=== PATIENT | male | born 1940 | race Caucasian/White ===

== ENCOUNTER 2016-03-31 16:54 | Inpatient (IN) | payer MEDICARE, BC ==
[2016-03-31] MEDS ORDERED: ACETAMINOPHEN 325 MG TABLET PO PRN (17:18)
[2016-03-31] MEDS ORDERED: INFLUENZA ADLT QUAD (36MOS+) 2016-17 VAC 0.5 ML SYR IM PRN (18:06)
[2016-03-31 18:19] LABS: ABSOLUTE EOSINOPHILS # (AUTO) 0.2 10^3/uL (0.0-0.6); ABSOLUTE LYMPHOCYTES (AUTO) 1.4 10^3/uL (0.5-4.7); ABSOLUTE MONOCYTES (AUTO) 1.2 10^3/uL (0.1-1.4); ABSOLUTE NEUT (AUTO) 3.6 10^3/uL (1.7-8.2); BASOPHILS % (AUTO) 0.7 % (0-2); EOSINOPHILS % (AUTO) 2.9 % (0-6); HEMATOCRIT 32.5 % (37.9-51.0); HEMOGLOBIN 9.9 g/dL (13.5-17.0); HGB HCT DIFFERENCE -2.8; LYMPHOCYTES % (AUTO) 21.7 % (13-45); MEAN CORPUSCULAR HEMOGLOBIN 22.8 pg (27.0-33.4); MEAN CORPUSCULAR HGB CONC 30.4 g/dL (32.0-36.0); MEAN CORPUSCULAR VOLUME 75 fl (80-97); MONOCYTES % (AUTO) 18.5 % (3-13); RED BLOOD COUNT 4.35 10^6/uL (4.35-5.55); RED CELL DISTRIBUTION WIDTH 16.9 % (11.5-14.0); SEGMENTED NEUTROPHILS % (AUTO) 56.2 % (42-78); WHITE BLOOD COUNT 6.4 10^3/uL (4.0-10.5)
[2016-03-31] MEDS ORDERED: DEXTROSE 40% GEL 15 GM TUBE PO PRN ×2 (18:24)
[2016-03-31] MEDS ORDERED: GLUCAGON,HUMAN RECOMB 1 MG INJ IM PRN (18:24)
[2016-03-31] MEDS ORDERED: DEXTROSE 50%-WATER 25 GM/50 ML DISP.SYRIN IV PRN ×2 (18:24)
[2016-03-31] MEDS ORDERED: INSULIN LISPRO 100 UNIT/ML 3 ML VIAL SUBCUT PRN (18:24)
[2016-03-31 18:25] LABS: PROTHROMBIN TIME 32.2 SEC (11.4-15.4)
[2016-03-31 19:19] LABS: ANION GAP 15 (5-19); BLOOD UREA NITROGEN 17 mg/dL (7-20); CALCIUM 9.6 mg/dL (8.4-10.2); CARBON DIOXIDE 25 mmol/L (22-30); CHLORIDE 102 mmol/L (98-107); GLUCOSE 115 mg/dL (75-110); MAGNESIUM 1.8 mg/dL (1.6-2.3); POTASSIUM 4.3 mmol/L (3.6-5.0); SODIUM 142.1 mmol/L (137-145)
[2016-03-31 20:25] LABS: CREATINE KINASE MB 1.64 ng/mL (<4.55); FOLATE > 20.00 ng/mL (>2.76); TROPONIN I 0.015 ng/mL
[2016-03-31] MEDS: NORMAL SALINE 250 ML with FUROSEMIDE 250 MG IV PRN ×2 (20:38)
--- NOTE | 2016-03-31 20:43 | CONSULTATION REPORT E ---
Consultation Report NAME: REJI LOUIS : 1940 AGE: 75Y DATE: 03/31/2016 535 A TO: EDGAR CRAVEN M.D. FROM: DAVID LOCKWOOD M.D. Requesting Physician HISTORY OF PRESENT ILLNESS: The patient is a 75-year-old male patient, consultation from hospitalist, Dr. Lockwood, admitted for management of increasing scrotal edema, increasing pedal edema, shortness of breath. Patient is a morbidly obese gentleman with problems with chronic lymphedema and multiple other comorbidities. Surgical consultation for a Li catheter because of extreme difficulty identifying the penile area. REVIEW OF SYSTEMS: Per examination. PHYSICAL EXAMINATION: GENERAL: Reveals a morbidly obese gentleman, obviously short of breath. HEAD/NECK: No lymphadenopathy, no masses. LUNGS: Both lungs with good air entry but some degree of wheeze present. ABDOMINAL: Obese abdomen, soft, nontender. GENITOURINARY: Groin area, scrotal area and bilateral area with extreme amount of swelling with soft tissue dependent edema present. Anal area completely covered up with edema. No palpable gaona glandis. ASSESSMENT AND PLAN: The patient needing Li catheter as per medical service. The patient is able to void urine. He did void urine in front of me, about 200 mL and after cleaning that area, I did attempt to examine gaona glandis. He has about 2-3 inches of skin swollen all the way beyond the level of gaona glandis, which is barely palpable. To be able to access the meatus, he would at least need a dorsal slit. I do not think it is recommendable at this point because it would not heal because of extensive amount of edema and much more moribund surgery. I would recommend as much as possible, try to avoid a Li at this point and monitor his hydration, monitor his edema, monitor his breathing, optimize him medically and then scrotal support. I recommend strongly to transfer him to tertiary care because of so many morbidities and he would need to be in a setting where there is a drafter seismograph and a urologist on board all the time. Recommended that and communicated the same to the patient's primary care. DICTATING PHYSICIAN: EDGAR CRAVEN M.D. [id number] PHY#: [id number] ID: [id number] JOB#: [id number] ACCT: [id number] cc:EDGAR CRAVEN M.D. > BRADEN
--- NOTE | 2016-03-31 21:01 | PDOC CONSULTATION ---
Consultation Consult Date: 03/31/16 Attending physician:: DAVID LE Consult reason:: CHF History of Present Illness Admission Date/PCP: 03/31/16 16:54 DAVID LE MD Patient complains of: Shortness of breath History of Present Illness: This is a 75-year-old maleWith the history of the congestive heart failure and currently see a cardiology at the [facility] with the ejection fraction was between 50-55% was and with the history of the chronic atrial fibrillations and on chronic Coumadin with the history of the, hyperlipidemia and the severe morbid obesity came to the my office today with a complaint of swelling in the lower extremity to both testicles and the very tightness in the abdominal area and a complaining of shortness of the breath. Patient's symptom is more worsening according to the patient for the last 2-3 days. Patient see the news librarian in the last February and told to continues to Lasix and his shortness of the breath with the multifactorial. Patient on questioning denied any chest pain. He denied any sustained palpitations, recent syncope or near syncope. Patient did have a recent hospitalization with urinary difficulty and scrotal edema. Past Medical History Cardiac Medical History: Reports: Atrial Fibrillation, Congestive Heart Failure , Coronary Artery Disease, Hyperlipidema, Hypertension, Other - Moderate pulmonary hypertension Pulmonary Medical History: Reports: Chronic Obstructive Pulmonary Disease (COPD) Endocrine Medical History: Reports: Diabetes Mellitus Type 2 Psychiatric Medical History: Denies: Depression Social History Information Source: Patient Smoking Status: Never Smoker Frequency of Alcohol Use: None Hx Recreational Drug Use: No Hx Prescription Drug Abuse: No - Advance Directive Resuscitation Status: Full Code Surrogate healthcare decision maker:: Patient's spouse Family History Family History: Reviewed & Not Pertinent Parental Family History Reviewed: Yes Children Family History Reviewed: Yes Sibling(s) Family History Reviewed.: Yes - Negative for premature coronary artery disease or sudden cardiac in the family amongst first degree relatives. Medication/Allergy Home Medications: Acetaminophen [Acetaminophen Extra Strength] 500 mg PO Q6HP PRN 03/31/16 Diphenhydramine HCl [Benadryl] 25 mg PO QHS 03/31/16 Furosemide [Lasix] 40 mg PO BID 03/31/16 Losartan Potassium 100 mg PO DAILY 03/31/16 Metformin HCl [Glucophage] 1,000 mg PO BID 03/31/16 Metoprolol Tartrate [Lopressor 50 mg Tablet] 50 mg PO Q12H 03/31/16 Montelukast Sodium [Singulair 10 mg Tablet] 10 mg PO QPM 03/31/16 Multivit-Minerals/Folic Acid [Centrum Multigummies] 80 mcg PO DAILY 03/31/16 Omeprazole 40 mg PO DAILY 03/31/16 Pioglitazone HCl [Actos] 45 mg PO DAILY 03/31/16 Potassium Chloride 1 tab PO Q2D 03/31/16 Simvastatin [Zocor 20 mg Tablet] 20 mg PO QPM 03/31/16 Warfarin Sodium [Coumadin 7.5 mg Tablet] 7.5 mg PO DAILY 03/31/16 Allergies/Adverse Reactions: No Known Allergies Allergy (Unverified 03/31/16 18:25) Review of Systems Review of Systems: Please see history of present illness and past medical history as wall. Constitutional: No fever or chills reported. Head : No recent chronic headaches, recent head injury. Eyes: No recent eye pain, diplopia, redness, discharge, acute visual changes. Ears: No recent chronic ear pain, acute hearing loss, ear discharge. Oral cavity: No recent ulcerations, bleeding, oral cavity discomfort. Neck: No recent acute neck pain reported. Hematologic: No recent easy bruising or bleeding or hematologic malignancy reported. Lymphatic: No recent lymphatic malignancy, chronic lymphadenopathy reported yet Cardiovascular system review: See history of present illness. Increasing pedal edema. No recent syncope or near syncope. Scrotal edema. Respiratory system review: No recent chronic cough, hemoptysis, blood clots in the lungs reported. Severe Shortness of breath on exertion Gastrointestinal system review: Negative for any recent acute or chronic abdominal pain, hematemesis, melena, recent change in bowel habits. Genitourinary system review: No recent acute or chronic hematuria, flank pain, UTI etc. reported. Scrotal edema and also difficulty with urination. Skin system review: Negative for any recent abnormal bruising, no rash, no pruritus reported. Neurologic: No prior history of strokes, mini strokes, seizure disorder. Psychologic: No history of major psychosis or depression reported. Musculoskeletal: Minor aches and pains reported. No acute joint swelling reported. Endocrine: No recent polyuria, polydipsia, recent heat or cold intolerance. Physical Exam Vital Signs: Temp Pulse Resp BP Pulse Ox 98.4 F 92 20 166/62 H 90 L 02/24/17 20:00 03/31/16 20:00 03/31/16 20:00 03/31/16 20:00 03/31/16 20:00 Intake & Output 03/30/16 03/31/16 04/01/16 06:59 06:59 06:59 Intake Total 0 Output Total 0 Balance 0 Weight 164.563 kg Exam: GENERAL: well-nourished and in no acute distress. Alert and oriented x3 HEAD: Atraumatic, normocephalic. EYES: Pupils equal round and reactive to light, extraocular movements intact, sclera anicteric, conjunctiva are normal. ENT: TMs normal, nares patent, oropharynx clear without exudates. Moist mucous membranes. No oral ulcerations or bleeding gums noted NECK: supple without lymphadenopathy. Trachea is central. No cervical or axillary lymphadenopathy noted. Carotids are 2+, JVD 14 CM LUNGS: Respiration seems nonlabored, no significant accessory muscle action noted. Bibasal a fine crackles noted with minimal dullness both bases. Occasional wheezing noted CHEST: Palpation of the chest wall shows no significant chest wall tenderness. No other significant abnormalities noted. HEART: [place] LENS EDGE GRINDER MACHINE, No PSH, 1/6 VINCE aortic area, 1/6 dailey systolic murmur mitral area, no rubs, no gallops. ABDOMEN: Soft, no significant tenderness appreciated, normoactive bowel sounds. No guarding, no rebound. No rigidity noted . No masses appreciated. EXTREMITIES: Pedal pulses are 1-2+, no calf tenderness noted. No clubbing or cyanosis.3 + pedal edema noted NEUROLOGICAL: Focused neurological exam showed no significant neurologic deficit. Normal speech, no focal weakness appreciated. PSYCH: Normal mood, normal affect. Judgment and insight within normal limits. SKIN: No significant ecchymosis, rash, ulcerations or signs of pruritus noted. MUSCULOSKELETAL EXAM: No significant joint swelling noted. Results Laboratory Results: 03/31/16 18:10 03/31/16 18:10 03/31/16 03/31/16 03/31/16 18:10 18:10 18:10 WBC 6.4 RBC 4.35 Hgb 9.9 L Hct 32.5 L MCV 75 L MCH 22.8 L MCHC 30.4 L RDW 16.9 H Plt Count 188 Seg Neutrophils % 56.2 Lymphocytes % 21.7 Monocytes % 18.5 H Eosinophils % 2.9 Basophils % 0.7 Absolute Neutrophils 3.6 Absolute Lymphocytes 1.4 Absolute Monocytes 1.2 Absolute Eosinophils 0.2 Absolute Basophils 0.0 Retic Count (auto) Absolute Retic Sodium 142.1 Potassium 4.3 Chloride 102 Carbon Dioxide 25 Anion Gap 15 BUN 17 Creatinine 1.00 Est GFR ( Amer) > 60 Est GFR (Non-Af Amer) > 60 Glucose 115 H Calcium 9.6 Magnesium 1.8 Iron TIBC % Saturation Ferritin Vitamin B12 Folate TSH 1.34 03/31/16 03/31/16 18:10 18:10 WBC RBC Hgb Hct MCV MCH MCHC RDW Plt Count Seg Neutrophils % Lymphocytes % Monocytes % Eosinophils % Basophils % Absolute Neutrophils Absolute Lymphocytes Absolute Monocytes Absolute Eosinophils Absolute Basophils Retic Count (auto) 1.76 Absolute Retic 0.076 Sodium Potassium Chloride Carbon Dioxide Anion Gap BUN Creatinine Est GFR ( Amer) Est GFR (Non-Af Amer) Glucose Calcium Magnesium Iron 22.0 L TIBC 436 % Saturation 5 Ferritin 23.80 Vitamin B12 302.0 Folate > 20.00 TSH 03/31/16 03/31/16 03/31/16 18:10 18:10 18:10 Creatine Kinase 59 CK-MB (CK-2) 1.64 Troponin I 0.015 NT-Pro-B Natriuret Pep 2010 H EKG Comments: Not available for review will order one. Assessment & Plan - Diagnosis (1) Anasarca Is this a current diagnosis for this admission?: YesPlan: Most likely related to chronic congestive heart failure, right heart failure. Will obtain a 2-D echo in the morning. In the meantime, agree with IV Lasix drip. Alternative will be oral Demadex. Patient will also benefit from spironolactone therapy. (2) Chronic atrial fibrillation Is this a current diagnosis for this admission?: YesPlan: Continue chronic anticoagulation with Coumadin. Follow INR. (3) Congestive heart failure Qualifiers: Congestive heart failure type: diastolic Is this a current diagnosis for this admission?: YesPlan: Patient will benefit from a repeat echocardiogram unless one has been obtained in the last 6 months. Patient will benefit from salt and fluid restriction. Patient will also benefit from nightly positive air pressure ventilation. (4) Hyperlipidemia Qualifiers: Hyperlipidemia type: unspecified Qualified Code(s): E78.5 - Hyperlipidemia, unspecified Is this a current diagnosis for this admission?: Yes (5) Hypertension Qualifiers: Hypertension type: essential hypertension Qualified Code(s): I10 - Essential (primary) hypertension Is this a current diagnosis for this admission?: YesPlan: Hypertension: Reasonably well controlled. Blood pressure goal in this patient is 135/85 or less. This was discussed with the patient. Currently blood pressure under reasonable control. Better medication for this patient are ALLIE inhibitor/ARB/beta tyrese etc. discussed side effects of uncontrolled hypertension and also severe hypotension. (6) Morbid obesity Qualifiers: Obesity type: unspecified obesity type Qualified Code(s): E66.01 - Morbid (severe) obesity due to excess calories Is this a current diagnosis for this admission?: Yes (7) Shortness of breath Is this a current diagnosis for this admission?: YesPlan: Most likely related to CHF along with severe obesity and deconditioning. - Notes Notes: CODE STATUS was discussed, patient remains full code. Surrogate decision-maker patient's . Multiple medical problems were addressed. - Time Time Spent: 30 to 50 Minutes - More than 50% of the time spent coordinating care , discussing management plans with involved caregivers. Management plans discussed with involved personnels. Medical decision making was of moderate complexity. Medications reviewed and adjusted accordingly: Yes
[2016-03-31 21:44] LABS: APPEARANCE,URINE SLIGHTLY-CLOUDY; BILIRUBIN,URINE NEGATIVE (NEGATIVE); GLUCOSE, URINE NEGATIVE (NEGATIVE); KETONES,URINE NEGATIVE (NEGATIVE); LEUKOCYTE ESTERASE,URINE NEGATIVE (NEGATIVE); NITRITE,URINE NEGATIVE (NEGATIVE); PROTEIN,URINE 100 mg/dL (NEGATIVE); URINE SPECIFIC GRAVITY 1.023; UROBILINOGEN,URINE NEGATIVE mg/dL (<2.0)
--- NOTE | 2016-03-31 23:36 | EKG REPORT ---
SEVERITY:- ABNORMAL ECG - ATRIAL FIBRILLATION INCOMPLETE RIGHT BUNDLE BRANCH BLOCK LOW VOLTAGE THROUGHOUT BORDERLINE R WAVE PROGRESSION, ANTERIOR LEADS : Confirmed by: Taylor Murdock MD 31-Mar-2016 23:35:29
[2016-04-01] MEDS: PIOGLITAZONE HCL 30 MG TABLET PO SCH (08:49)
[2016-04-01 09:48] LABS: ABSOLUTE EOSINOPHILS # (AUTO) 0.1 10^3/uL (0.0-0.6); ABSOLUTE LYMPHOCYTES (AUTO) 1.1 10^3/uL (0.5-4.7); ABSOLUTE MONOCYTES (AUTO) 0.8 10^3/uL (0.1-1.4); ABSOLUTE NEUT (AUTO) 3.2 10^3/uL (1.7-8.2); BASOPHILS % (AUTO) 0.6 % (0-2); HEMOGLOBIN 9.5 g/dL (13.5-17.0); HGB HCT DIFFERENCE -2.5; LYMPHOCYTES % (AUTO) 20.1 % (13-45); MEAN CORPUSCULAR HEMOGLOBIN 23.1 pg (27.0-33.4); MEAN CORPUSCULAR HGB CONC 30.7 g/dL (32.0-36.0); MEAN CORPUSCULAR VOLUME 75 fl (80-97); MONOCYTES % (AUTO) 16.1 % (3-13); RED BLOOD COUNT 4.13 10^6/uL (4.35-5.55); RED CELL DISTRIBUTION WIDTH 17.4 % (11.5-14.0); SEGMENTED NEUTROPHILS % (AUTO) 61.2 % (42-78); WHITE BLOOD COUNT 5.3 10^3/uL (4.0-10.5)
[2016-04-01 09:53] LABS: PROTHROMBIN TIME 31.8 SEC (11.4-15.4)
[2016-04-01] MEDS: SPIRONOLACTONE 25 MG TABLET PO SCH (10:12)
[2016-04-01] MEDS: METOPROLOL TARTRATE 50 MG TABLET PO SCH ×2 (10:12→22:50)
[2016-04-01] MEDS: TORSEMIDE 20 MG TABLET PO SCH (10:12)
[2016-04-01] MEDS: LOSARTAN POTASSIUM 50 MG TABLET PO SCH (10:12)
[2016-04-01] MEDS: ASPIRIN 81 MG TABLET, ENT COATED PO SCH (10:13)
[2016-04-01 11:16] LABS: ALANINE AMINOTRANSFERASE 32 U/L (21-72); ALBUMIN 3.9 g/dL (3.5-5.0); ALKALINE PHOSPHATASE 65 U/L (38-126); ANION GAP 16 (5-19); ASPARTATE AMINO TRANSFERASE 27 U/L (17-59); BILIRUBIN,TOTAL 0.9 mg/dL (0.2-1.3); BLOOD UREA NITROGEN 15 mg/dL (7-20); CALCIUM 9.3 mg/dL (8.4-10.2); CARBON DIOXIDE 27 mmol/L (22-30); CHLORIDE 99 mmol/L (98-107); CREATININE RESULT 0.99 mg/dL (0.52-1.25); GLUCOSE 97 mg/dL (75-110); POTASSIUM 3.9 mmol/L (3.6-5.0); SODIUM 141.5 mmol/L (137-145); TOTAL PROTEIN 6.6 g/dL (6.3-8.2)
[2016-04-01] MEDS ORDERED: (PENDING PHARMACY ID) (Acetaminophen [Acetaminophen Extra Strength] 500 MG) PO PRN (11:16)
--- NOTE | 2016-04-01 11:21 | PDOC PROGRESS REPORT ---
Subjective Progress Note for:: 04/01/16 Subjective:: Patient is feeling better compared to yesterday after the start the Lasix drip for. Patient's denied any chest pain and no shortness of the breath is much better. Patient still have a significant swelling in the lower extremity in the testicular area and unable to put the Li catheter because of the lip swelling near the glans and at this point the the consult the surgery and suggest the patient's need a urology to put the Li catheter but the patient at this point urinating fine and I think we just hold the Li catheter placement. Was the urologist is not available in the hospital. Patient's actually feeling better and there is no issue with the urinations so I think he should be okay without the Li catheter. Patient seen by the postal carrier and suggest the continues the current medications and patient's already therapeutic INR Physical Exam Vital Signs: Temp Pulse Resp BP Pulse Ox 97.9 F 103 H 18 135/114 H 97 04/01/16 08:24 04/01/16 08:24 04/01/16 08:24 04/01/16 08:24 04/01/16 08:24 Intake & Output 03/31/16 04/01/16 04/02/16 06:59 06:59 06:59 Intake Total 50 Output Total 1400 Balance -1350 Weight 157.896 kg General appearance: PRESENT: no acute distress, well-developed, well-nourished Head exam: PRESENT: atraumatic, normocephalic Eye exam: PRESENT: conjunctiva pink, EOMI, PERRLA. ABSENT: scleral icterus Ear exam: PRESENT: normal external ear exam Mouth exam: PRESENT: moist, tongue midline Neck exam: PRESENT: full ROM. ABSENT: carotid bruit, JVD, lymphadenopathy, thyromegaly Respiratory exam: PRESENT: decreased breath sounds Cardiovascular exam: PRESENT: RRR. ABSENT: diastolic murmur, rubs, systolic murmur Pulses: PRESENT: normal dorsalis pedis pul, +2 pedal pulses bilateral Vascular exam: PRESENT: normal capillary refill GI/Abdominal exam: PRESENT: normal bowel sounds, soft. ABSENT: distended, guarding, mass, organolmegaly, rebound, tenderness Rectal exam: PRESENT: deferred Gentrourinary exam: PRESENT: scrotal swelling Extremities exam: PRESENT: pedal edema Neurological exam: PRESENT: alert, awake, oriented to person, oriented to place , oriented to time, oriented to situation, CN II-XII grossly intact. ABSENT: motor sensory deficit Psychiatric exam: PRESENT: appropriate affect, normal mood. ABSENT: homicidal ideation, suicidal ideation Skin exam: PRESENT: dry, intact, warm. ABSENT: cyanosis, rash Results Laboratory Results: 04/01/16 07:11 04/01/16 10:22 03/31/16 03/31/16 03/31/16 18:10 18:10 18:10 WBC 6.4 RBC 4.35 Hgb 9.9 L Hct 32.5 L MCV 75 L MCH 22.8 L MCHC 30.4 L RDW 16.9 H Plt Count 188 Seg Neutrophils % 56.2 Lymphocytes % 21.7 Monocytes % 18.5 H Eosinophils % 2.9 Basophils % 0.7 Absolute Neutrophils 3.6 Absolute Lymphocytes 1.4 Absolute Monocytes 1.2 Absolute Eosinophils 0.2 Absolute Basophils 0.0 Retic Count (auto) Absolute Retic Sodium 142.1 Potassium 4.3 Chloride 102 Carbon Dioxide 25 Anion Gap 15 BUN 17 Creatinine 1.00 Est GFR ( Amer) > 60 Est GFR (Non-Af Amer) > 60 Glucose 115 H Calcium 9.6 Magnesium 1.8 Iron TIBC % Saturation Ferritin Total Bilirubin AST ALT Alkaline Phosphatase Total Protein Albumin Vitamin B12 Folate TSH 1.34 Urine Color Urine Appearance Urine pH Ur Specific [place] Urine Protein Urine Glucose (UA) Urine Ketones Urine Blood Urine Nitrite Ur Leukocyte Esterase Urine WBC (Auto) Urine RBC (Auto) 03/31/16 03/31/16 03/31/16 18:10 18:10 21:20 WBC RBC Hgb Hct MCV MCH MCHC RDW Plt Count Seg Neutrophils % Lymphocytes % Monocytes % Eosinophils % Basophils % Absolute Neutrophils Absolute Lymphocytes Absolute Monocytes Absolute Eosinophils Absolute Basophils Retic Count (auto) 1.76 Absolute Retic 0.076 Sodium Potassium Chloride Carbon Dioxide Anion Gap BUN Creatinine Est GFR ( Amer) Est GFR (Non-Af Amer) Glucose Calcium Magnesium Iron 22.0 L TIBC 436 % Saturation 5 Ferritin 23.80 Total Bilirubin AST ALT Alkaline Phosphatase Total Protein Albumin Vitamin B12 302.0 Folate > 20.00 TSH Urine Color YELLOW Urine Appearance SLIGHTLY-CLOUDY Urine pH 5.0 Ur Specific [place] 1.023 Urine Protein 100 H Urine Glucose (UA) NEGATIVE Urine Ketones NEGATIVE Urine Blood NEGATIVE Urine Nitrite NEGATIVE Ur Leukocyte Esterase NEGATIVE Urine WBC (Auto) 1 Urine RBC (Auto) 1 04/01/16 04/01/16 07:11 10:22 WBC 5.3 RBC 4.13 L Hgb 9.5 L Hct 31.0 L MCV 75 L MCH 23.1 L MCHC 30.7 L RDW 17.4 H Plt Count 157 Seg Neutrophils % 61.2 Lymphocytes % 20.1 Monocytes % 16.1 H Eosinophils % 2.0 Basophils % 0.6 Absolute Neutrophils 3.2 Absolute Lymphocytes 1.1 Absolute Monocytes 0.8 Absolute Eosinophils 0.1 Absolute Basophils 0.0 Retic Count (auto) Absolute Retic Sodium 141.5 Potassium 3.9 Chloride 99 Carbon Dioxide 27 Anion Gap 16 BUN 15 Creatinine 0.99 Est GFR ( Amer) > 60 Est GFR (Non-Af Amer) > 60 Glucose 97 Calcium 9.3 Magnesium Iron TIBC % Saturation Ferritin Total Bilirubin 0.9 AST 27 ALT 32 Alkaline Phosphatase 65 Total Protein 6.6 Albumin 3.9 Vitamin B12 Folate TSH Urine Color Urine Appearance Urine pH Ur Specific [place] Urine Protein Urine Glucose (UA) Urine Ketones Urine Blood Urine Nitrite Ur Leukocyte Esterase Urine WBC (Auto) Urine RBC (Auto) 03/31/16 03/31/16 03/31/16 18:10 18:10 18:10 Creatine Kinase 59 CK-MB (CK-2) 1.64 Troponin I 0.015 NT-Pro-B Natriuret Pep 2010 H Assessment & Plan - Diagnosis (1) Anasarca Is this a current diagnosis for this admission?: YesPlan: Continues the Lasix drip and follow with the cardiology (2) Congestive heart failure Qualifiers: Congestive heart failure type: diastolic Is this a current diagnosis for this admission?: YesPlan: The right-sided congestive heart failure and continues the current medication (3) Chronic atrial fibrillation Is this a current diagnosis for this admission?: YesPlan: On chronic Coumadin (4) Hypertension Qualifiers: Hypertension type: essential hypertension Qualified Code(s): I10 - Essential (primary) hypertension Is this a current diagnosis for this admission?: YesPlan: Continuous current medication (5) Hyperlipidemia Qualifiers: Hyperlipidemia type: unspecified Qualified Code(s): E78.5 - Hyperlipidemia, unspecified Is this a current diagnosis for this admission?: YesPlan: Stable (6) Morbid obesity Qualifiers: Obesity type: unspecified obesity type Qualified Code(s): E66.01 - Morbid (severe) obesity due to excess calories Is this a current diagnosis for this admission?: YesPlan: Patient is probably need a sleep study (7) Shortness of breath Is this a current diagnosis for this admission?: YesPlan: Most likely from the congestive heart failure will do the CT of the chest without contrast pain patient's probably need a sleep study - Time Time Spent with patient: 15-24 minutes Medications reviewed and adjusted accordingly: Yes Anticipated discharge: Home Within: Other - Inpatient Certification Medical Necessity: Need Close Monitoring Due to Risk of Patient Decompensation Post Hospital Care: D/C [employer] Documentation - Plan Summary Plan Summary: Contiguous the current medications discussed with the patient and the family and discussed with the cardiology the patient's continues to be improving
[2016-04-01] MEDS ORDERED: POTASSIUM CHLORIDE PO SCH (11:30)
[2016-04-01] MEDS ORDERED: METOPROLOL TARTRATE 50 MG TABLET PO SCH (11:30)
[2016-04-01] MEDS ORDERED: LOSARTAN POTASSIUM 50 MG TABLET PO ONE (13:00)
[2016-04-01] MEDS ORDERED: LANSOPRAZOLE 30 MG TAB.RAP.DR PO ONE (13:00)
--- NOTE | 2016-04-01 14:23 | PDOC PROGRESS REPORT ---
Subjective Progress Note for:: 04/01/16 Subjective:: Patient seems to be doing better with gradual improvement. Pt is denying any chest arm or neck discomfort. Patient denying any PND, orthopnea. Patient denied any sustained palpitations, dizziness, syncope, near syncope. Patient denying any fever chills. Patient denying any other significant discomfort. Patient still has significant pedal edema and dyspnea but improved since yesterday. Patient is maintaining atrial fibrillation with controlled ventricular response Review of systems: Rest review of systems negative. Medications: Medications have been reviewed. Physical Exam Vital Signs: Temp Pulse Resp BP Pulse Ox 97.9 F 98 18 106/60 96 04/01/16 11:32 04/01/16 11:32 04/01/16 11:32 04/01/16 11:32 04/01/16 11:32 Intake & Output 03/31/16 04/01/16 04/02/16 06:59 06:59 06:59 Intake Total 50 Output Total 1400 Balance -1350 Weight 157.896 kg Exam: GENERAL: well-nourished and in no acute distress. Alert and oriented x3 HEAD: Atraumatic, normocephalic. EYES: Pupils equal round and reactive to light, extraocular movements intact, sclera anicteric, conjunctiva are normal. ENT: TMs normal, nares patent, oropharynx clear without exudates. Moist mucous membranes. No oral ulcerations or bleeding gums noted NECK: supple without lymphadenopathy. Trachea is central. No cervical or axillary lymphadenopathy noted. Carotids are 2+, JVD 12 CENTIMETERS LUNGS: Respiration seems nonlabored, no significant accessory muscle action noted. Breath sounds clear to auscultation bilaterally and equal noted. No wheezes rales or rhonchi noted. No significant dullness noted on percussion. CHEST: Palpation of the chest wall shows no significant chest wall tenderness. No other significant abnormalities noted. 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 ABDOMEN: Soft, no significant tenderness appreciated, normoactive bowel sounds. No guarding, no rebound. No rigidity noted . No masses appreciated. EXTREMITIES: Pedal pulses are 1-2+, no calf tenderness noted. No clubbing or cyanosis.3+ pedal edema noted NEUROLOGICAL: Focused neurological exam showed no significant neurologic deficit. Normal speech, no focal weakness appreciated. PSYCH: Normal mood, normal affect. Judgment and insight within normal limits. SKIN: No significant ecchymosis, mild erythematous rash noted both lower extremity. MUSCULOSKELETAL EXAM: No significant joint swelling noted. Results Laboratory Results: 04/01/16 07:11 04/01/16 10:22 03/31/16 03/31/16 03/31/16 18:10 18:10 18:10 WBC 6.4 RBC 4.35 Hgb 9.9 L Hct 32.5 L MCV 75 L MCH 22.8 L MCHC 30.4 L RDW 16.9 H Plt Count 188 Seg Neutrophils % 56.2 Lymphocytes % 21.7 Monocytes % 18.5 H Eosinophils % 2.9 Basophils % 0.7 Absolute Neutrophils 3.6 Absolute Lymphocytes 1.4 Absolute Monocytes 1.2 Absolute Eosinophils 0.2 Absolute Basophils 0.0 Retic Count (auto) Absolute Retic Sodium 142.1 Potassium 4.3 Chloride 102 Carbon Dioxide 25 Anion Gap 15 BUN 17 Creatinine 1.00 Est GFR ( Amer) > 60 Est GFR (Non-Af Amer) > 60 Glucose 115 H Calcium 9.6 Magnesium 1.8 Iron TIBC % Saturation Ferritin Total Bilirubin AST ALT Alkaline Phosphatase Total Protein Albumin Vitamin B12 Folate TSH 1.34 Urine Color Urine Appearance Urine pH Ur Specific Alpha Urine Protein Urine Glucose (UA) Urine Ketones Urine Blood Urine Nitrite Ur Leukocyte Esterase Urine WBC (Auto) Urine RBC (Auto) 03/31/16 03/31/16 03/31/16 18:10 18:10 21:20 WBC RBC Hgb Hct MCV MCH MCHC RDW Plt Count Seg Neutrophils % Lymphocytes % Monocytes % Eosinophils % Basophils % Absolute Neutrophils Absolute Lymphocytes Absolute Monocytes Absolute Eosinophils Absolute Basophils Retic Count (auto) 1.76 Absolute Retic 0.076 Sodium Potassium Chloride Carbon Dioxide Anion Gap BUN Creatinine Est GFR ( Amer) Est GFR (Non-Af Amer) Glucose Calcium Magnesium Iron 22.0 L TIBC 436 % Saturation 5 Ferritin 23.80 Total Bilirubin AST ALT Alkaline Phosphatase Total Protein Albumin Vitamin B12 302.0 Folate > 20.00 TSH Urine Color YELLOW Urine Appearance SLIGHTLY-CLOUDY Urine pH 5.0 Ur Specific Alpha 1.023 Urine Protein 100 H Urine Glucose (UA) NEGATIVE Urine Ketones NEGATIVE Urine Blood NEGATIVE Urine Nitrite NEGATIVE Ur Leukocyte Esterase NEGATIVE Urine WBC (Auto) 1 Urine RBC (Auto) 1 04/01/16 04/01/16 07:11 10:22 WBC 5.3 RBC 4.13 L Hgb 9.5 L Hct 31.0 L MCV 75 L MCH 23.1 L MCHC 30.7 L RDW 17.4 H Plt Count 157 Seg Neutrophils % 61.2 Lymphocytes % 20.1 Monocytes % 16.1 H Eosinophils % 2.0 Basophils % 0.6 Absolute Neutrophils 3.2 Absolute Lymphocytes 1.1 Absolute Monocytes 0.8 Absolute Eosinophils 0.1 Absolute Basophils 0.0 Retic Count (auto) Absolute Retic Sodium 141.5 Potassium 3.9 Chloride 99 Carbon Dioxide 27 Anion Gap 16 BUN 15 Creatinine 0.99 Est GFR ( Amer) > 60 Est GFR (Non-Af Amer) > 60 Glucose 97 Calcium 9.3 Magnesium Iron TIBC % Saturation Ferritin Total Bilirubin 0.9 AST 27 ALT 32 Alkaline Phosphatase 65 Total Protein 6.6 Albumin 3.9 Vitamin B12 Folate TSH Urine Color Urine Appearance Urine pH Ur Specific Alpha Urine Protein Urine Glucose (UA) Urine Ketones Urine Blood Urine Nitrite Ur Leukocyte Esterase Urine WBC (Auto) Urine RBC (Auto) 03/31/16 03/31/16 03/31/16 18:10 18:10 18:10 Creatine Kinase 59 CK-MB (CK-2) 1.64 Troponin I 0.015 NT-Pro-B Natriuret Pep 2010 H Impressions: Chest CT 04/01/16 00:00 IMPRESSION: 1. Cardiomegaly. Right pleural effusion. 2. Cirrhosis. Mild ascites. Assessment & Plan - Diagnosis (1) Anasarca Is this a current diagnosis for this admission?: Yes (2) Chronic atrial fibrillation Is this a current diagnosis for this admission?: Yes (3) Congestive heart failure Qualifiers: Congestive heart failure type: diastolic Is this a current diagnosis for this admission?: Yes (4) Hyperlipidemia Qualifiers: Hyperlipidemia type: unspecified Qualified Code(s): E78.5 - Hyperlipidemia, unspecified Is this a current diagnosis for this admission?: Yes (5) Hypertension Qualifiers: Hypertension type: essential hypertension Qualified Code(s): I10 - Essential (primary) hypertension Is this a current diagnosis for this admission?: Yes (6) Morbid obesity Qualifiers: Obesity type: unspecified obesity type Qualified Code(s): E66.01 - Morbid (severe) obesity due to excess calories Is this a current diagnosis for this admission?: Yes (7) Shortness of breath Is this a current diagnosis for this admission?: Yes - Notes Notes: Anasarca: Related to CHF, predominantly right-sided. Patient on IV Lasix. Have placed patient on by mouth torsemide 20 mg. Chronic atrial fibrillation: Rate is well controlled. Continue chronic Coumadin therapy. Congestive heart failure: [place] to be predominantly right-sided. Patient tells me that his echocardiogram was quite some time ago. It may be worthwhile to consider a 2-D echo. Dyslipidemia: Currently stable. Continue statin therapy. Hypertension: Blood pressure well controlled. Morbid obesity: Patient will benefit from weight loss. Dyspnea: Related to CHF, obesity, deconditioning, probable underlying COPD. CT scan results reviewed. Patient noted to have moderate right pleural effusion as well as cirrhosis and ascites. Patient was placed on spironolactone. Dose will be increased. - Time Time with patient: Greater than 35 minutes - CODE STATUS was discussed, patient remains full code. Surrogate decision-maker unchanged. Multiple medical problems were addressed.More than 50% of the time spent coordinating care, discussing management plans with involved caregivers. Management plans discussed with involved personnels. Medical decision making was of moderate complexity.
[2016-04-01] MEDS ORDERED: ACETAMINOPHEN 325 MG TABLET PO PRN (15:22)
[2016-04-01] MEDS ORDERED: SIMVASTATIN 10 MG TABLET PO SCH (18:00)
[2016-04-01] MEDS ORDERED: MONTELUKAST SODIUM 10 MG TABLET PO SCH (18:00)
[2016-04-01] MEDS: MONTELUKAST SODIUM 10 MG TABLET PO SCH (20:35)
[2016-04-01] MEDS ORDERED: WARFARIN SODIUM 7.5 MG TABLET PO SCH (22:00)
[2016-04-01] MEDS: CEFEPIME 1 GM/D5W RTU 50 ML IV SCH (22:48)
[2016-04-01] MEDS: DIPHENHYDRAMINE HCL 25 MG CAPSULE PO SCH (22:49)
[2016-04-01] MEDS: SIMVASTATIN 10 MG TABLET PO SCH (22:49)
[2016-04-01] MEDS: NORMAL SALINE 250 ML with FUROSEMIDE 250 MG IV PRN ×2 (22:49)
[2016-04-02] MEDS ORDERED: LANSOPRAZOLE 30 MG TAB.RAP.DR PO SCH (06:00)
[2016-04-02 07:41] LABS: ABSOLUTE EOSINOPHILS # (AUTO) 0.1 10^3/uL (0.0-0.6); ABSOLUTE LYMPHOCYTES (AUTO) 0.8 10^3/uL (0.5-4.7); ABSOLUTE MONOCYTES (AUTO) 0.8 10^3/uL (0.1-1.4); ABSOLUTE NEUT (AUTO) 3.7 10^3/uL (1.7-8.2); BASOPHILS % (AUTO) 0.3 % (0-2); EOSINOPHILS % (AUTO) 2.4 % (0-6); HEMATOCRIT 32.4 % (37.9-51.0); HEMOGLOBIN 9.9 g/dL (13.5-17.0); HGB HCT DIFFERENCE -2.7; LYMPHOCYTES % (AUTO) 15.2 % (13-45); MEAN CORPUSCULAR HEMOGLOBIN 23.1 pg (27.0-33.4); MEAN CORPUSCULAR HGB CONC 30.6 g/dL (32.0-36.0); MEAN CORPUSCULAR VOLUME 76 fl (80-97); MONOCYTES % (AUTO) 14.7 % (3-13); RED BLOOD COUNT 4.29 10^6/uL (4.35-5.55); RED CELL DISTRIBUTION WIDTH 17.1 % (11.5-14.0); SEGMENTED NEUTROPHILS % (AUTO) 67.4 % (42-78); WHITE BLOOD COUNT 5.6 10^3/uL (4.0-10.5)
[2016-04-02 07:54] LABS: PROTHROMBIN TIME 33.9 SEC (11.4-15.4)
[2016-04-02 08:02] LABS: ANION GAP 12 (5-19); BLOOD UREA NITROGEN 16 mg/dL (7-20); CARBON DIOXIDE 32 mmol/L (22-30); CHLORIDE 96 mmol/L (98-107); CREATININE RESULT 1.07 mg/dL (0.52-1.25); GLUCOSE 111 mg/dL (75-110); POTASSIUM 3.5 mmol/L (3.6-5.0); SODIUM 140.4 mmol/L (137-145)
[2016-04-02] MEDS: PIOGLITAZONE HCL 30 MG TABLET PO SCH (08:06)
[2016-04-02] MEDS: CEFEPIME 1 GM/D5W RTU 50 ML IV SCH ×2 (09:48→21:45)
[2016-04-02] MEDS: SPIRONOLACTONE 25 MG TABLET PO SCH (09:51)
[2016-04-02] MEDS: POTASSIUM CHLORIDE 10 MEQ TABLET.SA PO SCH (09:52)
[2016-04-02] MEDS: LOSARTAN POTASSIUM 50 MG TABLET PO SCH (09:52)
[2016-04-02] MEDS: METOPROLOL TARTRATE 50 MG TABLET PO SCH ×2 (09:52→21:46)
[2016-04-02] MEDS: TORSEMIDE 20 MG TABLET PO SCH (09:52)
[2016-04-02] MEDS: ASPIRIN 81 MG TABLET, ENT COATED PO SCH (09:52)
[2016-04-02] MEDS ORDERED: (PENDING PHARMACY ID) (Losartan Potassium [Losartan Potassium] 100 MG) PO SCH (10:00)
[2016-04-02] MEDS ORDERED: (PENDING PHARMACY ID) (Warfarin Sodium 7.5 MG) PO SCH (10:00)
[2016-04-02] MEDS ORDERED: LOSARTAN POTASSIUM 50 MG TABLET PO SCH (10:00)
[2016-04-02] MEDS ORDERED: POTASSIUM CHLORIDE 10 MEQ TABLET.SA PO SCH (10:00)
[2016-04-02] MEDS ORDERED: POTASSIUM CHLORIDE 10 MEQ TABLET.SA PO ONE (11:30)
--- NOTE | 2016-04-02 11:33 | PDOC PROGRESS REPORT ---
Subjective Progress Note for:: 04/02/16 Subjective:: Patient is doing fair patient's CT chest was submitted pleural effusion and CT abdomen and pelvis swelling the ascites and cirrhosis of the liver and most likely is coming from the right-sided heart failure as per discussed with the cardiology. Patient's currently on a Lasix drip and patient's currently doing fair and a much better. Patient's the urinating well any problem Physical Exam Vital Signs: Temp Pulse Resp BP Pulse Ox 97.8 F 124 H 19 132/66 H 99 04/02/16 08:08 04/02/16 08:08 04/02/16 08:08 04/02/16 08:08 04/02/16 08:08 Intake & Output 04/01/16 04/02/16 04/03/16 06:59 06:59 06:59 Intake Total 50 1811 Output Total 1400 2170 Balance -1350 -359 Weight 157.896 kg 158.6 kg General appearance: PRESENT: no acute distress, well-developed, well-nourished Head exam: PRESENT: atraumatic, normocephalic Eye exam: PRESENT: conjunctiva pink, EOMI, PERRLA. ABSENT: scleral icterus Ear exam: PRESENT: normal external ear exam Mouth exam: PRESENT: moist, tongue midline Neck exam: PRESENT: full ROM. ABSENT: carotid bruit, JVD, lymphadenopathy, thyromegaly Respiratory exam: PRESENT: decreased breath sounds Cardiovascular exam: PRESENT: RRR. ABSENT: diastolic murmur, rubs, systolic murmur Pulses: PRESENT: normal dorsalis pedis pul, +2 pedal pulses bilateral Vascular exam: PRESENT: normal capillary refill GI/Abdominal exam: PRESENT: ascites, normal bowel sounds. ABSENT: rebound, tenderness Rectal exam: PRESENT: deferred Extremities exam: PRESENT: pedal edema Additional comments: Sorotal edema Neurological exam: PRESENT: alert, awake, oriented to person, oriented to place , oriented to time, oriented to situation, CN II-XII grossly intact. ABSENT: motor sensory deficit Psychiatric exam: PRESENT: appropriate affect, normal mood. ABSENT: homicidal ideation, suicidal ideation Skin exam: PRESENT: dry, intact, warm. ABSENT: cyanosis, rash Results Laboratory Results: 04/02/16 07:28 04/02/16 07:28 02/26/17 02/26/17 07:28 07:28 WBC 5.6 RBC 4.29 L Hgb 9.9 L Hct 32.4 L MCV 76 L MCH 23.1 L MCHC 30.6 L RDW 17.1 H Plt Count 178 Seg Neutrophils % 67.4 Lymphocytes % 15.2 Monocytes % 14.7 H Eosinophils % 2.4 Basophils % 0.3 Absolute Neutrophils 3.7 Absolute Lymphocytes 0.8 Absolute Monocytes 0.8 Absolute Eosinophils 0.1 Absolute Basophils 0.0 Sodium 140.4 Potassium 3.5 L Chloride 96 L Carbon Dioxide 32 H Anion Gap 12 BUN 16 Creatinine 1.07 Est GFR ( Amer) > 60 Est GFR (Non-Af Amer) > 60 Glucose 111 H Calcium 9.0 03/31/16 03/31/16 03/31/16 18:10 18:10 18:10 Creatine Kinase 59 CK-MB (CK-2) 1.64 Troponin I 0.015 NT-Pro-B Natriuret Pep 2010 H Impressions: Abdomen/Pelvis CT 04/01/16 00:00 IMPRESSION: Cirrhosis. Ascites. No acute findings. Chest CT 04/01/16 00:00 IMPRESSION: 1. Cardiomegaly. Right pleural effusion. 2. Cirrhosis. Mild ascites. Assessment & Plan - Diagnosis (1) Anasarca Is this a current diagnosis for this admission?: YesPlan: Continues the Lasix drip and follow with the cardiology (2) Congestive heart failure Qualifiers: Congestive heart failure type: unspecified congestive heart failure type Is this a current diagnosis for this admission?: YesPlan: Right-sided congestive heart failure continues IV Lasix drip (3) Chronic atrial fibrillation Is this a current diagnosis for this admission?: YesPlan: On chronic Coumadin (4) Hypertension Qualifiers: Hypertension type: essential hypertension Qualified Code(s): I10 - Essential (primary) hypertension Is this a current diagnosis for this admission?: YesPlan: Continuous current medication (5) Hyperlipidemia Qualifiers: Hyperlipidemia type: unspecified Qualified Code(s): E78.5 - Hyperlipidemia, unspecified Is this a current diagnosis for this admission?: YesPlan: Stable (6) Morbid obesity Qualifiers: Obesity type: unspecified obesity type Qualified Code(s): E66.01 - Morbid (severe) obesity due to excess calories Is this a current diagnosis for this admission?: YesPlan: Patient is probably need a sleep study (7) Shortness of breath Is this a current diagnosis for this admission?: Yes - Time Time Spent with patient: 15-24 minutes Medications reviewed and adjusted accordingly: Yes Anticipated discharge: Home Within: Other - Inpatient Certification Medical Necessity: Significant Comorbidiites Make Outpatient Treatment Too Risky , Need Close Monitoring Due to Risk of Patient Decompensation 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 Discussed with the patient and the about the current conditions
--- NOTE | 2016-04-02 13:17 | PDOC PROGRESS REPORT ---
Subjective Progress Note for:: 04/02/16 Subjective:: Patient seems to be doing better with gradual improvement. Pt is denying any chest arm or neck discomfort. Patient denying any PND, orthopnea. Patient denied any sustained palpitations, dizziness, syncope, near syncope. Patient denying any fever chills. Patient denying any other significant discomfort. Patient still has significant pedal edema and dyspnea but improved since yesterday. Patient is maintaining atrial fibrillation with controlled ventricular response. Patient denied any problems with urination. Review of systems: Rest review of systems negative. Medications: Medications have been reviewed. Physical Exam Vital Signs: Temp Pulse Resp BP Pulse Ox 98.0 F 97 19 112/62 93 04/02/16 12:03 04/02/16 12:03 04/02/16 12:03 04/02/16 12:03 04/02/16 12:03 Intake & Output 04/01/16 04/02/16 04/03/16 06:59 06:59 06:59 Intake Total 50 1811 Output Total 1400 2170 Balance -1350 -359 Weight 157.896 kg 158.6 kg Exam: GENERAL: well-nourished and in no acute distress. Alert and oriented x3 HEAD: Atraumatic, normocephalic. EYES: Pupils equal round and reactive to light, extraocular movements intact, sclera anicteric, conjunctiva are normal. ENT: TMs normal, nares patent, oropharynx clear without exudates. Moist mucous membranes. No oral ulcerations or bleeding gums noted NECK: supple without lymphadenopathy. Trachea is central. No cervical or axillary lymphadenopathy noted. Carotids are 2+, JVD 10 CM LUNGS: Respiration seems nonlabored, no significant accessory muscle action noted. Breath sounds clear to auscultation bilaterally and equal noted. No wheezes rales or rhonchi noted. No significant dullness noted on percussion. CHEST: Palpation of the chest wall shows no significant chest wall tenderness. No other significant abnormalities noted. 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 ABDOMEN: Soft, no significant tenderness appreciated, normoactive bowel sounds. No guarding, no rebound. No rigidity noted . No masses appreciated. EXTREMITIES: Pedal pulses are 1-2+, no calf tenderness noted. No clubbing or cyanosis.2-3 + pedal edema noted. Mild lower leg erythematous changes noted NEUROLOGICAL: Focused neurological exam showed no significant neurologic deficit. Normal speech, no focal weakness appreciated. PSYCH: Normal mood, normal affect. Judgment and insight within normal limits. SKIN: No significant ecchymosis, rash, ulcerations or signs of pruritus noted. MUSCULOSKELETAL EXAM: No significant joint swelling noted. Results Laboratory Results: 04/02/16 07:28 04/02/16 07:28 04/02/16 04/02/16 07:28 07:28 WBC 5.6 RBC 4.29 L Hgb 9.9 L Hct 32.4 L MCV 76 L MCH 23.1 L MCHC 30.6 L RDW 17.1 H Plt Count 178 Seg Neutrophils % 67.4 Lymphocytes % 15.2 Monocytes % 14.7 H Eosinophils % 2.4 Basophils % 0.3 Absolute Neutrophils 3.7 Absolute Lymphocytes 0.8 Absolute Monocytes 0.8 Absolute Eosinophils 0.1 Absolute Basophils 0.0 Sodium 140.4 Potassium 3.5 L Chloride 96 L Carbon Dioxide 32 H Anion Gap 12 BUN 16 Creatinine 1.07 Est GFR ( Amer) > 60 Est GFR (Non-Af Amer) > 60 Glucose 111 H Calcium 9.0 03/31/16 03/31/16 03/31/16 18:10 18:10 18:10 Creatine Kinase 59 CK-MB (CK-2) 1.64 Troponin I 0.015 NT-Pro-B Natriuret Pep 2010 H Impressions: Abdomen/Pelvis CT 04/01/16 00:00 IMPRESSION: Cirrhosis. Ascites. No acute findings. Chest CT 04/01/16 00:00 IMPRESSION: 1. Cardiomegaly. Right pleural effusion. 2. Cirrhosis. Mild ascites. Assessment & Plan - Diagnosis (1) Anasarca Is this a current diagnosis for this admission?: Yes (2) Chronic atrial fibrillation Is this a current diagnosis for this admission?: Yes (3) Congestive heart failure Qualifiers: Congestive heart failure type: unspecified congestive heart failure type Is this a current diagnosis for this admission?: Yes (4) Hyperlipidemia Qualifiers: Hyperlipidemia type: unspecified Qualified Code(s): E78.5 - Hyperlipidemia, unspecified Is this a current diagnosis for this admission?: Yes (5) Hypertension Qualifiers: Hypertension type: essential hypertension Qualified Code(s): I10 - Essential (primary) hypertension Is this a current diagnosis for this admission?: Yes (6) Morbid obesity Qualifiers: Obesity type: unspecified obesity type Qualified Code(s): E66.01 - Morbid (severe) obesity due to excess calories Is this a current diagnosis for this admission?: Yes (7) Shortness of breath Is this a current diagnosis for this admission?: Yes (8) Sleep-disordered breathing Is this a current diagnosis for this admission?: Yes - Notes Notes: Anasarca: Related to CHF, predominantly right-sided. Patient on IV Lasix. Have placed patient on by mouth torsemide 20 mg. Patient also placed on spironolactone. Chronic atrial fibrillation: Rate is well controlled. Continue chronic Coumadin therapy. Congestive heart failure: [place] to be predominantly right-sided. Patient tells me that his echocardiogram was quite some time ago. It may be worthwhile to consider a 2-D echo. Dyslipidemia: Currently stable. Continue statin therapy. Hypertension: Blood pressure well controlled. Morbid obesity: Patient will benefit from weight loss. Dyspnea: Related to CHF, obesity, deconditioning, probable underlying COPD. Sleep disordered breathing: Based on patient's symptoms, oropharyngeal exam, body habitus, comorbid diagnosis etc., there is high probability of underlying sleep apnea syndrome. Evaluation is recommended for sleep apnea as treatment of this condition if found is likely to benefit patient and reduce patient's future cardiovascular risk. CT scan results reviewed. Patient noted to have moderate right pleural effusion as well as cirrhosis and ascites. Patient was placed on spironolactone. Dose will be increased. - Time Time with patient: 15-25 minutes - CODE STATUS was discussed, patient remains full code. Surrogate decision-maker unchanged. Multiple medical problems were addressed.More than 50% of the time spent coordinating care, discussing management plans with involved caregivers. Management plans discussed with involved personnels. Medical decision making was of moderate complexity.
--- NOTE | 2016-04-02 14:12 | PDOC PROGRESS REPORT ---
Subjective Progress Note for:: 04/02/16 Physical Exam Vital Signs: Temp Pulse Resp BP Pulse Ox 98.0 F 97 19 112/62 93 04/02/16 12:03 04/02/16 12:03 04/02/16 12:03 04/02/16 12:03 04/02/16 12:03 Intake & Output 04/01/16 04/02/16 04/03/16 06:59 06:59 06:59 Intake Total 50 1811 Output Total 1400 2170 Balance -1350 -359 Weight 157.896 kg 158.6 kg Gentrourinary exam: PRESENT: other - scrotal raul Extremities exam: PRESENT: +2 edema Results Laboratory Results: 04/02/16 07:28 04/02/16 07:28 04/02/16 04/02/16 07:28 07:28 WBC 5.6 RBC 4.29 L Hgb 9.9 L Hct 32.4 L MCV 76 L MCH 23.1 L MCHC 30.6 L RDW 17.1 H Plt Count 178 Seg Neutrophils % 67.4 Lymphocytes % 15.2 Monocytes % 14.7 H Eosinophils % 2.4 Basophils % 0.3 Absolute Neutrophils 3.7 Absolute Lymphocytes 0.8 Absolute Monocytes 0.8 Absolute Eosinophils 0.1 Absolute Basophils 0.0 Sodium 140.4 Potassium 3.5 L Chloride 96 L Carbon Dioxide 32 H Anion Gap 12 BUN 16 Creatinine 1.07 Est GFR ( Amer) > 60 Est GFR (Non-Af Amer) > 60 Glucose 111 H Calcium 9.0 03/31/16 03/31/16 03/31/16 18:10 18:10 18:10 Creatine Kinase 59 CK-MB (CK-2) 1.64 Troponin I 0.015 NT-Pro-B Natriuret Pep 2010 H Impressions: Abdomen/Pelvis CT 04/01/16 00:00 IMPRESSION: Cirrhosis. Ascites. No acute findings. Chest CT 04/01/16 00:00 IMPRESSION: 1. Cardiomegaly. Right pleural effusion. 2. Cirrhosis. Mild ascites. Assessment & Plan - Plan Summary Plan Summary: Scrotal edema No surgical issue FU with Urology
[2016-04-02] MEDS: MONTELUKAST SODIUM 10 MG TABLET PO SCH (21:45)
[2016-04-02] MEDS: DIPHENHYDRAMINE HCL 25 MG CAPSULE PO SCH (21:45)
[2016-04-02] MEDS: SIMVASTATIN 10 MG TABLET PO SCH (21:46)
[2016-04-02] MEDS: WARFARIN SODIUM 5 MG TABLET PO SCH (21:46)
[2016-04-02] MEDS ORDERED: WARFARIN SODIUM 7.5 MG TABLET PO SCH ×2 (22:00)
[2016-04-03] MEDS: NORMAL SALINE 250 ML with FUROSEMIDE 250 MG IV PRN ×2 (02:29)
[2016-04-03] MEDS: LANSOPRAZOLE 30 MG TAB.RAP.DR PO SCH (06:33)
[2016-04-03 06:49] LABS: ABSOLUTE EOSINOPHILS # (AUTO) 0.1 10^3/uL (0.0-0.6); ABSOLUTE LYMPHOCYTES (AUTO) 1.1 10^3/uL (0.5-4.7); ABSOLUTE MONOCYTES (AUTO) 0.9 10^3/uL (0.1-1.4); ABSOLUTE NEUT (AUTO) 3.1 10^3/uL (1.7-8.2); BASOPHILS % (AUTO) 0.3 % (0-2); EOSINOPHILS % (AUTO) 2.7 % (0-6); HEMATOCRIT 29.5 % (37.9-51.0); HGB HCT DIFFERENCE -2.5; LYMPHOCYTES % (AUTO) 21.3 % (13-45); MEAN CORPUSCULAR HEMOGLOBIN 22.9 pg (27.0-33.4); MEAN CORPUSCULAR HGB CONC 30.6 g/dL (32.0-36.0); MEAN CORPUSCULAR VOLUME 75 fl (80-97); MONOCYTES % (AUTO) 16.9 % (3-13); RED BLOOD COUNT 3.93 10^6/uL (4.35-5.55); RED CELL DISTRIBUTION WIDTH 17.1 % (11.5-14.0); SEGMENTED NEUTROPHILS % (AUTO) 58.8 % (42-78); WHITE BLOOD COUNT 5.2 10^3/uL (4.0-10.5)
[2016-04-03 06:56] LABS: PROTHROMBIN TIME 32.4 SEC (11.4-15.4)
[2016-04-03 07:20] LABS: ANION GAP 12 (5-19); BLOOD UREA NITROGEN 18 mg/dL (7-20); CALCIUM 8.6 mg/dL (8.4-10.2); CARBON DIOXIDE 33 mmol/L (22-30); CHLORIDE 94 mmol/L (98-107); GLUCOSE 114 mg/dL (75-110); POTASSIUM 3.8 mmol/L (3.6-5.0); SODIUM 138.7 mmol/L (137-145)
[2016-04-03] MEDS: CEFEPIME 1 GM/D5W RTU 50 ML IV SCH ×2 (09:44→22:17)
[2016-04-03] MEDS: ASPIRIN 81 MG TABLET, ENT COATED PO SCH (09:44)
[2016-04-03] MEDS: TORSEMIDE 20 MG TABLET PO SCH (09:45)
[2016-04-03] MEDS: LOSARTAN POTASSIUM 50 MG TABLET PO SCH (09:46)
[2016-04-03] MEDS: SPIRONOLACTONE 25 MG TABLET PO SCH (09:46)
[2016-04-03] MEDS: METOPROLOL TARTRATE 50 MG TABLET PO SCH ×2 (09:46→22:13)
[2016-04-03] MEDS: MULTIVITAMIN TABLET PO SCH (09:47)
--- NOTE | 2016-04-03 18:03 | PDOC PROGRESS REPORT ---
Subjective Progress Note for:: 04/03/16 Subjective:: Patient is feeling better the leg swelling is much improved patient still have swelling in the scrotal and abdominal area. Patient's denied any chest pain without any shortness of the breath and patient is urinating very well without any problem Physical Exam Vital Signs: Temp Pulse Resp BP Pulse Ox 97.4 F 80 18 104/55 L 91 L 04/03/16 15:58 04/03/16 15:58 04/03/16 15:58 04/03/16 15:58 04/03/16 15:58 Intake & Output 04/02/16 04/03/16 04/04/16 06:59 06:59 06:59 Intake Total 1811 1369 Output Total 2170 Balance -359 1369 Weight 158.6 kg 159.3 kg General appearance: PRESENT: obese Eye exam: PRESENT: PERRLA Respiratory exam: PRESENT: decreased breath sounds Cardiovascular exam: PRESENT: +S1, +S2 GI/Abdominal exam: PRESENT: ascites, normal bowel sounds. ABSENT: tenderness Extremities exam: PRESENT: pedal edema Neurological exam: PRESENT: alert, awake, oriented to person, oriented to place , oriented to time, oriented to situation Psychiatric exam: PRESENT: normal mood Skin exam: PRESENT: normal color Results Laboratory Results: 04/03/16 06:12 04/03/16 06:12 03/31/16 04/03/16 04/03/16 18:10 06:12 06:12 WBC 5.2 RBC 3.93 L Hgb 9.0 L Hct 29.5 L MCV 75 L MCH 22.9 L MCHC 30.6 L RDW 17.1 H Plt Count 140 L Seg Neutrophils % 58.8 Lymphocytes % 21.3 Monocytes % 16.9 H Eosinophils % 2.7 Basophils % 0.3 Absolute Neutrophils 3.1 Absolute Lymphocytes 1.1 Absolute Monocytes 0.9 Absolute Eosinophils 0.1 Absolute Basophils 0.0 Sodium 138.7 Potassium 3.8 Chloride 94 L Carbon Dioxide 33 H Anion Gap 12 BUN 18 Creatinine 1.20 Est GFR ( Amer) > 60 Est GFR (Non-Af Amer) 59 L Glucose 114 H Calcium 8.6 Transferrin 324 03/31/16 03/31/16 03/31/16 18:10 18:10 18:10 Creatine Kinase 59 CK-MB (CK-2) 1.64 Troponin I 0.015 NT-Pro-B Natriuret Pep 2010 H Impressions: Abdomen/Pelvis CT 04/01/16 00:00 IMPRESSION: Cirrhosis. Ascites. No acute findings. Chest CT 04/01/16 00:00 IMPRESSION: 1. Cardiomegaly. Right pleural effusion. 2. Cirrhosis. Mild ascites. Assessment & Plan - Diagnosis (1) Anasarca Is this a current diagnosis for this admission?: YesPlan: Continues the Lasix drip (2) Congestive heart failure Qualifiers: Congestive heart failure type: unspecified congestive heart failure type Is this a current diagnosis for this admission?: YesPlan: Right-sided congestive heart failure continues IV Lasix drip (3) Chronic atrial fibrillation Is this a current diagnosis for this admission?: YesPlan: On chronic Coumadin (4) Hypertension Qualifiers: Hypertension type: essential hypertension Qualified Code(s): I10 - Essential (primary) hypertension Is this a current diagnosis for this admission?: YesPlan: Continuous current medication (5) Hyperlipidemia Qualifiers: Hyperlipidemia type: unspecified Qualified Code(s): E78.5 - Hyperlipidemia, unspecified Is this a current diagnosis for this admission?: YesPlan: Stable (6) Morbid obesity Qualifiers: Obesity type: unspecified obesity type Qualified Code(s): E66.01 - Morbid (severe) obesity due to excess calories Is this a current diagnosis for this admission?: YesPlan: Patient is probably need a sleep study (7) Shortness of breath Is this a current diagnosis for this admission?: YesPlan: Most likely from the congestive heart failure will do the CT of the chest without contrast pain patient's probably need a sleep study - Time Time Spent with patient: 15-24 minutes Medications reviewed and adjusted accordingly: Yes Anticipated discharge: Home Within: Other - Inpatient Certification Medical Necessity: Need Close Monitoring Due to Risk of Patient Decompensation, Need For Continuous Telemetry Monitoring 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
--- NOTE | 2016-04-03 19:39 | XCELERA REPORT ---
[address] [address] Transthoracic Echocardiogram Report Name: REJI LOUIS Age: 75 yrs Gender: Male : 1940 Patient Status: Inpatient Patient Location: 5\S\535\S\A Study Date: 04/03/2016 02:57 PM Height: 69 in Weight: 349 lb BSA: 2.6 m2 Procedure: A complete two-dimensional transthoracic echocardiogram was performed (2D, M-mode, spectral and color flow Doppler). The study was technically difficult with many images being suboptimal in quality. Reason For Study: CHF Ordering Physician: ABHI HARDWICK Performed By: Michelle Luong Interpretation Summary The study was technically difficult with many images being suboptimal in quality. Left ventricular systolic function is low normal. LV diastolic function could not be adequately assessed. There is borderline concentric left ventricular hypertrophy. The left ventricle is grossly normal size. Wall motion cannot be accurately commented on, but no definite regional wall motion abnormalities noted. The right ventricle is moderately dilated. The right ventricle appears to be hypertrophied The right ventricular systolic function is moderately reduced. The right atrium is mildly dilated. The left atrium is mildly dilated. There is a mild amount of mitral regurgitation There is no mitral valve stenosis. No aortic regurgitation is present. There is no aortic valve stenosis There is a mild amount of tricuspid regurgitation There is servere pulmonary hypertension by echo Right ventricular systolic pressure is estimated to be elevated at >60mmHg. There is no pericardial effusion. MMode/2D Measurements \T\ Calculations RVDd: 4.5 cm LVIDd: 5.9 cm FS: 27.4 % Ao root diam: 3.2 cm IVSd: 1.0 cm LVIDs: 4.3 cm EDV(Teich): 174.9 ml LVPWd: 1.0 cm ESV(Teich): 83.0 ml Ao root area: 7.9 cm2 EF(Teich): 52.5 % LA dimension: 6.1 cm Doppler Measurements \T\ Calculations MV E max marycruz: MV P1/2t max marycruz: Ao V2 max: LV V1 max P.8 cm/sec 95.8 cm/sec 113.3 cm/sec 1.8 mmHg MV A max marycruz: MV P1/2t: 65.3 msec Ao max PG: LV V1 max: 33.6 cm/sec 5.1 mmHg 67.1 cm/sec MV E/A: 2.9 MVA(P1/2t): 3.4 cm2 MV dec slope: 429.6 cm/sec2 MV dec time: 0.24 sec PA V2 max: TR max mayrcruz: 75.5 cm/sec 362.4 cm/sec PA max PG: TR max P.5 mmHg 2.3 mmHg Left Ventricle The left ventricle is grossly normal size. There is borderline concentric left ventricular hypertrophy. Left ventricular systolic function is low normal. LV diastolic function could not be adequately assessed. Wall motion cannot be accurately commented on, but no definite regional wall motion abnormalities noted. Right Ventricle The right ventricle is moderately dilated. The right ventricle appears to be hypertrophied. The right ventricular systolic function is moderately reduced. Atria The right atrium is mildly dilated. The left atrium is mildly dilated. Interarterial septum not well visualized and not well dopplered. Cannot comment on ASD/PFO presence. Mitral Valve There is mild mitral leaflet calcification. There is mild mitral annular calcification. There is no mitral valve stenosis. There is a mild amount of mitral regurgitation. Aortic Valve The aortic valve is not well visualized secondary to technical limitations. There is no aortic valve stenosis. No aortic regurgitation is present. Tricuspid Valve The tricuspid valve is not well visualized, but is grossly normal. There is no tricuspid stenosis. There is a mild amount of tricuspid regurgitation. There is servere pulmonary hypertension by echo. Right ventricular systolic pressure is estimated to be elevated at >60mmHg. Pulmonic Valve The pulmonic valve is not well visualized. Great Vessels The aortic root is not well visualized but is probably normal size. The inferior vena cava appeared normal and decreased < 50% with respiration (RAP 10-15 mmHg). Effusions There is no pericardial effusion. : ABHI HARDWICK > Abhi Hardwick
--- NOTE | 2016-04-03 20:46 | PDOC PROGRESS REPORT ---
Subjective Progress Note for:: 04/03/16 Subjective:: Patient seems to be doing better with gradual improvement. Pt is denying any chest arm or neck discomfort. Patient denying any PND, orthopnea. Patient denied any sustained palpitations, dizziness, syncope, near syncope. Patient denying any fever chills. Patient denying any other significant discomfort. Patient still has significant pedal edema and dyspnea but improved since yesterday. Pedal edema has significantly improved. Patient still have significant scrotal and lower abdominal edema. Patient is maintaining atrial fibrillation with controlled ventricular response. Patient denied any problems with urination. Review of systems: Rest review of systems negative. Medications: Medications have been reviewed. Physical Exam Vital Signs: Temp Pulse Resp BP Pulse Ox 97.4 F 80 18 104/55 L 91 L 04/03/16 15:58 04/03/16 15:58 04/03/16 15:58 04/03/16 15:58 04/03/16 15:58 Intake & Output 04/02/16 04/03/16 04/04/16 06:59 06:59 06:59 Intake Total 1811 1369 844 Output Total 2170 Balance -359 1369 844 Weight 158.6 kg 159.3 kg Exam: GENERAL: well-nourished and in no acute distress. Alert and oriented x3 HEAD: Atraumatic, normocephalic. EYES: Pupils equal round and reactive to light, extraocular movements intact, sclera anicteric, conjunctiva are normal. ENT: TMs normal, nares patent, oropharynx clear without exudates. Moist mucous membranes. No oral ulcerations or bleeding gums noted NECK: supple without lymphadenopathy. Trachea is central. No cervical or axillary lymphadenopathy noted. Carotids are 2+, JVD 10 CM LUNGS: Respiration seems nonlabored, no significant accessory muscle action noted. Breath sounds clear to auscultation bilaterally and equal noted. No wheezes rales or rhonchi noted. No significant dullness noted on percussion. CHEST: Palpation of the chest wall shows no significant chest wall tenderness. No other significant abnormalities noted. 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 ABDOMEN: Soft, no significant tenderness appreciated, normoactive bowel sounds. No guarding, no rebound. No rigidity noted . No masses appreciated. EXTREMITIES: Pedal pulses are 1-2+, no calf tenderness noted. No clubbing or cyanosis.2 + pedal edema noted, significant scrotal, penile and lower abdominal edema noted NEUROLOGICAL: Focused neurological exam showed no significant neurologic deficit. Normal speech, no focal weakness appreciated. PSYCH: Normal mood, normal affect. Judgment and insight within normal limits. SKIN: No significant ecchymosis, rash, ulcerations or signs of pruritus noted. MUSCULOSKELETAL EXAM: No significant joint swelling noted. Results Laboratory Results: 04/03/16 06:12 04/03/16 06:12 03/31/16 04/03/16 04/03/16 18:10 06:12 06:12 WBC 5.2 RBC 3.93 L Hgb 9.0 L Hct 29.5 L MCV 75 L MCH 22.9 L MCHC 30.6 L RDW 17.1 H Plt Count 140 L Seg Neutrophils % 58.8 Lymphocytes % 21.3 Monocytes % 16.9 H Eosinophils % 2.7 Basophils % 0.3 Absolute Neutrophils 3.1 Absolute Lymphocytes 1.1 Absolute Monocytes 0.9 Absolute Eosinophils 0.1 Absolute Basophils 0.0 Sodium 138.7 Potassium 3.8 Chloride 94 L Carbon Dioxide 33 H Anion Gap 12 BUN 18 Creatinine 1.20 Est GFR ( Amer) > 60 Est GFR (Non-Af Amer) 59 L Glucose 114 H Calcium 8.6 Transferrin 324 03/31/16 03/31/16 03/31/16 18:10 18:10 18:10 Creatine Kinase 59 CK-MB (CK-2) 1.64 Troponin I 0.015 NT-Pro-B Natriuret Pep 2010 H Impressions: Abdomen/Pelvis CT 04/01/16 00:00 IMPRESSION: Cirrhosis. Ascites. No acute findings. Chest CT 04/01/16 00:00 IMPRESSION: 1. Cardiomegaly. Right pleural effusion. 2. Cirrhosis. Mild ascites. Assessment & Plan - Diagnosis (1) Anasarca Is this a current diagnosis for this admission?: Yes (2) Chronic atrial fibrillation Is this a current diagnosis for this admission?: Yes (3) Congestive heart failure Qualifiers: Congestive heart failure type: unspecified congestive heart failure type Is this a current diagnosis for this admission?: Yes (4) Hyperlipidemia Qualifiers: Hyperlipidemia type: unspecified Qualified Code(s): E78.5 - Hyperlipidemia, unspecified Is this a current diagnosis for this admission?: Yes (5) Hypertension Qualifiers: Hypertension type: essential hypertension Qualified Code(s): I10 - Essential (primary) hypertension Is this a current diagnosis for this admission?: Yes (6) Morbid obesity Qualifiers: Obesity type: unspecified obesity type Qualified Code(s): E66.01 - Morbid (severe) obesity due to excess calories Is this a current diagnosis for this admission?: Yes (7) Shortness of breath Is this a current diagnosis for this admission?: Yes (8) Sleep-disordered breathing Is this a current diagnosis for this admission?: Yes - Notes Notes: Anasarca: Related to CHF, predominantly right-sided. Patient on IV Lasix. Have placed patient on by mouth torsemide 20 mg. Patient also placed on spironolactone. 2-D echo showed moderate RV systolic dysfunction and enlargement with significant pulmonary hypertension. Chronic atrial fibrillation: Rate is well controlled. Continue chronic Coumadin therapy. Congestive heart failure: [place] to be predominantly right-sided.2-D echo showed moderate RV systolic dysfunction and enlargement with significant pulmonary hypertension.. Dyslipidemia: Currently stable. Continue statin therapy. Hypertension: Blood pressure well controlled. Morbid obesity: Patient will benefit from weight loss. Dyspnea: Related to CHF, obesity, deconditioning, probable underlying COPD. Sleep disordered breathing: Based on patient's symptoms, oropharyngeal exam, body habitus, comorbid diagnosis etc., there is high probability of underlying sleep apnea syndrome. Evaluation is recommended for sleep apnea as treatment of this condition if found is likely to benefit patient and reduce patient's future cardiovascular risk. CT scan results reviewed. Patient noted to have moderate right pleural effusion as well as cirrhosis and ascites. Patient was placed on spironolactone. Dose will be increased. Case discussed with Dr. Lockwood. - Time Time with patient: 15-25 minutes - CODE STATUS was discussed, patient remains full code. Surrogate decision-maker unchanged. Multiple medical problems were addressed.More than 50% of the time spent coordinating care, discussing management plans with involved caregivers. Management plans discussed with involved personnels. Medical decision making was of moderate complexity.
[2016-04-03] MEDS: DIPHENHYDRAMINE HCL 25 MG CAPSULE PO SCH (22:17)
[2016-04-03] MEDS: SIMVASTATIN 10 MG TABLET PO SCH (22:17)
[2016-04-03] MEDS: WARFARIN SODIUM 5 MG TABLET PO SCH (22:17)
[2016-04-03] MEDS: MONTELUKAST SODIUM 10 MG TABLET PO SCH (22:17)
[2016-04-04] MEDS: NORMAL SALINE 250 ML with FUROSEMIDE 250 MG IV PRN ×2 (03:09)
[2016-04-04] MEDS: LANSOPRAZOLE 30 MG TAB.RAP.DR PO SCH (05:43)
[2016-04-04 07:34] LABS: PROTHROMBIN TIME 25.4 SEC (11.4-15.4)
[2016-04-04 08:19] LABS: ANION GAP 11 (5-19); BLOOD UREA NITROGEN 20 mg/dL (7-20); CALCIUM 8.6 mg/dL (8.4-10.2); CARBON DIOXIDE 36 mmol/L (22-30); CHLORIDE 92 mmol/L (98-107); CREATININE RESULT 1.03 mg/dL (0.52-1.25); GLUCOSE 116 mg/dL (75-110); POTASSIUM 3.4 mmol/L (3.6-5.0); SODIUM 139.3 mmol/L (137-145)
[2016-04-04] MEDS: METOPROLOL TARTRATE 50 MG TABLET PO SCH ×2 (10:28→21:50)
[2016-04-04] MEDS: ASPIRIN 81 MG TABLET, ENT COATED PO SCH (10:29)
[2016-04-04] MEDS: POTASSIUM CHLORIDE 10 MEQ TABLET.SA PO SCH (10:29)
[2016-04-04] MEDS: MULTIVITAMIN TABLET PO SCH (10:29)
[2016-04-04] MEDS: LOSARTAN POTASSIUM 50 MG TABLET PO SCH (10:30)
[2016-04-04] MEDS: SPIRONOLACTONE 25 MG TABLET PO SCH (10:30)
[2016-04-04] MEDS: TORSEMIDE 20 MG TABLET PO SCH ×2 (10:30→17:23)
[2016-04-04] MEDS: CEFEPIME 1 GM/D5W RTU 50 ML IV SCH ×2 (10:32→21:51)
[2016-04-04] MEDS: METOLAZONE 2.5 MG TABLET PO SCH (10:32)
--- NOTE | 2016-04-04 13:32 | PDOC PROGRESS REPORT ---
Subjective Progress Note for:: 04/04/16 Subjective:: Patient seems to be doing better with gradual improvement. Pt is denying any chest arm or neck discomfort. Patient denying any PND, orthopnea. Patient denied any sustained palpitations, dizziness, syncope, near syncope. Patient denying any fever chills. Patient denying any other significant discomfort. Patient still has significant pedal edema and dyspnea but improved since yesterday. Pedal edema has significantly improved. Patient still have significant but improving scrotal and lower abdominal edema. Patient is maintaining atrial fibrillation with controlled ventricular response. Patient denied any problems with urination. Review of systems: Rest review of systems negative. Medications: Medications have been reviewed. Physical Exam Vital Signs: Temp Pulse Resp BP Pulse Ox 98.4 F 86 18 110/84 98 04/04/16 08:03 04/04/16 12:03 04/04/16 12:03 04/04/16 12:03 04/04/16 12:03 Intake & Output 04/03/16 04/04/16 04/05/16 06:59 06:59 06:59 Intake Total 1369 1264 Balance 1369 1264 Weight 159.3 kg 159.1 kg Exam: GENERAL: well-nourished and in no acute distress. Alert and oriented x3 HEAD: Atraumatic, normocephalic. EYES: Pupils equal round and reactive to light, extraocular movements intact, sclera anicteric, conjunctiva are normal. ENT: TMs normal, nares patent, oropharynx clear without exudates. Moist mucous membranes. No oral ulcerations or bleeding gums noted NECK: supple without lymphadenopathy. Trachea is central. No cervical or axillary lymphadenopathy noted. Carotids are 2+, JVD 10 CM LUNGS: Respiration seems nonlabored, no significant accessory muscle action noted. Breath sounds clear to auscultation bilaterally and equal noted. No wheezes rales or rhonchi noted. No significant dullness noted on percussion. CHEST: Palpation of the chest wall shows no significant chest wall tenderness. No other significant abnormalities noted. HEART: [place] [employer], No PSH, 1/6 VINCE aortic area, 1/6 dailey systolic murmur mitral area, no rubs, no gallops. ABDOMEN: Soft, no significant tenderness appreciated, normoactive bowel sounds. No guarding, no rebound. No rigidity noted . No masses appreciated. EXTREMITIES: Pedal pulses are 1-2+, no calf tenderness noted. No clubbing or cyanosis.1-2+ pedal edema noted, still has significant but improving scrotal edema and penile edema. NEUROLOGICAL: Focused neurological exam showed no significant neurologic deficit. Normal speech, no focal weakness appreciated. PSYCH: Normal mood, normal affect. Judgment and insight within normal limits. SKIN: No significant ecchymosis, rash, ulcerations or signs of pruritus noted. MUSCULOSKELETAL EXAM: No significant joint swelling noted. Results Laboratory Results: 04/03/16 06:12 04/04/16 06:39 04/04/16 06:39 Sodium 139.3 Potassium 3.4 L Chloride 92 L Carbon Dioxide 36 H Anion Gap 11 BUN 20 Creatinine 1.03 Est GFR ( Amer) > 60 Est GFR (Non-Af Amer) > 60 Glucose 116 H Calcium 8.6 03/31/16 03/31/16 03/31/16 18:10 18:10 18:10 Creatine Kinase 59 CK-MB (CK-2) 1.64 Troponin I 0.015 NT-Pro-B Natriuret Pep 2010 H Impressions: Abdomen/Pelvis CT 04/01/16 00:00 IMPRESSION: Cirrhosis. Ascites. No acute findings. Chest CT 04/01/16 00:00 IMPRESSION: 1. Cardiomegaly. Right pleural effusion. 2. Cirrhosis. Mild ascites. Assessment & Plan - Diagnosis (1) Anasarca Is this a current diagnosis for this admission?: Yes (2) Chronic atrial fibrillation Is this a current diagnosis for this admission?: Yes (3) Congestive heart failure Qualifiers: Congestive heart failure type: unspecified congestive heart failure type Is this a current diagnosis for this admission?: Yes (4) Hyperlipidemia Qualifiers: Hyperlipidemia type: unspecified Qualified Code(s): E78.5 - Hyperlipidemia, unspecified Is this a current diagnosis for this admission?: Yes (5) Hypertension Qualifiers: Hypertension type: essential hypertension Qualified Code(s): I10 - Essential (primary) hypertension Is this a current diagnosis for this admission?: Yes (6) Morbid obesity Qualifiers: Obesity type: unspecified obesity type Qualified Code(s): E66.01 - Morbid (severe) obesity due to excess calories Is this a current diagnosis for this admission?: Yes (7) Shortness of breath Is this a current diagnosis for this admission?: Yes (8) Sleep-disordered breathing Is this a current diagnosis for this admission?: Yes - Notes Notes: Anasarca: Related to CHF, predominantly right-sided. Discontinued IV Lasix, place patient on Zaroxolyn. Continue patient on by mouth torsemide 20 mg. Patient also placed on spironolactone. 2-D echo showed moderate RV systolic dysfunction and enlargement with significant pulmonary hypertension. Chronic atrial fibrillation: Rate is well controlled. Continue chronic Coumadin therapy. Congestive heart failure: [place] to be predominantly right-sided.2-D echo showed moderate RV systolic dysfunction and enlargement with significant pulmonary hypertension.. Dyslipidemia: Currently stable. Continue statin therapy. Hypertension: Blood pressure well controlled. Morbid obesity: Patient will benefit from weight loss. Dyspnea: Related to CHF, obesity, deconditioning, probable underlying COPD. Sleep disordered breathing: Based on patient's symptoms, oropharyngeal exam, body habitus, comorbid diagnosis etc., there is high probability of underlying sleep apnea syndrome. Evaluation is recommended for sleep apnea as treatment of this condition if found is likely to benefit patient and reduce patient's future cardiovascular risk. Case discussed with Dr. Lockwood. - Time Time with patient: 15-25 minutes - CODE STATUS was discussed, patient remains full code. Surrogate decision-maker unchanged. Multiple medical problems were addressed.More than 50% of the time spent coordinating care, discussing management plans with involved caregivers. Management plans discussed with involved personnels. Medical decision making was of moderate complexity.
--- NOTE | 2016-04-04 14:11 | PDOC PROGRESS REPORT ---
Subjective Progress Note for:: 04/04/16 Subjective:: Patient is feeling much better denied any chest pain denied any shortness of the breath patient swelling is also improved. Physical Exam Vital Signs: Temp Pulse Resp BP Pulse Ox 98.4 F 86 18 110/84 98 04/04/16 08:03 04/04/16 12:03 04/04/16 12:03 04/04/16 12:03 04/04/16 12:03 Intake & Output 04/03/16 04/04/16 04/05/16 06:59 06:59 06:59 Intake Total 1369 1264 Balance 1369 1264 Weight 159.3 kg 159.1 kg General appearance: PRESENT: no acute distress, obese, well-developed, well- nourished Head exam: PRESENT: atraumatic, normocephalic Eye exam: PRESENT: conjunctiva pink, EOMI, PERRLA. ABSENT: scleral icterus Ear exam: PRESENT: normal external ear exam Mouth exam: PRESENT: moist, tongue midline Neck exam: PRESENT: full ROM. ABSENT: carotid bruit, JVD, lymphadenopathy, thyromegaly Respiratory exam: PRESENT: decreased breath sounds Cardiovascular exam: PRESENT: RRR. ABSENT: diastolic murmur, rubs, systolic murmur Pulses: PRESENT: normal dorsalis pedis pul, +2 pedal pulses bilateral Vascular exam: PRESENT: normal capillary refill GI/Abdominal exam: PRESENT: normal bowel sounds, soft. ABSENT: distended, guarding, mass, organolmegaly, rebound, tenderness Rectal exam: PRESENT: deferred Extremities exam: PRESENT: pedal edema Neurological exam: PRESENT: alert, awake, oriented to person, oriented to place , oriented to time, oriented to situation, CN II-XII grossly intact. ABSENT: motor sensory deficit Psychiatric exam: PRESENT: appropriate affect, normal mood. ABSENT: homicidal ideation, suicidal ideation Skin exam: PRESENT: dry, intact, warm. ABSENT: cyanosis, rash Results Laboratory Results: 04/03/16 06:12 04/04/16 06:39 04/04/16 06:39 Sodium 139.3 Potassium 3.4 L Chloride 92 L Carbon Dioxide 36 H Anion Gap 11 BUN 20 Creatinine 1.03 Est GFR ( Amer) > 60 Est GFR (Non-Af Amer) > 60 Glucose 116 H Calcium 8.6 0203/31/16 03/31/16 18:10 18:10 18:10 Creatine Kinase 59 CK-MB (CK-2) 1.64 Troponin I 0.015 NT-Pro-B Natriuret Pep 2010 H Impressions: Abdomen/Pelvis CT 04/01/16 00:00 IMPRESSION: Cirrhosis. Ascites. No acute findings. Chest CT 04/01/16 00:00 IMPRESSION: 1. Cardiomegaly. Right pleural effusion. 2. Cirrhosis. Mild ascites. Assessment & Plan - Diagnosis (1) Anasarca Is this a current diagnosis for this admission?: YesPlan: As per discussed with the cardiology DC the Lasix drips and start the patient on the Demadex and Zaroxolyn p.o. and fluid restrictions (2) Congestive heart failure Qualifiers: Congestive heart failure type: unspecified congestive heart failure type Is this a current diagnosis for this admission?: YesPlan: Right-sided congestive heart failure continues IV Lasix drip (3) Chronic atrial fibrillation Is this a current diagnosis for this admission?: YesPlan: On chronic Coumadin (4) Hypertension Qualifiers: Hypertension type: essential hypertension Qualified Code(s): I10 - Essential (primary) hypertension Is this a current diagnosis for this admission?: YesPlan: Continuous current medication (5) Hyperlipidemia Qualifiers: Hyperlipidemia type: unspecified Qualified Code(s): E78.5 - Hyperlipidemia, unspecified Is this a current diagnosis for this admission?: YesPlan: Stable (6) Morbid obesity Qualifiers: Obesity type: unspecified obesity type Qualified Code(s): E66.01 - Morbid (severe) obesity due to excess calories Is this a current diagnosis for this admission?: YesPlan: Patient is probably need a sleep study (7) Shortness of breath Is this a current diagnosis for this admission?: Yes - Time Time Spent with patient: 15-24 minutes Medications reviewed and adjusted accordingly: Yes Anticipated discharge: Other - Inpatient Certification Medical Necessity: Need Close Monitoring Due to Risk of Patient Decompensation Post Hospital Care: D/C Physician Office Specialist Documentation - Plan Summary Plan Summary: Will DC the IV Lasix drips and start the p.o. medication and continues to monitor the patient
[2016-04-04] MEDS ORDERED: POTASSIUM CHLORIDE 10 MEQ TABLET.SA PO ONE (15:30)
[2016-04-04] MEDS: MONTELUKAST SODIUM 10 MG TABLET PO SCH (21:50)
[2016-04-04] MEDS: DIPHENHYDRAMINE HCL 25 MG CAPSULE PO SCH (21:50)
[2016-04-04] MEDS: SIMVASTATIN 10 MG TABLET PO SCH (21:50)
[2016-04-04] MEDS ORDERED: WARFARIN SODIUM 5 MG TABLET PO SCH (22:00)
[2016-04-05 05:16] LABS: HEMATOCRIT 29.2 % (37.9-51.0); MEAN CORPUSCULAR HEMOGLOBIN 23.1 pg (27.0-33.4); MEAN CORPUSCULAR VOLUME 74 fl (80-97); RED BLOOD COUNT 3.92 10^6/uL (4.35-5.55); RED CELL DISTRIBUTION WIDTH 16.9 % (11.5-14.0); WHITE BLOOD COUNT 4.3 10^3/uL (4.0-10.5)
[2016-04-05 05:30] LABS: ANION GAP 14 (5-19); BLOOD UREA NITROGEN 23 mg/dL (7-20); CALCIUM 9.1 mg/dL (8.4-10.2); CARBON DIOXIDE 36 mmol/L (22-30); CHLORIDE 89 mmol/L (98-107); CREATININE RESULT 1.21 mg/dL (0.52-1.25); GLUCOSE 118 mg/dL (75-110); POTASSIUM 3.5 mmol/L (3.6-5.0); SODIUM 138.9 mmol/L (137-145)
[2016-04-05 05:55] LABS: HGB HCT DIFFERENCE -2.2
[2016-04-05 05:59] LABS: BASOPHILS % (MANUAL) 0 % (0-2); EOSINOPHILS % (MANUAL) 3 % (0-6); LYMPHOCYTES % (MANUAL) 26 % (13-45); TOTAL CELLS COUNTED 100
[2016-04-05 06:03] LABS: ANISOCYTOSIS 1+; HYPOCHROMASIA 1+; OVALOCYTES 1+; POIKILOCYTOSIS 1+; SCHISTOCYTES SLIGHT
[2016-04-05] MEDS: LANSOPRAZOLE 30 MG TAB.RAP.DR PO SCH (06:14)
--- NOTE | 2016-04-05 09:19 | PDOC PROGRESS REPORT ---
Subjective Progress Note for:: 04/05/16 Subjective:: pt is doing well pt denied any chest pain no sob swelling is much better Physical Exam Vital Signs: Temp Pulse Resp BP Pulse Ox 97.4 F 103 H 17 110/54 L 99 04/05/16 04:00 04/05/16 04:00 04/05/16 04:00 04/05/16 04:00 04/05/16 04:00 Intake & Output 04/04/16 04/05/16 04/06/16 06:59 06:59 06:59 Intake Total 1264 2794 Balance 1264 2794 Weight 159.1 kg 155.2 kg General appearance: PRESENT: no acute distress, well-developed, well-nourished Head exam: PRESENT: atraumatic, normocephalic Eye exam: PRESENT: conjunctiva pink, EOMI, PERRLA. ABSENT: scleral icterus Ear exam: PRESENT: normal external ear exam Mouth exam: PRESENT: moist, tongue midline Neck exam: PRESENT: full ROM. ABSENT: carotid bruit, JVD, lymphadenopathy, thyromegaly Respiratory exam: PRESENT: clear to auscultation keenan Cardiovascular exam: PRESENT: RRR. ABSENT: diastolic murmur, rubs, systolic murmur Pulses: PRESENT: normal dorsalis pedis pul, +2 pedal pulses bilateral Vascular exam: PRESENT: normal capillary refill GI/Abdominal exam: PRESENT: normal bowel sounds, soft. ABSENT: distended, guarding, mass, organolmegaly, rebound, tenderness Rectal exam: PRESENT: deferred Additional comments: scotral stable Extremities exam: PRESENT: pedal edema Neurological exam: PRESENT: alert, awake, oriented to person, oriented to place , oriented to time, oriented to situation, CN II-XII grossly intact. ABSENT: motor sensory deficit Psychiatric exam: PRESENT: appropriate affect, normal mood. ABSENT: homicidal ideation, suicidal ideation Skin exam: PRESENT: dry, intact, warm. ABSENT: cyanosis, rash Results Laboratory Results: 04/05/16 04:29 04/05/16 04:29 04/05/16 04/05/16 04:29 04:29 WBC 4.3 RBC 3.92 L Hgb 9.0 L Hct 29.2 L MCV 74 L MCH 23.1 L MCHC 31.0 L RDW 16.9 H Plt Count 144 L Seg Neutrophils % Not Reportable Lymphocytes % Not Reportable Monocytes % Not Reportable Eosinophils % Not Reportable Basophils % Not Reportable Absolute Neutrophils Not Reportable Absolute Lymphocytes Not Reportable Absolute Monocytes Not Reportable Absolute Eosinophils Not Reportable Absolute Basophils Not Reportable Sodium 138.9 Potassium 3.5 L Chloride 89 L Carbon Dioxide 36 H Anion Gap 14 BUN 23 H Creatinine 1.21 Est GFR ( Amer) > 60 Est GFR (Non-Af Amer) 59 L Glucose 118 H Calcium 9.1 03/31/16 03/31/16 03/31/16 18:10 18:10 18:10 Creatine Kinase 59 CK-MB (CK-2) 1.64 Troponin I 0.015 NT-Pro-B Natriuret Pep 2010 H 04/05/16 04:29 Creatine Kinase CK-MB (CK-2) Troponin I NT-Pro-B Natriuret Pep 1960 H Impressions: Abdomen/Pelvis CT 04/01/16 00:00 IMPRESSION: Cirrhosis. Ascites. No acute findings. Chest CT 04/01/16 00:00 IMPRESSION: 1. Cardiomegaly. Right pleural effusion. 2. Cirrhosis. Mild ascites. Assessment & Plan - Diagnosis (1) Anasarca Is this a current diagnosis for this admission?: YesPlan: As per discussed with the cardiology DC the Lasix drips and start the patient on the Demadex and Zaroxolyn p.o. and fluid restrictions (2) Congestive heart failure Qualifiers: Congestive heart failure type: unspecified congestive heart failure type Is this a current diagnosis for this admission?: YesPlan: Right-sided congestive heart failure continues IV Lasix drip (3) Chronic atrial fibrillation Is this a current diagnosis for this admission?: YesPlan: On chronic Coumadin (4) Hypertension Qualifiers: Hypertension type: essential hypertension Qualified Code(s): I10 - Essential (primary) hypertension Is this a current diagnosis for this admission?: YesPlan: Continuous current medication (5) Hyperlipidemia Qualifiers: Hyperlipidemia type: unspecified Qualified Code(s): E78.5 - Hyperlipidemia, unspecified Is this a current diagnosis for this admission?: YesPlan: Stable (6) Morbid obesity Qualifiers: Obesity type: unspecified obesity type Qualified Code(s): E66.01 - Morbid (severe) obesity due to excess calories Is this a current diagnosis for this admission?: YesPlan: Patient is probably need a sleep study (7) Shortness of breath Is this a current diagnosis for this admission?: YesPlan: Most likely from the congestive heart failure will do the CT of the chest without contrast pain patient's probably need a sleep study - Time Time Spent with patient: 15-24 minutes Medications reviewed and adjusted accordingly: Yes Anticipated discharge: Home - Inpatient Certification Medical Necessity: Need For Continuous Telemetry Monitoring Post Hospital Care: D/C [employer] Documentation - Plan Summary Plan Summary: cont curr med
[2016-04-05] MEDS: ASPIRIN 81 MG TABLET, ENT COATED PO SCH (11:10)
[2016-04-05] MEDS: CEFEPIME 1 GM/D5W RTU 50 ML IV SCH ×2 (11:11→22:00)
[2016-04-05] MEDS: MULTIVITAMIN TABLET PO SCH (11:11)
[2016-04-05] MEDS: TORSEMIDE 20 MG TABLET PO SCH ×2 (11:12→17:49)
[2016-04-05] MEDS: SPIRONOLACTONE 25 MG TABLET PO SCH (11:12)
[2016-04-05] MEDS: LOSARTAN POTASSIUM 50 MG TABLET PO SCH (11:13)
[2016-04-05] MEDS: METOPROLOL TARTRATE 50 MG TABLET PO SCH ×2 (11:13→22:01)
[2016-04-05] MEDS: METOLAZONE 2.5 MG TABLET PO SCH (17:48)
[2016-04-05] MEDS: SIMVASTATIN 10 MG TABLET PO SCH (21:59)
[2016-04-05] MEDS: DIPHENHYDRAMINE HCL 25 MG CAPSULE PO SCH (21:59)
[2016-04-05] MEDS: WARFARIN SODIUM 7.5 MG TABLET PO SCH (21:59)
[2016-04-05] MEDS: MONTELUKAST SODIUM 10 MG TABLET PO SCH (21:59)
[2016-04-06 06:09] LABS: BLOOD UREA NITROGEN 25 mg/dL (7-20); CALCIUM 9.3 mg/dL (8.4-10.2); CHLORIDE 82 mmol/L (98-107); CREATININE RESULT 1.05 mg/dL (0.52-1.25); GLUCOSE 109 mg/dL (75-110); POTASSIUM 3.1 mmol/L (3.6-5.0); SODIUM 136.8 mmol/L (137-145)
[2016-04-06 06:16] LABS: ANION GAP 15 (5-19)
[2016-04-06] MEDS: LANSOPRAZOLE 30 MG TAB.RAP.DR PO SCH (06:31)
[2016-04-06 06:51] LABS: CARBON DIOXIDE 40 mmol/L (22-30)
[2016-04-06] MEDS ORDERED: POTASSIUM CHLORIDE 10 MEQ TABLET.SA PO ONE (07:30)
[2016-04-06] MEDS ORDERED: POTASSIUM CHLORIDE 10 MEQ TABLET.SA PO SCH (10:00)
[2016-04-06] MEDS: TORSEMIDE 20 MG TABLET PO SCH ×2 (10:24→18:12)
[2016-04-06] MEDS: SPIRONOLACTONE 25 MG TABLET PO SCH (10:24)
[2016-04-06] MEDS: ASPIRIN 81 MG TABLET, ENT COATED PO SCH (10:25)
[2016-04-06] MEDS: MULTIVITAMIN TABLET PO SCH (10:25)
[2016-04-06] MEDS: LOSARTAN POTASSIUM 50 MG TABLET PO SCH (10:25)
[2016-04-06] MEDS: METOPROLOL TARTRATE 50 MG TABLET PO SCH ×2 (10:26→21:48)
[2016-04-06] MEDS: CEFEPIME 1 GM/D5W RTU 50 ML IV SCH ×2 (10:28→21:53)
[2016-04-06] MEDS: METOLAZONE 2.5 MG TABLET PO SCH ×2 (12:27→18:12)
--- NOTE | 2016-04-06 12:37 | PDOC PROGRESS REPORT ---
Subjective Progress Note for:: 04/06/16 Subjective:: Patient is doing fairPatient's potassium is lowPatient is otherwise denied any chest pain no shortness of the breath. Patient also swelling is coming down. Physical Exam Vital Signs: Temp Pulse Resp BP Pulse Ox 98.1 F 114 H 17 131/68 H 97 04/06/16 08:03 04/06/16 08:03 04/06/16 08:03 04/06/16 08:03 04/06/16 08:03 Intake & Output 04/05/16 04/06/16 04/07/16 06:59 06:59 06:59 Intake Total 2794 1447 Balance 2794 1447 Weight 155.2 kg 157.5 kg General appearance: PRESENT: no acute distress, well-developed, well-nourished Head exam: PRESENT: atraumatic, normocephalic Eye exam: PRESENT: conjunctiva pink, EOMI, PERRLA. ABSENT: scleral icterus Ear exam: PRESENT: normal external ear exam Mouth exam: PRESENT: moist, tongue midline Neck exam: PRESENT: full ROM. ABSENT: carotid bruit, JVD, lymphadenopathy, thyromegaly Respiratory exam: PRESENT: decreased breath sounds Cardiovascular exam: PRESENT: RRR. ABSENT: diastolic murmur, rubs, systolic murmur Pulses: PRESENT: normal dorsalis pedis pul, +2 pedal pulses bilateral Vascular exam: PRESENT: normal capillary refill GI/Abdominal exam: PRESENT: normal bowel sounds, soft. ABSENT: distended, guarding, mass, organolmegaly, rebound, tenderness Rectal exam: PRESENT: deferred Extremities exam: PRESENT: pedal edema Additional comments: Scrotal edema is also coming down Neurological exam: PRESENT: alert, awake, oriented to person, oriented to place , oriented to time, oriented to situation, CN II-XII grossly intact. ABSENT: motor sensory deficit Psychiatric exam: PRESENT: appropriate affect, normal mood. ABSENT: homicidal ideation, suicidal ideation Skin exam: PRESENT: dry, intact, warm. ABSENT: cyanosis, rash Results Laboratory Results: 04/05/16 04:29 04/06/16 04:56 04/06/16 04:56 Sodium 136.8 L Potassium 3.1 L Chloride 82 L Carbon Dioxide 40 H* Anion Gap 15 BUN 25 H Creatinine 1.05 Est GFR ( Amer) > 60 Est GFR (Non-Af Amer) > 60 Glucose 109 Calcium 9.3 03/31/16 03/31/16 03/31/16 18:10 18:10 18:10 Creatine Kinase 59 CK-MB (CK-2) 1.64 Troponin I 0.015 NT-Pro-B Natriuret Pep 2010 H 04/05/16 04:29 Creatine Kinase CK-MB (CK-2) Troponin I NT-Pro-B Natriuret Pep 1960 H Impressions: Abdomen/Pelvis CT 04/01/16 00:00 IMPRESSION: Cirrhosis. Ascites. No acute findings. Chest CT 04/01/16 00:00 IMPRESSION: 1. Cardiomegaly. Right pleural effusion. 2. Cirrhosis. Mild ascites. Chest X-Ray 04/06/16 00:00 IMPRESSION: Cardiomegaly with pulmonary vascular congestion interstitial prominence likely representing underlying edema/ ingested heart failure. Bilateral small pleural effusions, similar to prior study. Retrocardiac opacity likely representing atelectasis, infiltrate and/or edema Assessment & Plan - Diagnosis (1) Anasarca Is this a current diagnosis for this admission?: YesPlan: As per discussed with the cardiology will increase the Spironolactone to the 100 and continues the torsemide and increase his Zaroxolyn 2.5 mg (2) Congestive heart failure Qualifiers: Congestive heart failure type: unspecified congestive heart failure type Is this a current diagnosis for this admission?: YesPlan: Continues the current medication as above (3) Chronic atrial fibrillation Is this a current diagnosis for this admission?: YesPlan: Check the PT/INR (4) Hypertension Qualifiers: Hypertension type: essential hypertension Qualified Code(s): I10 - Essential (primary) hypertension Is this a current diagnosis for this admission?: YesPlan: Continuous current medication (5) Hyperlipidemia Qualifiers: Hyperlipidemia type: unspecified Qualified Code(s): E78.5 - Hyperlipidemia, unspecified Is this a current diagnosis for this admission?: YesPlan: Stable (6) Morbid obesity Qualifiers: Obesity type: unspecified obesity type Qualified Code(s): E66.01 - Morbid (severe) obesity due to excess calories Is this a current diagnosis for this admission?: YesPlan: Patient is probably need a sleep study (7) Shortness of breath Is this a current diagnosis for this admission?: Yes (8) Hypokalemia Is this a current diagnosis for this admission?: YesPlan: Replace the potassium and check it again today - Time Medications reviewed and adjusted accordingly: Yes Anticipated discharge: Home Within: Other - Inpatient Certification Medical Necessity: Need Close Monitoring Due to Risk of Patient Decompensation 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
[2016-04-06] MEDS ORDERED: SPIRONOLACTONE 25 MG TABLET PO ONE (13:30)
[2016-04-06 16:40] LABS: HGB SOLUBILITY RESULT Negative (Negative)
[2016-04-06 16:54] LABS: BLOOD UREA NITROGEN 27 mg/dL (7-20); CALCIUM 9.4 mg/dL (8.4-10.2); CHLORIDE 80 mmol/L (98-107); CREATININE RESULT 1.19 mg/dL (0.52-1.25); GLUCOSE 141 mg/dL (75-110); MAGNESIUM 1.6 mg/dL (1.6-2.3); POTASSIUM 3.7 mmol/L (3.6-5.0); SODIUM 137.8 mmol/L (137-145)
[2016-04-06 17:09] LABS: ANION GAP 13 (5-19)
[2016-04-06 17:14] LABS: CARBON DIOXIDE 45 mmol/L (22-30)
[2016-04-06] MEDS: POTASSIUM CHLORIDE 10 MEQ TABLET.SA PO SCH (18:12)
[2016-04-06] MEDS: WARFARIN SODIUM 7.5 MG TABLET PO SCH (21:53)
[2016-04-06] MEDS: DIPHENHYDRAMINE HCL 25 MG CAPSULE PO SCH (21:53)
[2016-04-06] MEDS: SIMVASTATIN 10 MG TABLET PO SCH (21:53)
[2016-04-06] MEDS: MONTELUKAST SODIUM 10 MG TABLET PO SCH (21:53)
[2016-04-07] MEDS: LANSOPRAZOLE 30 MG TAB.RAP.DR PO SCH (06:21)
[2016-04-07 07:29] LABS: HEMATOCRIT 30.8 % (37.9-51.0); HEMOGLOBIN 9.5 g/dL (13.5-17.0); HGB HCT DIFFERENCE -2.3; MEAN CORPUSCULAR HEMOGLOBIN 22.8 pg (27.0-33.4); MEAN CORPUSCULAR HGB CONC 30.8 g/dL (32.0-36.0); MEAN CORPUSCULAR VOLUME 74 fl (80-97); RED BLOOD COUNT 4.16 10^6/uL (4.35-5.55)
[2016-04-07 07:33] LABS: PROTHROMBIN TIME 18.8 SEC (11.4-15.4)
[2016-04-07 07:39] LABS: ALANINE AMINOTRANSFERASE 34 U/L (21-72); ALKALINE PHOSPHATASE 62 U/L (38-126); ASPARTATE AMINO TRANSFERASE 33 U/L (17-59); BILIRUBIN,TOTAL 1.5 mg/dL (0.2-1.3); BLOOD UREA NITROGEN 29 mg/dL (7-20); CALCIUM 10.1 mg/dL (8.4-10.2); CHLORIDE 78 mmol/L (98-107); CREATININE RESULT 1.19 mg/dL (0.52-1.25); GLUCOSE 124 mg/dL (75-110); MAGNESIUM 1.5 mg/dL (1.6-2.3); POTASSIUM 3.3 mmol/L (3.6-5.0)
[2016-04-07 07:49] LABS: ANION GAP 9 (5-19)
[2016-04-07 07:52] LABS: CARBON DIOXIDE 52 mmol/L (22-30)
[2016-04-07 08:04] LABS: BASOPHILS % (MANUAL) 0 % (0-2); EOSINOPHILS % (MANUAL) 2 % (0-6); LYMPHOCYTES % (MANUAL) 18 % (13-45); TOTAL CELLS COUNTED 100
[2016-04-07 08:05] LABS: TOXIC GRANULATION SLIGHT
[2016-04-07 08:06] LABS: HYPOCHROMASIA 1+; MICROCYTOSIS 1+; OVALOCYTES 1+; POIKILOCYTOSIS 1+; POLYCHROMASIA 1+
--- NOTE | 2016-04-07 08:06 | PDOC PROGRESS REPORT ---
Subjective Progress Note for:: 04/07/16 Subjective:: Patient is feeling much better denied any chest pain denied any shortness of the breath. Patient still urinate well and patient's currently on the by mouth diuretics and the patient's swelling is also getting better. Patient's potassium was low this morning patient scheduled by mouth progressions daily Physical Exam Vital Signs: Temp Pulse Resp BP Pulse Ox 98.5 F 106 H 17 104/53 L 100 04/07/16 00:21 04/07/16 07:00 04/07/16 00:21 04/07/16 00:21 04/07/16 00:21 Intake & Output 04/06/16 04/07/16 04/08/16 06:59 06:59 06:59 Intake Total 1447 700 Balance 1447 700 Weight 157.5 kg 153.6 kg General appearance: PRESENT: no acute distress, well-developed, well-nourished Head exam: PRESENT: atraumatic, normocephalic Eye exam: PRESENT: conjunctiva pink, EOMI, PERRLA. ABSENT: scleral icterus Ear exam: PRESENT: normal external ear exam Mouth exam: PRESENT: moist, tongue midline Neck exam: PRESENT: full ROM. ABSENT: carotid bruit, JVD, lymphadenopathy, thyromegaly Respiratory exam: PRESENT: decreased breath sounds Cardiovascular exam: PRESENT: RRR. ABSENT: diastolic murmur, rubs, systolic murmur Pulses: PRESENT: normal dorsalis pedis pul, +2 pedal pulses bilateral Vascular exam: PRESENT: normal capillary refill GI/Abdominal exam: PRESENT: normal bowel sounds, soft. ABSENT: distended, guarding, mass, organolmegaly, rebound, tenderness Rectal exam: PRESENT: deferred Extremities exam: PRESENT: pedal edema Additional comments: Scrotal swelling is also reduce Neurological exam: PRESENT: alert, awake, oriented to person, oriented to place , oriented to time, oriented to situation, CN II-XII grossly intact. ABSENT: motor sensory deficit Psychiatric exam: PRESENT: appropriate affect, normal mood. ABSENT: homicidal ideation, suicidal ideation Skin exam: PRESENT: dry, intact, warm. ABSENT: cyanosis, rash Results Laboratory Results: 04/07/16 06:40 04/06/16 04/07/16 04/07/16 16:20 06:40 06:40 Seg Neutrophils % Not Reportable Lymphocytes % Not Reportable Monocytes % Not Reportable Eosinophils % Not Reportable Basophils % Not Reportable Absolute Neutrophils Not Reportable Absolute Lymphocytes Not Reportable Absolute Monocytes Not Reportable Absolute Eosinophils Not Reportable Absolute Basophils Not Reportable Sodium 137.8 139.0 Potassium 3.7 3.3 L Chloride 80 L 78 L Carbon Dioxide 45 H* 52 H* Anion Gap 13 9 BUN 27 H 29 H Creatinine 1.19 1.19 Est GFR ( Amer) > 60 > 60 Est GFR (Non-Af Amer) > 60 > 60 Glucose 141 H 124 H Calcium 9.4 10.1 Magnesium 1.6 1.5 L Total Bilirubin 1.5 H AST 33 ALT 34 Alkaline Phosphatase 62 Total Protein 7.0 Albumin 4.0 03/31/16 03/31/16 03/31/16 18:10 18:10 18:10 Creatine Kinase 59 CK-MB (CK-2) 1.64 Troponin I 0.015 NT-Pro-B Natriuret Pep 2010 H 04/05/16 04:29 Creatine Kinase CK-MB (CK-2) Troponin I NT-Pro-B Natriuret Pep 1960 H Impressions: Abdomen/Pelvis CT 04/01/16 00:00 IMPRESSION: Cirrhosis. Ascites. No acute findings. Chest CT 04/01/16 00:00 IMPRESSION: 1. Cardiomegaly. Right pleural effusion. 2. Cirrhosis. Mild ascites. Chest X-Ray 04/06/16 00:00 IMPRESSION: Cardiomegaly with pulmonary vascular congestion interstitial prominence likely representing underlying edema/ ingested heart failure. Bilateral small pleural effusions, similar to prior study. Retrocardiac opacity likely representing atelectasis, infiltrate and/or edema Assessment & Plan - Diagnosis (1) Anasarca Is this a current diagnosis for this admission?: YesPlan: Continues to by mouth Demadex and Zaroxolyn (2) Congestive heart failure Qualifiers: Congestive heart failure type: unspecified congestive heart failure type Is this a current diagnosis for this admission?: YesPlan: Continues the current medication as above (3) Chronic atrial fibrillation Is this a current diagnosis for this admission?: YesPlan: Check the PT/INR (4) Hypertension Qualifiers: Hypertension type: essential hypertension Qualified Code(s): I10 - Essential (primary) hypertension Is this a current diagnosis for this admission?: YesPlan: Continuous current medication (5) Hyperlipidemia Qualifiers: Hyperlipidemia type: unspecified Qualified Code(s): E78.5 - Hyperlipidemia, unspecified Is this a current diagnosis for this admission?: YesPlan: Stable (6) Morbid obesity Qualifiers: Obesity type: unspecified obesity type Qualified Code(s): E66.01 - Morbid (severe) obesity due to excess calories Is this a current diagnosis for this admission?: YesPlan: Patient is probably need a sleep study (7) Shortness of breath Is this a current diagnosis for this admission?: YesPlan: Most likely from the congestive heart failure will do the CT of the chest without contrast pain patient's probably need a sleep study (8) Hypokalemia Is this a current diagnosis for this admission?: YesPlan: Replace the potassium and check it again today - Time Time Spent with patient: 15-24 minutes Medications reviewed and adjusted accordingly: Yes Anticipated discharge: Home Within: Other - Inpatient Certification Medical Necessity: Significant Comorbidiites Make Outpatient Treatment Too Risky , Need Close Monitoring Due to Risk of Patient Decompensation 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
[2016-04-07] MEDS ORDERED: POTASSIUM CHLORIDE 10 MEQ TABLET.SA PO ONE (08:30)
[2016-04-07] MEDS: METOPROLOL TARTRATE 50 MG TABLET PO SCH ×2 (09:54→21:32)
[2016-04-07] MEDS: SPIRONOLACTONE 25 MG TABLET PO SCH (09:54)
[2016-04-07] MEDS: ASPIRIN 81 MG TABLET, ENT COATED PO SCH (09:54)
[2016-04-07] MEDS: POTASSIUM CHLORIDE 10 MEQ TABLET.SA PO SCH ×2 (09:54→19:22)
[2016-04-07] MEDS: MULTIVITAMIN TABLET PO SCH (09:54)
[2016-04-07] MEDS: LOSARTAN POTASSIUM 50 MG TABLET PO SCH (09:55)
[2016-04-07] MEDS: TORSEMIDE 20 MG TABLET PO SCH ×2 (09:55→19:22)
[2016-04-07] MEDS: METOLAZONE 2.5 MG TABLET PO SCH ×2 (09:57→19:21)
[2016-04-07] MEDS: DIPHENHYDRAMINE HCL 25 MG CAPSULE PO SCH (21:31)
[2016-04-07] MEDS: SIMVASTATIN 10 MG TABLET PO SCH (21:32)
[2016-04-07] MEDS: MONTELUKAST SODIUM 10 MG TABLET PO SCH (21:32)
[2016-04-07] MEDS: WARFARIN SODIUM 5 MG TABLET PO SCH (21:32)
[2016-04-08 04:35] LABS: BLOOD UREA NITROGEN 38 mg/dL (7-20); CHLORIDE 77 mmol/L (98-107); CREATININE RESULT 1.09 mg/dL (0.52-1.25); GLUCOSE 129 mg/dL (75-110); POTASSIUM 3.3 mmol/L (3.6-5.0); SODIUM 137.3 mmol/L (137-145)
[2016-04-08 04:58] LABS: ANION GAP 12 (5-19)
[2016-04-08 04:59] LABS: CARBON DIOXIDE 48 mmol/L (22-30)
[2016-04-08 05:52] LABS: PROTHROMBIN TIME 18.6 SEC (11.4-15.4)
[2016-04-08] MEDS: LANSOPRAZOLE 30 MG TAB.RAP.DR PO SCH (06:15)
[2016-04-08] MEDS: ASPIRIN 81 MG TABLET, ENT COATED PO SCH (09:15)
[2016-04-08] MEDS: SPIRONOLACTONE 25 MG TABLET PO SCH (09:15)
[2016-04-08] MEDS: TORSEMIDE 20 MG TABLET PO SCH ×2 (09:17→17:32)
[2016-04-08] MEDS: MULTIVITAMIN TABLET PO SCH (09:17)
[2016-04-08] MEDS: POTASSIUM CHLORIDE 10 MEQ TABLET.SA PO SCH ×2 (09:17→17:31)
[2016-04-08] MEDS: METOLAZONE 2.5 MG TABLET PO SCH ×2 (09:19→17:31)
[2016-04-08] MEDS: METOPROLOL TARTRATE 50 MG TABLET PO SCH ×2 (09:20→21:10)
[2016-04-08] MEDS: LOSARTAN POTASSIUM 50 MG TABLET PO SCH (09:20)
--- NOTE | 2016-04-08 17:23 | PDOC PROGRESS REPORT ---
Subjective Progress Note for:: 04/08/16 Subjective:: Patient was admitted because of anasarca due to CHF, he continues to improve on present treatment Physical Exam Vital Signs: Temp Pulse Resp BP Pulse Ox 97.3 F 92 18 113/54 L 99 04/08/16 11:36 04/08/16 11:36 04/08/16 11:36 04/08/16 11:36 04/08/16 11:36 Intake & Output 04/07/16 04/08/16 04/09/16 06:59 06:59 06:59 Intake Total 700 955 215 Balance 700 955 215 Weight 153.6 kg 153.6 kg General appearance: PRESENT: no acute distress Eye exam: PRESENT: PERRLA Respiratory exam: PRESENT: clear to auscultation keenan Cardiovascular exam: PRESENT: +S1, +S2 GI/Abdominal exam: PRESENT: soft Neurological exam: PRESENT: alert Results Laboratory Results: 04/07/16 06:40 04/08/16 04:05 04/08/16 04:05 Sodium 137.3 Potassium 3.3 L Chloride 77 L Carbon Dioxide 48 H* Anion Gap 12 BUN 38 H Creatinine 1.09 Est GFR ( Amer) > 60 Est GFR (Non-Af Amer) > 60 Glucose 129 H Calcium 10.0 03/31/16 03/31/16 03/31/16 18:10 18:10 18:10 Creatine Kinase 59 CK-MB (CK-2) 1.64 Troponin I 0.015 NT-Pro-B Natriuret Pep 2010 H 04/05/16 04:29 Creatine Kinase CK-MB (CK-2) Troponin I NT-Pro-B Natriuret Pep 1960 H Impressions: Abdomen/Pelvis CT 04/01/16 00:00 IMPRESSION: Cirrhosis. Ascites. No acute findings. Chest CT 04/01/16 00:00 IMPRESSION: 1. Cardiomegaly. Right pleural effusion. 2. Cirrhosis. Mild ascites. Chest X-Ray 04/08/16 07:00 IMPRESSION: Improving CHF. 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
[2016-04-08] MEDS: DIPHENHYDRAMINE HCL 25 MG CAPSULE PO SCH (21:10)
[2016-04-08] MEDS: MONTELUKAST SODIUM 10 MG TABLET PO SCH (21:10)
[2016-04-08] MEDS: SIMVASTATIN 10 MG TABLET PO SCH (21:10)
[2016-04-08] MEDS: WARFARIN SODIUM 5 MG TABLET PO SCH (21:10)
[2016-04-09 05:18] LABS: PROTHROMBIN TIME 18.5 SEC (11.4-15.4)
[2016-04-09 05:34] LABS: BLOOD UREA NITROGEN 42 mg/dL (7-20); CHLORIDE 75 mmol/L (98-107); CREATININE RESULT 1.21 mg/dL (0.52-1.25); GLUCOSE 126 mg/dL (75-110); POTASSIUM 3.4 mmol/L (3.6-5.0); SODIUM 138.4 mmol/L (137-145)
[2016-04-09] MEDS: LANSOPRAZOLE 30 MG TAB.RAP.DR PO SCH (05:41)
[2016-04-09 05:51] LABS: ANION GAP 13 (5-19)
[2016-04-09 05:59] LABS: CARBON DIOXIDE 50 mmol/L (22-30)
[2016-04-09] MEDS: METOLAZONE 2.5 MG TABLET PO SCH ×2 (10:11→17:22)
[2016-04-09] MEDS: METOPROLOL TARTRATE 50 MG TABLET PO SCH ×2 (10:11→22:29)
[2016-04-09] MEDS: TORSEMIDE 20 MG TABLET PO SCH ×2 (10:11→17:21)
[2016-04-09] MEDS: POTASSIUM CHLORIDE 10 MEQ TABLET.SA PO SCH ×2 (10:11→17:21)
[2016-04-09] MEDS: SPIRONOLACTONE 25 MG TABLET PO SCH (10:12)
[2016-04-09] MEDS: ASPIRIN 81 MG TABLET, ENT COATED PO SCH (10:12)
[2016-04-09] MEDS: LOSARTAN POTASSIUM 50 MG TABLET PO SCH (10:12)
[2016-04-09] MEDS: MULTIVITAMIN TABLET PO SCH (10:13)
--- NOTE | 2016-04-09 16:04 | PDOC PROGRESS REPORT ---
Subjective Progress Note for:: 04/09/16 Subjective:: Patient was seen by the bedside, still have extremity edema but improved, he was concerned about the metformin that was held, the Actos was also held. I explained to him that he probably would not take Actos anymore because of his CHF Physical Exam Vital Signs: Temp Pulse Resp BP Pulse Ox 97.6 F 84 20 101/55 L 99 04/09/16 11:51 04/09/16 14:00 04/09/16 11:51 04/09/16 11:51 04/09/16 11:51 Intake & Output 04/08/16 04/09/16 04/10/16 06:59 06:59 06:59 Intake Total 955 520 240 Balance 955 520 240 Weight 153.6 kg 153.6 kg General appearance: PRESENT: no acute distress, well-developed, well-nourished Head exam: PRESENT: atraumatic, normocephalic Eye exam: PRESENT: conjunctiva pink, EOMI, PERRLA. ABSENT: scleral icterus Ear exam: PRESENT: normal external ear exam Mouth exam: PRESENT: moist, tongue midline Neck exam: PRESENT: full ROM. ABSENT: carotid bruit, JVD, lymphadenopathy, thyromegaly Respiratory exam: PRESENT: clear to auscultation keenan Cardiovascular exam: PRESENT: RRR, +S1, +S2, other - edema Pulses: PRESENT: normal dorsalis pedis pul, +2 pedal pulses bilateral Vascular exam: PRESENT: normal capillary refill GI/Abdominal exam: PRESENT: normal bowel sounds, soft Rectal exam: PRESENT: deferred Neurological exam: PRESENT: alert, awake, oriented to person, oriented to place , oriented to time, oriented to situation, CN II-XII grossly intact. ABSENT: motor sensory deficit Psychiatric exam: PRESENT: appropriate affect, normal mood. ABSENT: homicidal ideation, suicidal ideation Skin exam: PRESENT: dry, intact, warm. ABSENT: cyanosis, rash Results Laboratory Results: 04/07/16 06:40 04/09/16 04:57 04/09/16 04:57 Sodium 138.4 Potassium 3.4 L Chloride 75 L Carbon Dioxide 50 H* Anion Gap 13 BUN 42 H Creatinine 1.21 Est GFR ( Amer) > 60 Est GFR (Non-Af Amer) 59 L Glucose 126 H Calcium 10.0 02/03/31/16 03/31/16 18:10 18:10 18:10 Creatine Kinase 59 CK-MB (CK-2) 1.64 Troponin I 0.015 NT-Pro-B Natriuret Pep 2010 H 04/05/16 04:29 Creatine Kinase CK-MB (CK-2) Troponin I NT-Pro-B Natriuret Pep 1960 H Impressions: Abdomen/Pelvis CT 04/01/16 00:00 IMPRESSION: Cirrhosis. Ascites. No acute findings. Chest CT 04/01/16 00:00 IMPRESSION: 1. Cardiomegaly. Right pleural effusion. 2. Cirrhosis. Mild ascites. Chest X-Ray 04/08/16 07:00 IMPRESSION: Improving CHF. 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 Is this a current diagnosis for this admission?: YesPlan: Continue treatment (2) Anasarca Is this a current diagnosis for this admission?: Yes (3) Chronic atrial fibrillation Is this a current diagnosis for this admission?: Yes (4) Congestive heart failure Qualifiers: Congestive heart failure type: unspecified congestive heart failure type Is this a current diagnosis for this admission?: Yes (5) Hyperlipidemia Qualifiers: Hyperlipidemia type: unspecified Qualified Code(s): E78.5 - Hyperlipidemia, unspecified Is this a current diagnosis for this admission?: Yes (6) Hypertension Qualifiers: Hypertension type: essential hypertension Qualified Code(s): I10 - Essential (primary) hypertension Is this a current diagnosis for this admission?: Yes (7) Hypokalemia Is this a current diagnosis for this admission?: Yes (8) Morbid obesity Qualifiers: Obesity type: unspecified obesity type Qualified Code(s): E66.01 - Morbid (severe) obesity due to excess calories Is this a current diagnosis for this admission?: Yes (9) Shortness of breath Is this a current diagnosis for this admission?: Yes (10) Sleep-disordered breathing Is this a current diagnosis for this admission?: Yes
[2016-04-09] MEDS ORDERED: METFORMIN HCL 500 MG TABLET PO SCH (18:00)
[2016-04-09] MEDS: WARFARIN SODIUM 5 MG TABLET PO SCH (22:28)
[2016-04-09] MEDS: DIPHENHYDRAMINE HCL 25 MG CAPSULE PO SCH (22:29)
[2016-04-09] MEDS: SIMVASTATIN 10 MG TABLET PO SCH (22:29)
[2016-04-09] MEDS: MONTELUKAST SODIUM 10 MG TABLET PO SCH (22:29)
[2016-04-10] MEDS: LANSOPRAZOLE 30 MG TAB.RAP.DR PO SCH (06:43)
[2016-04-10 06:59] LABS: BLOOD UREA NITROGEN 56 mg/dL (7-20); CALCIUM 10.2 mg/dL (8.4-10.2); CHLORIDE 77 mmol/L (98-107); CREATININE RESULT 1.38 mg/dL (0.52-1.25); GLUCOSE 134 mg/dL (75-110); POTASSIUM 3.6 mmol/L (3.6-5.0); SODIUM 138.8 mmol/L (137-145)
[2016-04-10 07:20] LABS: ANION GAP 15 (5-19)
[2016-04-10 07:25] LABS: CARBON DIOXIDE 47 mmol/L (22-30)
[2016-04-10] MEDS ORDERED: LOSARTAN POTASSIUM 50 MG TABLET PO SCH (08:10)
[2016-04-10] MEDS: ASPIRIN 81 MG TABLET, ENT COATED PO SCH (09:07)
[2016-04-10] MEDS: POTASSIUM CHLORIDE 10 MEQ TABLET.SA PO SCH ×2 (09:08→17:18)
[2016-04-10] MEDS: MULTIVITAMIN TABLET PO SCH (09:08)
[2016-04-10] MEDS: SPIRONOLACTONE 25 MG TABLET PO SCH (09:08)
[2016-04-10] MEDS: TORSEMIDE 20 MG TABLET PO SCH ×2 (09:08→17:18)
[2016-04-10] MEDS: METOLAZONE 2.5 MG TABLET PO SCH (09:09)
--- NOTE | 2016-04-10 09:17 | PDOC PROGRESS REPORT ---
Subjective Progress Note for:: 04/10/16 Subjective:: Patient is feeling much better patients pretty much all the scrotal swelling is resolved and the leg swelling is pretty much all improved. Patient's denied any chest pain no shortness of the breath. Patient's blood sugar is running in the lower end. Physical Exam Vital Signs: Temp Pulse Resp BP Pulse Ox 97.5 F 76 18 112/57 L 100 04/10/16 07:58 04/10/16 07:58 04/10/16 07:58 04/10/16 07:58 04/10/16 07:58 Intake & Output 04/09/16 04/10/16 04/11/16 06:59 06:59 06:59 Intake Total 520 545 Balance 520 545 Weight 153.6 kg 153.6 kg General appearance: PRESENT: no acute distress, well-developed, well-nourished Head exam: PRESENT: atraumatic, normocephalic Eye exam: PRESENT: conjunctiva pink, EOMI, PERRLA. ABSENT: scleral icterus Ear exam: PRESENT: normal external ear exam Mouth exam: PRESENT: moist, tongue midline Neck exam: PRESENT: full ROM. ABSENT: carotid bruit, JVD, lymphadenopathy, thyromegaly Respiratory exam: PRESENT: clear to auscultation keenan Cardiovascular exam: PRESENT: RRR. ABSENT: diastolic murmur, rubs, systolic murmur Pulses: PRESENT: normal dorsalis pedis pul, +2 pedal pulses bilateral Vascular exam: PRESENT: normal capillary refill GI/Abdominal exam: PRESENT: normal bowel sounds, soft. ABSENT: distended, guarding, mass, organolmegaly, rebound, tenderness Rectal exam: PRESENT: deferred Neurological exam: PRESENT: alert, awake, oriented to person, oriented to place , oriented to time, oriented to situation, CN II-XII grossly intact. ABSENT: motor sensory deficit Psychiatric exam: PRESENT: appropriate affect, normal mood. ABSENT: homicidal ideation, suicidal ideation Skin exam: PRESENT: dry, intact, warm. ABSENT: cyanosis, rash Results Laboratory Results: 04/07/16 06:40 04/10/16 06:23 04/10/16 06:23 Sodium 138.8 Potassium 3.6 Chloride 77 L Carbon Dioxide 47 H* Anion Gap 15 BUN 56 H Creatinine 1.38 H Est GFR ( Amer) > 60 Est GFR (Non-Af Amer) 51 L Glucose 134 H Calcium 10.2 03/31/16 03/31/16 03/31/16 18:10 18:10 18:10 Creatine Kinase 59 CK-MB (CK-2) 1.64 Troponin I 0.015 NT-Pro-B Natriuret Pep 2010 H 04/05/16 04:29 Creatine Kinase CK-MB (CK-2) Troponin I NT-Pro-B Natriuret Pep 1960 H Impressions: Abdomen/Pelvis CT 04/01/16 00:00 IMPRESSION: Cirrhosis. Ascites. No acute findings. Chest CT 04/01/16 00:00 IMPRESSION: 1. Cardiomegaly. Right pleural effusion. 2. Cirrhosis. Mild ascites. Chest X-Ray 04/08/16 07:00 IMPRESSION: Improving CHF. Assessment & Plan - Diagnosis (1) Anasarca Is this a current diagnosis for this admission?: YesPlan: All resolving (2) Congestive heart failure Qualifiers: Congestive heart failure type: unspecified congestive heart failure type Is this a current diagnosis for this admission?: YesPlan: Continues to p.o. Demadex and Spironolactone (3) Chronic atrial fibrillation Is this a current diagnosis for this admission?: YesPlan: Continues on Coumadin (4) Hypertension Qualifiers: Hypertension type: essential hypertension Qualified Code(s): I10 - Essential (primary) hypertension Is this a current diagnosis for this admission?: YesPlan: Running low will cut down the metoprolol and losartan dose (5) Hyperlipidemia Qualifiers: Hyperlipidemia type: unspecified Qualified Code(s): E78.5 - Hyperlipidemia, unspecified Is this a current diagnosis for this admission?: YesPlan: Stable (6) Morbid obesity Qualifiers: Obesity type: unspecified obesity type Qualified Code(s): E66.01 - Morbid (severe) obesity due to excess calories Is this a current diagnosis for this admission?: YesPlan: Patient is probably need a sleep study (7) Shortness of breath Is this a current diagnosis for this admission?: YesPlan: Patient still needed oxygen 70 go home and need a sleep study (8) Hypokalemia Is this a current diagnosis for this admission?: YesPlan: Continues to potassium supplement - Time Time Spent with patient: 15-24 minutes Medications reviewed and adjusted accordingly: Yes Anticipated discharge: Home Within: within 24 hours - Inpatient Certification Post Hospital Care: D/C Press Secretary Documentation - Plan Summary Plan Summary: We will get the repeat the chest x-rayAdjust the blood pressure medications
[2016-04-10] MEDS ORDERED: METOPROLOL TARTRATE 50 MG TABLET PO SCH (10:00)
[2016-04-10] MEDS ORDERED: LOSARTAN POTASSIUM 25 MG TABLET PO SCH (10:00)
[2016-04-10] MEDS: GLIPIZIDE XL 2.5 MG TAB.ER.24 PO SCH (15:31)
[2016-04-10] MEDS ORDERED: WARFARIN SODIUM 5 MG TABLET PO SCH (22:00)
[2016-04-10] MEDS: MONTELUKAST SODIUM 10 MG TABLET PO SCH (22:44)
[2016-04-10] MEDS: DIPHENHYDRAMINE HCL 25 MG CAPSULE PO SCH (22:44)
[2016-04-10] MEDS: SIMVASTATIN 10 MG TABLET PO SCH (22:44)
[2016-04-11] MEDS: LANSOPRAZOLE 30 MG TAB.RAP.DR PO SCH (05:50)
[2016-04-11 08:42] LABS: PROTHROMBIN TIME 18.4 SEC (11.4-15.4)
[2016-04-11 08:52] LABS: BLOOD UREA NITROGEN 62 mg/dL (7-20); CALCIUM 10.4 mg/dL (8.4-10.2); CHLORIDE 78 mmol/L (98-107); CREATININE RESULT 1.36 mg/dL (0.52-1.25); GLUCOSE 171 mg/dL (75-110); POTASSIUM 3.8 mmol/L (3.6-5.0); SODIUM 136.4 mmol/L (137-145)
[2016-04-11 09:02] LABS: ANION GAP 16 (5-19)
[2016-04-11 09:05] LABS: CARBON DIOXIDE 42 mmol/L (22-30)
[2016-04-11] MEDS: ASPIRIN 81 MG TABLET, ENT COATED PO SCH (09:45)
[2016-04-11] MEDS: MULTIVITAMIN TABLET PO SCH (09:46)
[2016-04-11] MEDS: POTASSIUM CHLORIDE 10 MEQ TABLET.SA PO SCH ×2 (09:46→18:49)
[2016-04-11] MEDS: GLIPIZIDE XL 2.5 MG TAB.ER.24 PO SCH ×2 (09:46→18:29)
[2016-04-11] MEDS: TORSEMIDE 20 MG TABLET PO SCH ×2 (09:46→18:49)
[2016-04-11] MEDS: METOPROLOL TARTRATE 25 MG TABLET PO SCH ×2 (12:20→22:21)
[2016-04-11] MEDS: SPIRONOLACTONE 25 MG TABLET PO SCH (12:20)
--- NOTE | 2016-04-11 13:49 | PDOC PROGRESS REPORT ---
Subjective Progress Note for:: 04/11/16 Subjective:: Patient is feeling much better patient's blood pressure is also stable. Patient 's denied any blood in the stools no black stools without any chest pain no short of breath. Patient was complaining of some loose stool this morning. Patient's otherwise very anxious to go home today and the patient is swelling is much better to Physical Exam Vital Signs: Temp Pulse Resp BP Pulse Ox 97.5 F 80 15 128/63 H 100 04/11/16 12:06 04/11/16 12:06 04/11/16 12:06 04/11/16 12:06 04/11/16 12:06 Intake & Output 04/10/16 04/11/16 04/12/16 06:59 06:59 06:59 Intake Total 545 1065 Balance 545 1065 Weight 153.6 kg 139.5 kg General appearance: PRESENT: no acute distress, well-developed, well-nourished Head exam: PRESENT: atraumatic, normocephalic Eye exam: PRESENT: conjunctiva pink, EOMI, PERRLA. ABSENT: scleral icterus Ear exam: PRESENT: normal external ear exam Mouth exam: PRESENT: moist, tongue midline Neck exam: PRESENT: full ROM. ABSENT: carotid bruit, JVD, lymphadenopathy, thyromegaly Respiratory exam: PRESENT: decreased breath sounds Cardiovascular exam: PRESENT: RRR. ABSENT: diastolic murmur, rubs, systolic murmur Pulses: PRESENT: normal dorsalis pedis pul, +2 pedal pulses bilateral Vascular exam: PRESENT: normal capillary refill GI/Abdominal exam: PRESENT: normal bowel sounds, soft. ABSENT: distended, guarding, mass, organolmegaly, rebound, tenderness Rectal exam: PRESENT: deferred Extremities exam: PRESENT: pedal edema Neurological exam: PRESENT: alert, awake, oriented to person, oriented to place , oriented to time, oriented to situation, CN II-XII grossly intact. ABSENT: motor sensory deficit Psychiatric exam: PRESENT: appropriate affect, normal mood. ABSENT: homicidal ideation, suicidal ideation Skin exam: PRESENT: dry, intact, warm. ABSENT: cyanosis, rash Results Laboratory Results: 04/07/16 06:40 04/11/16 08:28 04/11/16 08:28 Sodium 136.4 L Potassium 3.8 Chloride 78 L Carbon Dioxide 42 H* Anion Gap 16 BUN 62 H Creatinine 1.36 H Est GFR ( Amer) > 60 Est GFR (Non-Af Amer) 51 L Glucose 171 H Calcium 10.4 H 03/31/16 03/31/16 03/31/16 18:10 18:10 18:10 Creatine Kinase 59 CK-MB (CK-2) 1.64 Troponin I 0.015 NT-Pro-B Natriuret Pep 2010 H 04/05/16 04:29 Creatine Kinase CK-MB (CK-2) Troponin I NT-Pro-B Natriuret Pep 1960 H Impressions: Abdomen/Pelvis CT 04/01/16 00:00 IMPRESSION: Cirrhosis. Ascites. No acute findings. Chest CT 04/01/16 00:00 IMPRESSION: 1. Cardiomegaly. Right pleural effusion. 2. Cirrhosis. Mild ascites. Chest X-Ray 04/10/16 00:00 IMPRESSION: Improving CHF. Assessment & Plan - Diagnosis (1) Anasarca Is this a current diagnosis for this admission?: YesPlan: Currently on the Demadex 20 mg p.o. twice a day and Spironolactone and doing much better as per discussed with the cardiology Dr. Ingram and suggest to continue same medications and may be a cutdown once a day Demadex after patient is doing well in a week (2) Congestive heart failure Qualifiers: Congestive heart failure type: unspecified congestive heart failure type Is this a current diagnosis for this admission?: YesPlan: Continues the current medications (3) Chronic atrial fibrillation Is this a current diagnosis for this admission?: YesPlan: Discussed with the cardiology and the discussed about the Eliquis and is okay to start the Eliquis and stop the Coumadin. Discussed with the patient's very extensively about the Eliquis and potential side effect and no antidote and patient understand very well and patient is willing to try the Eliquis at this point. We also get the stool for guaiac study and continues to monitor the patient's (4) Hypertension Qualifiers: Hypertension type: essential hypertension Qualified Code(s): I10 - Essential (primary) hypertension Is this a current diagnosis for this admission?: YesPlan: We will start the low-dose of metoprolol and continues to hold the losartane (5) Hyperlipidemia Qualifiers: Hyperlipidemia type: unspecified Qualified Code(s): E78.5 - Hyperlipidemia, unspecified Is this a current diagnosis for this admission?: YesPlan: Stable (6) Morbid obesity Qualifiers: Obesity type: unspecified obesity type Qualified Code(s): E66.01 - Morbid (severe) obesity due to excess calories Is this a current diagnosis for this admission?: YesPlan: Patient is probably need a sleep study (7) Shortness of breath Is this a current diagnosis for this admission?: YesPlan: Patient still needed oxygen 70 go home and need a sleep study (8) Hypokalemia Is this a current diagnosis for this admission?: Yes - Time Time Spent with patient: 15-24 minutes Medications reviewed and adjusted accordingly: Yes Anticipated discharge: Home Within: within 24 hours - Inpatient Certification Medical Necessity: Need Close Monitoring Due to Risk of Patient Decompensation Post Hospital Care: D/C Celery Wrapper Documentation - Plan Summary Plan Summary: DC the Coumadin and start the Eliquis and continues to monitor another 24 hours and arrange the home oxygen and continues physical therapy.
[2016-04-11] MEDS: APIXABAN 5 MG TABLET PO SCH (18:49)
[2016-04-11] MEDS: DIPHENHYDRAMINE HCL 25 MG CAPSULE PO SCH (22:21)
[2016-04-11] MEDS: SIMVASTATIN 10 MG TABLET PO SCH (22:21)
[2016-04-11] MEDS: MONTELUKAST SODIUM 10 MG TABLET PO SCH (22:21)
[2016-04-12] MEDS: LANSOPRAZOLE 30 MG TAB.RAP.DR PO SCH (06:27)
[2016-04-12] MEDS: GLIPIZIDE XL 2.5 MG TAB.ER.24 PO SCH ×2 (07:39→16:51)
[2016-04-12 08:08] LABS: BLOOD UREA NITROGEN 68 mg/dL (7-20); CALCIUM 11.3 mg/dL (8.4-10.2); CHLORIDE 81 mmol/L (98-107); CREATININE RESULT 1.56 mg/dL (0.52-1.25); GLUCOSE 148 mg/dL (75-110); POTASSIUM 4.1 mmol/L (3.6-5.0); SODIUM 139.9 mmol/L (137-145)
[2016-04-12 08:22] LABS: ANION GAP 18 (5-19)
[2016-04-12 08:23] LABS: CARBON DIOXIDE 41 mmol/L (22-30)
[2016-04-12 09:20] LABS: ABSOLUTE EOSINOPHILS # (AUTO) 0.1 10^3/uL (0.0-0.6); ABSOLUTE LYMPHOCYTES (AUTO) 1.1 10^3/uL (0.5-4.7); ABSOLUTE MONOCYTES (AUTO) 1.1 10^3/uL (0.1-1.4); ABSOLUTE NEUT (AUTO) 3.3 10^3/uL (1.7-8.2); BASOPHILS % (AUTO) 0.7 % (0-2); EOSINOPHILS % (AUTO) 2.3 % (0-6); HEMATOCRIT 34.6 % (37.9-51.0); HEMOGLOBIN 10.7 g/dL (13.5-17.0); HGB HCT DIFFERENCE -2.5; LYMPHOCYTES % (AUTO) 18.9 % (13-45); MEAN CORPUSCULAR HEMOGLOBIN 23.1 pg (27.0-33.4); MEAN CORPUSCULAR VOLUME 75 fl (80-97); MONOCYTES % (AUTO) 19.3 % (3-13); RED BLOOD COUNT 4.64 10^6/uL (4.35-5.55); RED CELL DISTRIBUTION WIDTH 17.8 % (11.5-14.0); SEGMENTED NEUTROPHILS % (AUTO) 58.8 % (42-78); WHITE BLOOD COUNT 5.6 10^3/uL (4.0-10.5)
--- NOTE | 2016-04-12 09:26 | PDOC CONSULTATION ---
Consultation Consult Date: 04/12/16 Attending physician:: MARICEL MOYER Consult reason:: heme positive stools History of Present Illness Admission Date/PCP: 03/31/16 16:54 DAVID LE MD History of Present Illness: asked to see patient in consult patient had previous GI evaluation by Dr Purdy. not has heme positive stools patient is process of changing from Coumadin to Eliquis will need to have GI evaluation to rule out potential site of bleed. patient denies any melena there is no hematemesis denies any nausea or vomiting appetite is normal denies any blood in his stools he cannot remember what his previous findings showed Past Medical History Cardiac Medical History: Reports: Atrial Fibrillation, Congestive Heart Failure , Coronary Artery Disease, Hyperlipidema, Hypertension, Other - Moderate pulmonary hypertension Pulmonary Medical History: Reports: Chronic Obstructive Pulmonary Disease (COPD) Endocrine Medical History: Reports: Diabetes Mellitus Type 2 Psychiatric Medical History: Denies: Depression Social History Smoking Status: Never Smoker Frequency of Alcohol Use: None Hx Recreational Drug Use: No Hx Prescription Drug Abuse: No - Advance Directive Resuscitation Status: Full Code Family History Family History: Reviewed & Not Pertinent Parental Family History Reviewed: Yes Children Family History Reviewed: Unknown Sibling(s) Family History Reviewed.: Unknown Medication/Allergy Home Medications: Acetaminophen [Acetaminophen Extra Strength] 500 mg PO Q6HP PRN 03/31/16 Diphenhydramine HCl [Benadryl] 25 mg PO QHS 03/31/16 Furosemide [Lasix] 40 mg PO BID 03/31/16 Losartan Potassium 100 mg PO DAILY 03/31/16 Metformin HCl [Glucophage] 1,000 mg PO BID 03/31/16 Metoprolol Tartrate [Lopressor 50 mg Tablet] 50 mg PO Q12H 03/31/16 Montelukast Sodium [Singulair 10 mg Tablet] 10 mg PO QPM 03/31/16 Multivit-Minerals/Folic Acid [Centrum Multigummies] 80 mcg PO DAILY 03/31/16 Omeprazole 40 mg PO DAILY 03/31/16 Pioglitazone HCl [Actos] 45 mg PO DAILY 03/31/16 Potassium Chloride 1 tab PO Q2D 03/31/16 Simvastatin [Zocor 20 mg Tablet] 20 mg PO QPM 03/31/16 Warfarin Sodium [Coumadin 7.5 mg Tablet] 7.5 mg PO DAILY 03/31/16 Allergies/Adverse Reactions: No Known Allergies Allergy (Unverified 03/31/16 18:25) Review of Systems Constitutional: ABSENT: fever(s), headache(s), night sweats, weakness Eyes: ABSENT: visual disturbances Ears: ABSENT: hearing changes Nose, Mouth, and Throat: ABSENT: mouth pain, sore throat Cardiovascular: ABSENT: chest pain Respiratory: ABSENT: dyspnea, hemoptysis Gastrointestinal: ABSENT: diarrhea, dysphagia, hematochezia, melena, nausea, vomiting Genitourinary: ABSENT: dysuria, hematuria Musculoskeletal: ABSENT: deformity Integumentary: ABSENT: lesions, pruritus Neurological: ABSENT: focal weakness, syncope, tremor(s), vertigo Endocrine: ABSENT: polydipsia, polyphagia, polyuria Hematologic/Lymphatic: ABSENT: easy bruising Physical Exam Vital Signs: Temp Pulse Resp BP Pulse Ox 97.6 F 103 H 16 133/87 H 100 04/12/16 07:15 04/12/16 07:15 04/12/16 07:15 04/12/16 07:15 04/12/16 07:15 Intake & Output 04/11/16 04/12/16 04/13/16 06:59 06:59 06:59 Intake Total 1065 1055 Balance 1065 1055 Weight 139.5 kg 138 kg General appearance: PRESENT: no acute distress, well-developed, well-nourished Head exam: PRESENT: atraumatic, normocephalic Eye exam: PRESENT: EOMI, PERRLA. ABSENT: conjunctival injection, nystagmus, scleral icterus Mouth exam: PRESENT: moist, neck supple Throat exam: ABSENT: tonsillar exudate Neck exam: ABSENT: carotid bruit, meningismus, tenderness, thyromegaly Respiratory exam: PRESENT: symmetrical, unlabored. ABSENT: rales Cardiovascular exam: PRESENT: RRR, +S1, +S2. ABSENT: rubs GI/Abdominal exam: PRESENT: soft. ABSENT: Mccormack's sign, rebound, rigid, tenderness Rectal exam: PRESENT: heme (+) stool Extremities exam: ABSENT: joint swelling Musculoskeletal exam: PRESENT: full ROM Neurological exam: PRESENT: oriented to time, oriented to situation, reflexes normal, CN II-XII grossly intact Psychiatric exam: PRESENT: appropriate affect Skin exam: PRESENT: normal color. ABSENT: mottled, pallor, petechiae, urticaria , vesicles Results Laboratory Results: 04/12/16 07:38 04/11/16 04/12/16 20:50 07:38 Sodium 139.9 Potassium 4.1 Chloride 81 L Carbon Dioxide 41 H* Anion Gap 18 BUN 68 H Creatinine 1.56 H Est GFR ( Amer) 53 L Est GFR (Non-Af Amer) 44 L Glucose 148 H Calcium 11.3 H Stool Occult Blood POSITIVE 03/31/16 03/31/16 03/31/16 18:10 18:10 18:10 Creatine Kinase 59 CK-MB (CK-2) 1.64 Troponin I 0.015 NT-Pro-B Natriuret Pep 2010 H 04/05/16 04:29 Creatine Kinase CK-MB (CK-2) Troponin I NT-Pro-B Natriuret Pep 1960 H Impressions: Abdomen/Pelvis CT 04/01/16 00:00 IMPRESSION: Cirrhosis. Ascites. No acute findings. Chest CT 04/01/16 00:00 IMPRESSION: 1. Cardiomegaly. Right pleural effusion. 2. Cirrhosis. Mild ascites. Chest X-Ray 04/10/16 00:00 IMPRESSION: Improving CHF. Assessment & Plan - Diagnosis (1) Heme + stool Plan: plan is for transition back to anticoagulant therapy now having evidence of blood in his stool hemodynamically stable will need EGD and colonoscopy Risks, benefits and alternatives of the procedure are explained to the patient in detail further recommendations to follow will try to get previous records of colonoscopy done by Dr Purdy - Time Time Spent: 50 to 70 Minutes
[2016-04-12] MEDS: MULTIVITAMIN TABLET PO SCH (09:37)
[2016-04-12] MEDS: POTASSIUM CHLORIDE 10 MEQ TABLET.SA PO SCH (09:37)
[2016-04-12] MEDS: TORSEMIDE 20 MG TABLET PO SCH (09:37)
[2016-04-12] MEDS: METOPROLOL TARTRATE 25 MG TABLET PO SCH ×2 (09:37→23:05)
[2016-04-12] MEDS: ASPIRIN 81 MG TABLET, ENT COATED PO SCH (09:37)
[2016-04-12] MEDS: SPIRONOLACTONE 25 MG TABLET PO SCH (09:38)
[2016-04-12] MEDS: APIXABAN 5 MG TABLET PO SCH (09:41)
--- NOTE | 2016-04-12 13:05 | PDOC PROGRESS REPORT ---
Subjective Progress Note for:: 04/12/16 Subjective:: Patient is doing fair patient's swelling is much better and patient's BUN and creatinine is slightly rising. Patient's hemoglobin is 10 but patient's stool guaiac is positive and consult Dr. Cyr's before the discharge the patient's to further evaluate about this any GI bleed issues. Patient was also switched from Coumadin to the Eliquis Physical Exam Vital Signs: Temp Pulse Resp BP Pulse Ox 97.2 F 77 20 118/51 L 97 04/12/16 11:40 04/12/16 11:40 04/12/16 11:40 04/12/16 11:40 04/12/16 11:40 Intake & Output 04/11/16 04/12/16 04/13/16 06:59 06:59 06:59 Intake Total 1065 1055 Balance 1065 1055 Weight 139.5 kg 138 kg General appearance: PRESENT: no acute distress, well-developed, well-nourished Head exam: PRESENT: atraumatic, normocephalic Eye exam: PRESENT: conjunctiva pink, EOMI, PERRLA. ABSENT: scleral icterus Ear exam: PRESENT: normal external ear exam Mouth exam: PRESENT: moist, tongue midline Neck exam: PRESENT: full ROM. ABSENT: carotid bruit, JVD, lymphadenopathy, thyromegaly Cardiovascular exam: PRESENT: RRR. ABSENT: diastolic murmur, rubs, systolic murmur Pulses: PRESENT: normal dorsalis pedis pul, +2 pedal pulses bilateral Vascular exam: PRESENT: normal capillary refill GI/Abdominal exam: PRESENT: normal bowel sounds, soft. ABSENT: distended, guarding, mass, organolmegaly, rebound, tenderness Rectal exam: PRESENT: deferred Extremities exam: PRESENT: pedal edema Neurological exam: PRESENT: alert, awake, oriented to person, oriented to place , oriented to time, oriented to situation, CN II-XII grossly intact. ABSENT: motor sensory deficit Psychiatric exam: PRESENT: appropriate affect, normal mood. ABSENT: homicidal ideation, suicidal ideation Skin exam: PRESENT: dry, intact, warm. ABSENT: cyanosis, rash Results Laboratory Results: 04/12/16 09:05 04/12/16 07:38 04/11/16 04/12/16 04/12/16 20:50 07:38 09:05 WBC 5.6 RBC 4.64 Hgb 10.7 L Hct 34.6 L MCV 75 L MCH 23.1 L MCHC 31.0 L RDW 17.8 H Plt Count 148 L Seg Neutrophils % 58.8 Lymphocytes % 18.9 Monocytes % 19.3 H Eosinophils % 2.3 Basophils % 0.7 Absolute Neutrophils 3.3 Absolute Lymphocytes 1.1 Absolute Monocytes 1.1 Absolute Eosinophils 0.1 Absolute Basophils 0.0 Sodium 139.9 Potassium 4.1 Chloride 81 L Carbon Dioxide 41 H* Anion Gap 18 BUN 68 H Creatinine 1.56 H Est GFR ( Amer) 53 L Est GFR (Non-Af Amer) 44 L Glucose 148 H Calcium 11.3 H Stool Occult Blood POSITIVE 03/31/16 03/31/16 03/31/16 18:10 18:10 18:10 Creatine Kinase 59 CK-MB (CK-2) 1.64 Troponin I 0.015 NT-Pro-B Natriuret Pep 2010 H 04/05/16 04:29 Creatine Kinase CK-MB (CK-2) Troponin I NT-Pro-B Natriuret Pep 1960 H Impressions: Abdomen/Pelvis CT 04/01/16 00:00 IMPRESSION: Cirrhosis. Ascites. No acute findings. Chest CT 04/01/16 00:00 IMPRESSION: 1. Cardiomegaly. Right pleural effusion. 2. Cirrhosis. Mild ascites. Chest X-Ray 04/10/16 00:00 IMPRESSION: Improving CHF. Assessment & Plan - Diagnosis (1) Anasarca Is this a current diagnosis for this admission?: YesPlan: All getting much better resolvedWill cut down the Demadex 20 mg because of the worsening the kidney functions (2) Congestive heart failure Qualifiers: Congestive heart failure type: unspecified congestive heart failure type Is this a current diagnosis for this admission?: YesPlan: Continues to Demadex 20 mg and spironolactone 100 mg (3) Chronic atrial fibrillation Is this a current diagnosis for this admission?: YesPlan: Discussed with the cardiology and the discussed about the Eliquis and is okay to start the Eliquis and stop the Coumadin. Discussed with the patient's very extensively about the Eliquis and potential side effect and no antidote and patient understand very well and patient is willing to try the Eliquis at this point. We also get the stool for guaiac study and continues to monitor the patient's (4) Hypertension Qualifiers: Hypertension type: essential hypertension Qualified Code(s): I10 - Essential (primary) hypertension Is this a current diagnosis for this admission?: YesPlan: We will start the low-dose of metoprolol and continues to hold the losartane (5) Hyperlipidemia Qualifiers: Hyperlipidemia type: unspecified Qualified Code(s): E78.5 - Hyperlipidemia, unspecified Is this a current diagnosis for this admission?: YesPlan: Stable (6) Morbid obesity Qualifiers: Obesity type: unspecified obesity type Qualified Code(s): E66.01 - Morbid (severe) obesity due to excess calories Is this a current diagnosis for this admission?: YesPlan: Patient is probably need a sleep study (7) Shortness of breath Is this a current diagnosis for this admission?: Yes (8) Hypokalemia Is this a current diagnosis for this admission?: Yes (9) Anemia Qualifiers: Anemia type: unspecified type Qualified Code(s): D64.9 - Anemia, unspecified Is this a current diagnosis for this admission?: YesPlan: We will get the GI consult (10) Heme + stool Is this a current diagnosis for this admission?: YesPlan: Discussed with the Dr. Cyr and patient scheduled for endoscopy and colonoscopy - Time Time Spent with patient: 15-24 minutes Medications reviewed and adjusted accordingly: Yes Anticipated discharge: Home Within: Other - Inpatient Certification Medical Necessity: Need Close Monitoring Due to Risk of Patient Decompensation Post Hospital Care: D/C Animal Care Specialist Documentation - Plan Summary Plan Summary: Follow-up with the GI cut down the Demadex get the chest x-ray and continues to monitor the patient's
[2016-04-12] MEDS ORDERED: PEG 3350/NA SULF,BICARB,CL/KCL 4000 ML PO ONE (16:00)
[2016-04-12] MEDS: SIMVASTATIN 10 MG TABLET PO SCH (23:05)
[2016-04-12] MEDS: MONTELUKAST SODIUM 10 MG TABLET PO SCH (23:05)
[2016-04-12] MEDS: DIPHENHYDRAMINE HCL 25 MG CAPSULE PO SCH (23:06)
[2016-04-13] MEDS: LANSOPRAZOLE 30 MG TAB.RAP.DR PO SCH (06:22)
[2016-04-13 07:53] LABS: BLOOD UREA NITROGEN 60 mg/dL (7-20); CALCIUM 10.9 mg/dL (8.4-10.2); CHLORIDE 82 mmol/L (98-107); CREATININE RESULT 1.23 mg/dL (0.52-1.25); GLUCOSE 113 mg/dL (75-110); POTASSIUM 4.3 mmol/L (3.6-5.0); SODIUM 138.6 mmol/L (137-145)
[2016-04-13 08:05] LABS: ANION GAP 13 (5-19)
[2016-04-13 08:07] LABS: CARBON DIOXIDE 44 mmol/L (22-30)
--- NOTE | 2016-04-13 08:24 | PDOC PROGRESS REPORT ---
Subjective Progress Note for:: 04/13/16 Subjective:: Patient is doing fair denied any chest pain denied any shortness of the breath no abdominal pain. Patient is scheduled for the endoscopy and colonoscopy per GI today. Physical Exam Vital Signs: Temp Pulse Resp BP Pulse Ox 97.8 F 102 H 17 119/71 99 04/13/16 03:53 04/13/16 07:00 04/13/16 03:53 04/13/16 03:53 04/13/16 03:53 Intake & Output 04/12/16 04/13/16 04/14/16 06:59 06:59 06:59 Intake Total 1055 760 Balance 1055 760 Weight 138 kg 139 kg General appearance: PRESENT: no acute distress, well-developed, well-nourished Head exam: PRESENT: atraumatic, normocephalic Eye exam: PRESENT: conjunctiva pink, EOMI, PERRLA. ABSENT: scleral icterus Ear exam: PRESENT: normal external ear exam Mouth exam: PRESENT: moist, tongue midline Neck exam: PRESENT: full ROM. ABSENT: carotid bruit, JVD, lymphadenopathy, thyromegaly Cardiovascular exam: PRESENT: RRR. ABSENT: diastolic murmur, rubs, systolic murmur Pulses: PRESENT: normal dorsalis pedis pul, +2 pedal pulses bilateral Vascular exam: PRESENT: normal capillary refill GI/Abdominal exam: PRESENT: normal bowel sounds, soft. ABSENT: distended, guarding, mass, organolmegaly, rebound, tenderness Rectal exam: PRESENT: deferred Extremities exam: ABSENT: pedal edema Neurological exam: PRESENT: alert, awake, oriented to person, oriented to place , oriented to time, oriented to situation, CN II-XII grossly intact. ABSENT: motor sensory deficit Psychiatric exam: PRESENT: appropriate affect, normal mood. ABSENT: homicidal ideation, suicidal ideation Skin exam: PRESENT: dry, intact, warm. ABSENT: cyanosis, rash Results Laboratory Results: 04/12/16 09:05 04/13/16 07:18 04/12/16 04/12/16 04/13/16 07:38 09:05 07:18 WBC 5.6 RBC 4.64 Hgb 10.7 L Hct 34.6 L MCV 75 L MCH 23.1 L MCHC 31.0 L RDW 17.8 H Plt Count 148 L Seg Neutrophils % 58.8 Lymphocytes % 18.9 Monocytes % 19.3 H Eosinophils % 2.3 Basophils % 0.7 Absolute Neutrophils 3.3 Absolute Lymphocytes 1.1 Absolute Monocytes 1.1 Absolute Eosinophils 0.1 Absolute Basophils 0.0 Sodium 139.9 138.6 Potassium 4.1 4.3 Chloride 81 L 82 L Carbon Dioxide 41 H* 44 H* Anion Gap 18 13 BUN 68 H 60 H Creatinine 1.56 H 1.23 Est GFR ( Amer) 53 L > 60 Est GFR (Non-Af Amer) 44 L 58 L Glucose 148 H 113 H Calcium 11.3 H 10.9 H 03/31/16 03/31/16 03/31/16 18:10 18:10 18:10 Creatine Kinase 59 CK-MB (CK-2) 1.64 Troponin I 0.015 NT-Pro-B Natriuret Pep 2010 H 04/05/16 04:29 Creatine Kinase CK-MB (CK-2) Troponin I NT-Pro-B Natriuret Pep 1960 H Impressions: Abdomen/Pelvis CT 04/01/16 00:00 IMPRESSION: Cirrhosis. Ascites. No acute findings. Chest CT 04/01/16 00:00 IMPRESSION: 1. Cardiomegaly. Right pleural effusion. 2. Cirrhosis. Mild ascites. Chest X-Ray 04/12/16 00:00 IMPRESSION: No acute findings. Resolution of the previous congestive heart failure. Assessment & Plan - Diagnosis (1) Anasarca Is this a current diagnosis for this admission?: YesPlan: All resolving (2) Congestive heart failure Qualifiers: Congestive heart failure type: unspecified congestive heart failure type Is this a current diagnosis for this admission?: YesPlan: Congestive heart failure is completely resolved (3) Chronic atrial fibrillation Is this a current diagnosis for this admission?: YesPlan: Discussed with the cardiology and the discussed about the Eliquis and is okay to start the Eliquis and stop the Coumadin. Discussed with the patient's very extensively about the Eliquis and potential side effect and no antidote and patient understand very well and patient is willing to try the Eliquis at this point. We also get the stool for guaiac study and continues to monitor the patient's (4) Hypertension Qualifiers: Hypertension type: essential hypertension Qualified Code(s): I10 - Essential (primary) hypertension Is this a current diagnosis for this admission?: YesPlan: We will start the low-dose of metoprolol and continues to hold the losartane (5) Hyperlipidemia Qualifiers: Hyperlipidemia type: unspecified Qualified Code(s): E78.5 - Hyperlipidemia, unspecified Is this a current diagnosis for this admission?: YesPlan: Stable (6) Morbid obesity Qualifiers: Obesity type: unspecified obesity type Qualified Code(s): E66.01 - Morbid (severe) obesity due to excess calories Is this a current diagnosis for this admission?: YesPlan: Patient is probably need a sleep study (7) Shortness of breath Is this a current diagnosis for this admission?: YesPlan: All resolving (8) Hypokalemia Is this a current diagnosis for this admission?: Yes (9) Anemia Qualifiers: Anemia type: unspecified type Qualified Code(s): D64.9 - Anemia, unspecified Is this a current diagnosis for this admission?: YesPlan: Scheduled for endoscopy and colonoscopy today (10) Heme + stool Is this a current diagnosis for this admission?: Yes - Time Time Spent with patient: 15-24 minutes Medications reviewed and adjusted accordingly: Yes Anticipated discharge: Home Within: within 24 hours - Inpatient Certification Medical Necessity: Need Close Monitoring Due to Risk of Patient Decompensation 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
[2016-04-13] MEDS: GLIPIZIDE XL 2.5 MG TAB.ER.24 PO SCH ×2 (08:27→18:03)
[2016-04-13] MEDS: SPIRONOLACTONE 25 MG TABLET PO SCH (10:26)
[2016-04-13] MEDS: POTASSIUM CHLORIDE 10 MEQ TABLET.SA PO SCH (10:27)
[2016-04-13] MEDS: METOPROLOL TARTRATE 25 MG TABLET PO SCH ×2 (10:27→22:23)
[2016-04-13] MEDS ORDERED: MIDAZOLAM 2 MG/2 ML INJ ONE (13:39)
[2016-04-13] MEDS ORDERED: ONDANSETRON HCL INJ/PF 4 MG/2 ML SDV ONE (13:39)
[2016-04-13] MEDS ORDERED: PROMETHAZINE HCL INJ 25 MG/1 ML VIAL ONE (13:39)
[2016-04-13] MEDS ORDERED: DIPHENHYDRAMINE HCL 50 MG/ML VIAL ONE (13:39)
[2016-04-13] MEDS ORDERED: NALOXONE HCL INJ/PF 0.4 MG/1 ML SDV ONE (13:39)
[2016-04-13] MEDS ORDERED: GLUCAGON,HUMAN RECOMB 1 MG INJ ONE (13:40)
[2016-04-13] MEDS ORDERED: EPINEPHRINE INJ 1 MG/10 ML DISP.SYRIN ONE (13:40)
[2016-04-13] MEDS ORDERED: FLUMAZENIL INJ 0.5 MG/5 ML VIAL IV ONE (13:40)
[2016-04-13] MEDS: MIDAZOLAM 2 MG/2 ML INJ ONE ×3 (13:50→14:00)
[2016-04-13] MEDS: FENTANYL CITRATE INJ/PF 100 MCG/2 ML AMPUL ONE ×2 (13:52→13:56)
--- NOTE | 2016-04-13 14:30 | Operative Report ---
Operative Report DATE OF SURGERY: 04/13/16 Operative Report: The risks, benefits and alternatives of the procedure including risk of bleeding , perforation requiring surgery are explained to the patient and informed consent is obtained patient is taken to the Endoscopy suit Time out is called conscious sedation medications are provided a rectal exam is performed which did not reveal any masses, tears or fissures. An Olympus was scope was inserted into the patient's rectum. The scope was then carefully advanced all the way to cecum. This seems identified by the usual anatomical landmarks of the ileocecal valve as well as the appendiceal orifice. Photo documentations obtained. Scope was then sequentially pulled back creative rest segments of the colon including the ascending colon, hepatic flexure, transverse colon, splenic flexure, descending colon and finally into the rectosigmoid colon Retroflexion maneuvers performed The risks benefits and alternatives of the procedure explained to the patient in detail and informed consent is obtained that GIF Olympus video scope was inserted into the patient's mouth and hypopharynx the esophagus is identified intubated and insufflated the scope was then advanced through the esophagus stomach and duodenum retroflexion maneuver is done the esophagus stomach and first and second portions of the duodenum examined PREOPERATIVE DIAGNOSIS: Heme positive stools POSTOPERATIVE DIAGNOSIS: Diverticulosis. Left sided inflammation that could be due to peridiverticular inflammation. Internal hemorrhoids. Gastritis. Benign gastric polyps OPERATION: colonoscopy with biopsy. EGD with biopsy SURGEON: MARICEL MOYER ANESTHESIA: Moderate Sedation - 6 mg of Versed, 100 g of fentanyl. Conscious sedation monitoring time 30 minutes TISSUE REMOVED OR ALTERED: Gastric specimens rule out Helicobacter pylori. Colon specimens rule out ischemic colitis COMPLICATIONS: None. ESTIMATED BLOOD LOSS: none. INTRAOPERATIVE FINDINGS: As noted above. No bleeding lesion noted. No ulcers noted. Negative for AVMs PROCEDURE: Patient tolerated the procedure well No immediate postprocedure complications are noted Patient sent back to her room in good condition Resume previous diet advance as tolerated Resume previous activity level We'll await on biopsies Internal hemorrhoids likely explain the heme positive stool Should be safe to start anticoagulation We'll discuss with Dr. Lockwood
[2016-04-13] MEDS: TORSEMIDE 20 MG TABLET PO SCH (15:34)
[2016-04-13] MEDS: ASPIRIN 81 MG TABLET, ENT COATED PO SCH (15:35)
[2016-04-13] MEDS: MULTIVITAMIN TABLET PO SCH (15:35)
[2016-04-13] MEDS: DIPHENHYDRAMINE HCL 25 MG CAPSULE PO SCH (22:22)
[2016-04-13] MEDS: MONTELUKAST SODIUM 10 MG TABLET PO SCH (22:22)
[2016-04-13] MEDS: SIMVASTATIN 10 MG TABLET PO SCH (22:22)
[2016-04-14] MEDS: LANSOPRAZOLE 30 MG TAB.RAP.DR PO SCH (06:30)
[2016-04-14] MEDS: GLIPIZIDE XL 2.5 MG TAB.ER.24 PO SCH (07:57)
[2016-04-14] MEDS: POTASSIUM CHLORIDE 10 MEQ TABLET.SA PO SCH (09:06)
[2016-04-14] MEDS: METOPROLOL TARTRATE 25 MG TABLET PO SCH (09:06)
[2016-04-14] MEDS: MULTIVITAMIN TABLET PO SCH (09:06)
[2016-04-14] MEDS: SPIRONOLACTONE 25 MG TABLET PO SCH (09:08)
[2016-04-14] MEDS: ASPIRIN 81 MG TABLET, ENT COATED PO SCH (09:08)
[2016-04-14] MEDS: TORSEMIDE 20 MG TABLET PO SCH (09:08)
[2016-04-14 09:38] LABS: ANION GAP 17 (5-19); BLOOD UREA NITROGEN 55 mg/dL (7-20); CALCIUM 10.4 mg/dL (8.4-10.2); CARBON DIOXIDE 39 mmol/L (22-30); CHLORIDE 81 mmol/L (98-107); CREATININE RESULT 1.31 mg/dL (0.52-1.25); GLUCOSE 179 mg/dL (75-110); POTASSIUM 4.1 mmol/L (3.6-5.0); SODIUM 136.7 mmol/L (137-145)
[2016-04-14 11:27] VITALS: BP 123/66
--- NOTE | 2016-04-14 13:45 | PDOC DISCHARGE SUMMARY ---
General - Admit/Disc Date/PCP Admission Date/Primary Care Provider: 03/31/16 16:54 DAVID LE MD Discharge Date: 04/14/16 - Discharge Diagnosis (1) Anasarca Is this a current diagnosis for this admission?: YesSummary: All resolved from the right-sided heart failure (2) Congestive heart failure Is this a current diagnosis for this admission?: YesSummary: Is a right-sided heart failure currently all stable follow outpatients cardiology (3) Chronic atrial fibrillation Is this a current diagnosis for this admission?: YesSummary: Start the patient on Eliquis and stop the Coumadin and discussed with the patient's very extensively about the new medications and discuss about the risk and benefit and patient understand very well and the patient's proceed for the new medications and discussed with the Dr. Ingram the literacy coordinator and agree about to start on Eliquis (4) Hypertension Is this a current diagnosis for this admission?: YesSummary: Patient is currently running lower end after losing the several liters of the fluids from the anesthetic and will stop the losartan at this point and decreased the metoprolol to the lower range and discussed with the patient's to continues check the blood pressure at home (5) Hyperlipidemia Is this a current diagnosis for this admission?: YesSummary: Continues to statin (6) Morbid obesity Is this a current diagnosis for this admission?: YesSummary: Patients need a sleep study as outpatients (7) Shortness of breath Is this a current diagnosis for this admission?: YesSummary: From congestive heart failure is currently all resolved (8) Hypokalemia Is this a current diagnosis for this admission?: YesSummary: All resolved (9) Anemia Is this a current diagnosis for this admission?: YesSummary: Patient had a GI workup done including endoscopy and colonoscopy and discussed with the Dr. Cyr it is okay to start the patient on Eliquis and discussed with the patient's about 2 to follow as outpatient (10) Heme + stool Is this a current diagnosis for this admission?: YesSummary: All GI workup negative - Additional Information Resuscitation Status: Full Code Discharge Diet: Diabetic Discharge Activity: Activity As Tolerated, Balance Activity w/Rest, Weigh Daily Home Medications: Acetaminophen [Acetaminophen Extra Strength] 500 mg PO Q6HP PRN 03/31/16 Diphenhydramine HCl [Benadryl] 25 mg PO QHS 03/31/16 Montelukast Sodium [Singulair 10 mg Tablet] 10 mg PO QPM 03/31/16 Omeprazole 40 mg PO DAILY 03/31/16 Pioglitazone HCl [Actos] 45 mg PO DAILY 03/31/16 Simvastatin [Zocor 20 mg Tablet] 20 mg PO QPM 03/31/16 Apixaban [Eliquis 5 mg Tablet] 5 mg PO BID #60 tablet 04/14/16 Glipizide [Glucotrol Xl 2.5 mg Tab.er] 2.5 mg PO BIDACBS #60 tab.er.24 04/14/16 Metoprolol Tartrate [Lopressor 25 mg Tablet] 12.5 mg PO Q12 #60 tablet 04/14/16 Potassium Chloride [Klor-Con 10 Meq Tablet.sa] 20 meq PO DAILY #30 tablet.sa 11/21 Spironolactone [Aldactone 25 mg Tablet] 100 mg PO DAILY #30 tablet 04/14/16 Torsemide [Demadex 20 mg Tablet] 20 mg PO DAILY #30 tablet 04/14/16 History of Present Illness History of Present Illness: REJI LOUIS is a 75 year old male This is a 75-year-old maleWith the history of the congestive heart failure and currently see a cardiology at the [facility] with the ejection fraction was between 50-55% was and with the history of the chronic atrial fibrillations and on chronic Coumadin with the history of the hypertensions hyperlipidemia and the severe morbid obesity came to the my office today with a complaint of swelling in the lower extremity to both testicles and the very tightness in the abdominal area and a complaining of shortness of the breath. Patient's symptom is more worsening according to the patient for the last 2-3 days. Patient see the literacy coordinator in the last February and told to continues to Lasix and his shortness of the breath with the multifactorial. Patient's denied any chest pain but patient is not feeling well and decided to admit in the hospital for further evaluation and treatment and consulted cardiology in the hospital for further evaluations and discussed with the and angry about that Hospital Course Hospital Course: This is a 75-year-old male present in the office with a significant swelling in the lower extremity abdomen and the scrotal area and complaining of shortness of the breath and decided to admit in the hospital and patient's Dr. Ingram was consulted and patient was diagnosed with a right-sided heart failure and patient was initially started on the Lasix drips and patient significantly improve the swelling and switch back to the p.o. medications and adjust the medicines for BUN and creatinine and patient is currently doing fair and pretty much all anasarca is resolved. Patient's had echocardiogram done and also have a CT scan of the chest abdomen and pelvis and serosa consistent some with ascites and fluid and some kind of liver disorders most likely a from the cardiac cirrhosis. Patient otherwise denied any other problems on the discharge patient's move around without any problems and patient's p.o. intake is fair patient's denied any chest pain no shortness of the breath and patient' s electrolytes is also stable to and patient's discussed with the Dr. Ingram and suggest the follow as outpatients in patients at this points to the maximum benefit from the hospital. But extensive discussions with the patient about the diet control CHF guidelines and continues to monitor the rate and follow in office in 1 week. We will follow in a one-week and check the CBC and Chem-7 and follow with the Dr. Ingram literacy coordinator and patients probably need a sleep study to. Will repeat the liver functions and further evaluate the patient's. Discussed with the patient's The patient's current conditions and follow as outpatients Physical Exam Vital Signs: Temp Pulse Resp BP Pulse Ox 97.5 F 86 16 123/66 95 04/14/16 11:29 04/14/16 11:29 04/14/16 11:29 04/14/16 11:29 04/14/16 11:29 Intake & Output 04/13/16 04/14/16 04/15/16 06:59 06:59 06:59 Intake Total 760 260 Balance 760 260 Weight 139 kg 138.3 kg General appearance: PRESENT: no acute distress, well-developed, well-nourished Head exam: PRESENT: atraumatic, normocephalic Eye exam: PRESENT: conjunctiva pink, EOMI, PERRLA. ABSENT: scleral icterus Ear exam: PRESENT: normal external ear exam Mouth exam: PRESENT: moist, tongue midline Neck exam: PRESENT: full ROM. ABSENT: carotid bruit, JVD, lymphadenopathy, thyromegaly Cardiovascular exam: PRESENT: RRR. ABSENT: diastolic murmur, rubs, systolic murmur Pulses: PRESENT: normal dorsalis pedis pul, +2 pedal pulses bilateral Vascular exam: PRESENT: normal capillary refill GI/Abdominal exam: PRESENT: normal bowel sounds, soft. ABSENT: distended, guarding, mass, organolmegaly, rebound, tenderness Rectal exam: PRESENT: deferred Neurological exam: PRESENT: alert, awake, oriented to person, oriented to place , oriented to time, oriented to situation, CN II-XII grossly intact. ABSENT: motor sensory deficit Psychiatric exam: PRESENT: appropriate affect, normal mood. ABSENT: homicidal ideation, suicidal ideation Skin exam: PRESENT: dry, intact, warm. ABSENT: cyanosis, rash Results Laboratory Results: 04/12/16 09:05 04/14/16 08:51 04/14/16 08:51 Sodium 136.7 L Potassium 4.1 Chloride 81 L Carbon Dioxide 39 H Anion Gap 17 BUN 55 H Creatinine 1.31 H Est GFR ( Amer) > 60 Est GFR (Non-Af Amer) 54 L Glucose 179 H Calcium 10.4 H 03/31/16 03/31/16 03/31/16 18:10 18:10 18:10 Creatine Kinase 59 CK-MB (CK-2) 1.64 Troponin I 0.015 NT-Pro-B Natriuret Pep 2010 H 04/05/16 04:29 Creatine Kinase CK-MB (CK-2) Troponin I NT-Pro-B Natriuret Pep 1960 H Impressions: Abdomen/Pelvis CT 04/01/16 00:00 IMPRESSION: Cirrhosis. Ascites. No acute findings. Chest CT 04/01/16 00:00 IMPRESSION: 1. Cardiomegaly. Right pleural effusion. 2. Cirrhosis. Mild ascites. Chest X-Ray 04/12/16 00:00 IMPRESSION: No acute findings. Resolution of the previous congestive heart failure. Qualifiers PATEINT BEING DISCHARGED WITH ANY OF THE FOLLOWING DIAGNOSIS?: Heart Failure VTE patient discharged on overlapping Therapy?: Yes HF Pt being discharged on ACEI for LVEF less than 40%?: No HF Pt being discharged on ARBS for LVEF less than 40%?: No HF Pt with Afib discharged with Warfarin?: Yes HF Pt discharged on evidence-based Beta [place]?: Yes Plan Time Spent: Greater than 30 Minutes - Patient starts on the Demadex and Spironolactone and check the potassium in a one-week. Will recheck the patient' s blood pressures medications patients may be a get a benefit from ALLIE inhibitors if the patient's blood pressures remain stable. Patient's Actos and Metformin was DC'd on discharge and patient was put on the glipizide for the diabetes. And patients discussed with the low-salt diet and follow outpatient as able
--- NOTE | 2016-04-14 15:55 | PDOC PROGRESS REPORT ---
Subjective Progress Note for:: 04/14/16 Subjective:: patient was seen prior to his discharge he was noted to be ambulating in the hallways patient underwent EGD and colonoscopy yesterday no significant overnight events biopsies are not available yet not complaining of any chest pain or shortness of breath there is no rectal bleeding spoke with Dr Lockwood outpatient follow up will be adequate Physical Exam Vital Signs: Temp Pulse Resp BP Pulse Ox 97.5 F 86 16 123/66 95 04/14/16 11:29 04/14/16 11:29 04/14/16 11:29 04/14/16 11:29 04/14/16 11:29 Intake & Output 04/13/16 04/14/16 04/15/16 06:59 06:59 06:59 Intake Total 760 260 Balance 760 260 Weight 139 kg 138.3 kg General appearance: PRESENT: no acute distress, well-developed, well-nourished Head exam: PRESENT: atraumatic, normocephalic Eye exam: PRESENT: EOMI, PERRLA. ABSENT: nystagmus, periorbital swelling, scleral icterus Throat exam: ABSENT: tonsillar exudate, tonsillogmegaly Neck exam: ABSENT: meningismus, tenderness, thyromegaly Respiratory exam: PRESENT: clear to auscultation keenan, unlabored. ABSENT: tachypnea Cardiovascular exam: PRESENT: RRR, +S1, +S2 Pulses: PRESENT: normal carotid pulses GI/Abdominal exam: PRESENT: soft. ABSENT: Mccormack's sign, rebound, rigid, tenderness Extremities exam: ABSENT: joint swelling, pedal edema Musculoskeletal exam: PRESENT: full ROM Neurological exam: PRESENT: alert, awake, oriented to person, oriented to place , oriented to time, oriented to situation, CN II-XII grossly intact Psychiatric exam: PRESENT: appropriate affect Skin exam: PRESENT: normal color. ABSENT: mottled, pallor, petechiae, urticaria , vesicles Results Laboratory Results: 04/12/16 09:05 04/14/16 08:51 04/14/16 08:51 Sodium 136.7 L Potassium 4.1 Chloride 81 L Carbon Dioxide 39 H Anion Gap 17 BUN 55 H Creatinine 1.31 H Est GFR ( Amer) > 60 Est GFR (Non-Af Amer) 54 L Glucose 179 H Calcium 10.4 H 03/31/16 03/31/1617 18:10 18:10 18:10 Creatine Kinase 59 CK-MB (CK-2) 1.64 Troponin I 0.015 NT-Pro-B Natriuret Pep 2010 H 04/05/16 04:29 Creatine Kinase CK-MB (CK-2) Troponin I NT-Pro-B Natriuret Pep 1960 H Impressions: Abdomen/Pelvis CT 04/01/16 00:00 IMPRESSION: Cirrhosis. Ascites. No acute findings. Chest CT 04/01/16 00:00 IMPRESSION: 1. Cardiomegaly. Right pleural effusion. 2. Cirrhosis. Mild ascites. Chest X-Ray 04/12/16 00:00 IMPRESSION: No acute findings. Resolution of the previous congestive heart failure. Assessment & Plan - Diagnosis (1) Heme + stool Is this a current diagnosis for this admission?: YesPlan: no obvious bleeding lesion is noted some internal hemorrhoids patient can be started back on anticoagulation out patient follow up patient can be discharged if no other medical issues - Time Time Spent with patient: 15-24 minutes
--- NOTE | 2016-04-17 13:21 | PDOC H&P ---
History of Present Illness Admission Date/PCP: 03/31/16 16:54 DAVID LE MD Patient complains of: sob History of Present Illness: REJI LOUIS is a 75 year old male This is a 75-year-old maleWith the history of the congestive heart failure and currently see a cardiology at the [facility] with the ejection fraction was between 50-55% was and with the history of the chronic atrial fibrillations and on chronic Coumadin with the history of the hypertensions hyperlipidemia and the severe morbid obesity came to the my office today with a complaint of swelling in the lower extremity to both testicles and the very tightness in the abdominal area and a complaining of shortness of the breath. Patient's symptom is more worsening according to the patient for the last 2-3 days. 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 Patient's denied any chest pain but patient is not feeling well and decided to admit in the hospital for further evaluation and treatment and consulted cardiology in the hospital for further evaluations and discussed with the and angry about that Past Medical History Cardiac Medical History: Reports: Atrial Fibrillation, Congestive Heart Failure , Coronary Artery Disease, Hyperlipidema, Hypertension, Other - Moderate pulmonary hypertension Pulmonary Medical History: Reports: Chronic Obstructive Pulmonary Disease (COPD) Endocrine Medical History: Reports: Diabetes Mellitus Type 2 Social History Smoking Status: Unknown if Ever Smoked Frequency of Alcohol Use: None Hx Recreational Drug Use: No Hx Prescription Drug Abuse: No Family History Family History: Reviewed & Not Pertinent Parental Family History Reviewed: Yes Children Family History Reviewed: Yes Sibling(s) Family History Reviewed.: Yes Medication/Allergy Home Medications: Acetaminophen [Acetaminophen Extra Strength] 500 mg PO Q6HP PRN 03/31/16 Diphenhydramine HCl [Benadryl] 25 mg PO QHS 03/31/16 Montelukast Sodium [Singulair 10 mg Tablet] 10 mg PO QPM 03/31/16 Omeprazole 40 mg PO DAILY 03/31/16 Pioglitazone HCl [Actos] 45 mg PO DAILY 03/31/16 Simvastatin [Zocor 20 mg Tablet] 20 mg PO QPM 03/31/16 Apixaban [Eliquis 5 mg Tablet] 5 mg PO BID #60 tablet 04/14/16 Glipizide [Glucotrol Xl 2.5 mg Tab.er] 2.5 mg PO BIDACBS #60 tab.er.24 04/14/16 Metoprolol Tartrate [Lopressor 25 mg Tablet] 12.5 mg PO Q12 #60 tablet 04/14/16 Potassium Chloride [Klor-Con 10 Meq Tablet.sa] 20 meq PO DAILY #30 tablet.sa 11/21 Spironolactone [Aldactone 25 mg Tablet] 100 mg PO DAILY #30 tablet 04/14/16 Torsemide [Demadex 20 mg Tablet] 20 mg PO DAILY #30 tablet 04/14/16 Allergies/Adverse Reactions: No Known Allergies Allergy (Unverified 03/31/16 18:25) Review of Systems Constitutional: PRESENT: fatigue, weakness Cardiovascular: PRESENT: dyspnea on exertion, edema Respiratory: PRESENT: dyspnea Gastrointestinal: PRESENT: bloating Neurological: ABSENT: as per HPI, abnormal gait, abnormal movements, abnormal speech, confusion, convulsions, dizziness, focal weakness, frequent falls, lack of coordination, memory loss, numbness, paresthesias, restless legs, syncope, tingling, tremor(s), vertigo, weakness, other Physical Exam General appearance: PRESENT: no acute distress Head exam: PRESENT: normocephalic Eye exam: PRESENT: PERRLA Neck exam: ABSENT: carotid bruit, full ROM, JVD, lymphadenopathy, meningismus, tenderness, thyromegaly, tracheal deviation, tracheostomy, other Respiratory exam: PRESENT: decreased breath sounds. ABSENT: rhonchi, wheezes Cardiovascular exam: PRESENT: +S1, +S2 GI/Abdominal exam: PRESENT: distended, normal bowel sounds, soft Extremities exam: PRESENT: pedal edema Musculoskeletal exam: PRESENT: ambulatory Neurological exam: PRESENT: alert, awake, oriented to person, oriented to place , oriented to time, oriented to situation Psychiatric exam: PRESENT: anxious, normal mood Skin exam: PRESENT: normal color Assessment & Plan - Diagnosis (1) Anasarca Is this a current diagnosis for this admission?: YesPlan: Admit the patient in the hospital start the patient on IV Lasix drip will consult the cardiology and also do the 24-hour urine protein to rule out any underlying nephrotic syndrome and get the ultrasound for the kidney and echocardiogram (2) Congestive heart failure Qualifiers: Congestive heart failure type: unspecified congestive heart failure type Is this a current diagnosis for this admission?: YesPlan: Patient's recent's cardiology note from the [facility] suggest the EF was 50And he was not sure about the heart failure versus multifactorial with the shortness of the breath but definitely suggest the continues the Lasix (3) Chronic atrial fibrillation Is this a current diagnosis for this admission?: YesPlan: On chronic Coumadin (4) Hypertension Qualifiers: Hypertension type: essential hypertension Qualified Code(s): I10 - Essential (primary) hypertension Is this a current diagnosis for this admission?: YesPlan: Continues to current medications (5) Hyperlipidemia Qualifiers: Hyperlipidemia type: unspecified Qualified Code(s): E78.5 - Hyperlipidemia, unspecified Is this a current diagnosis for this admission?: YesPlan: Stable (6) Morbid obesity Qualifiers: Obesity type: unspecified obesity type Qualified Code(s): E66.01 - Morbid (severe) obesity due to excess calories Is this a current diagnosis for this admission?: YesPlan: Patient is probably need a sleep study (7) Shortness of breath Is this a current diagnosis for this admission?: YesPlan: With the multifactorial from the possible congestive heart failure and underlying sleep apnea and probably from the COPD will get the cardiology consult echocardiogram and will get the CT angiogram and continues to monitor the patient's - Time Time Spent: 30 to 50 Minutes Medications reviewed and adjusted accordingly: Yes Anticipated discharge: Home, Other Within: Other - Inpatient Certification Medical Necessity: Failure to Improve With Outpatient Therapy, Need Close Monitoring Due to Risk of Patient Decompensation Post Hospital 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
== END 2016-04-14 13:39 | disposition home or self-care (01) | DRG 292 ==
LOC: 5 16:54
PROVIDERS: ADMIT Family Medicine; ATTEND Family Medicine
PROC: 0DB68ZX Excision of Stomach, Via Natural or Artificial Opening Endoscopic, Diagnostic (ICD-10-PCS; principal; 2016-04-13 12:30)
PROC: 0DBG8ZX Excision of Left Large Intestine, Via Natural or Artificial Opening Endoscopic, Diagnostic (ICD-10-PCS; 2016-04-13 12:30)
DX: I11.0 Hypertensive heart disease with heart failure (principal); Z68.42 Body mass index [BMI] 45.0-49.9, adult; R18.8 Other ascites; I50.41 Acute combined systolic (congestive) and diastolic (congestive) heart failure; I48.2 Chronic atrial fibrillation; E78.5 Hyperlipidemia, unspecified; E66.01 Morbid (severe) obesity due to excess calories; E87.6 Hypokalemia; D64.9 Anemia, unspecified; K74.60 Unspecified cirrhosis of liver; I25.10 Atherosclerotic heart disease of native coronary artery without angina pectoris; I27.2 Other secondary pulmonary hypertension; E11.9 Type 2 diabetes mellitus without complications; J44.9 Chronic obstructive pulmonary disease, unspecified; K57.90 Diverticulosis of intestine, part unspecified, without perforation or abscess without bleeding; K64.8 Other hemorrhoids; K29.70 Gastritis, unspecified, without bleeding; K31.7 Polyp of stomach and duodenum; N50.89 Other specified disorders of the male genital organs; Z79.899 Other long term (current) drug therapy
CPT/HCPCS: 36415; 43239; 45380; 71020; 71250; 74176; 80048; 80076; 81001; 82272; 82550; 82553; 82607; 82728; 82746; 82962; 83020; 83540; 83550; 83735; 83880; 84443; 84466; 84484; 85025; 85045; 85610; 87493; 88305; 88342; 93005; 93010; 93306; J0171; J0692; J1200; J1610; J1815; J1940; J2250; J2310; J2405; J2550; J3010; J3490; J7050

== ENCOUNTER → 2017-01-02 | Outpatient (CLI) | payer BC, MEDICARE | LOC: OD 12:42 | PROVIDERS: ATTEND Family Medicine | DX: Z53.9 Procedure and treatment not carried out, unspecified reason (principal) ==

== ENCOUNTER → 2017-02-28 | Outpatient (CLI) | payer BC ==
--- NOTE | 2017-02-28 17:47 | WOMENS IMAGING REPORT ---
EXAM DESCRIPTION: 3D DX MAMMO BILAT; U/S BREAST UNILAT LIMITED COMPLETED DATE/TIME: 02/28/2017 11:07 am; 02/28/2017 11:39 am REASON FOR STUDY: MASTODYNIA; N64.4; LEFT BREAST PAIN; N64.4; RT BREAST PAIN; N64.4 N64.4 MASTODYNI A COMPARISON: None. TECHNIQUE: Standard craniocaudal and mediolateral oblique views of each breast recorded using digita l acquisition and breast tomosynthesis. Additional whole male breast 90 mediolateral view, bilateral cone compression in the CC and MLO orie ntations, bilateral male breast ultrasound. LIMITATIONS: None. FINDINGS: RIGHT BREAST MASSES: No suspicious masses. CALCIFICATIONS: No new or suspicious calcifications. ARCHITECTURAL DISTORTION: None. DEVELOPING DENSITY: None. ASYMMETRY: None noted. OTHER: Diffuse right-sided gynecomastia LEFT BREAST MASSES: No suspicious masses. CALCIFICATIONS: No new or suspicious calcifications. ARCHITECTURAL DISTORTION: None. DEVELOPING DENSITY: None. ASYMMETRY: None noted. OTHER: Diffuse left-sided gynecomastia Read with the assistance of CAD: .[facility] - R2 Cenova Version 1.3 .[facility] Imaging - R2 Cenova Version 1.3 .[facility] Imaging - R2 Cenova Version 2.4 .[facility] - R2 Cenova Version 2.4 .[facility] - R2 Grading Machine Feeder Version 9.2 Bilateral breast ultrasound: Bilateral ultrasound of the retroareolar regions was performed. There is moderate bilateral gynecoma stia without worrisome features. No cysts. No masses. No worrisome acoustic absorption. IMPRESSION: Bilateral gynecomastia without worrisome features. BREAST DENSITY: b. There are scattered areas of fibroglandular density. BIRAD: 2 Benign findings. RECOMMENDATION: RECOMMENDED FOLLOW UP: Clinical follow-up for etiology of gynecomastia. If gynecoma stia clinically persists, then screening mammography in 1 year. SPECIFIC INTERVENTION/IMAGING/CONSULTATION RECOMMENDED:No additional intervention/ imaging/consultati on needed at this time. COMMUNICATION:The negative/benign results were communicated to the patient. COMMENT: The patient has been notified of the results by letter per SA requirements. Additional no tification policies are in place for contacting patient with suspicious or incomplete findings. Quality ID #[id number]: The [employer] recommends an annual screening mammogram for women aged 40 years or over. This facility utilizes a reminder system to ensure that all patients receive reminder letters, and/or direct phone calls for appointments. This includes reminders for routine scr eening mammograms, diagnostic mammograms, or other Breast Imaging Interventions when appropriate. Th is patient will be placed in the appropriate reminder system. The [employer] (ACR) has developed recommendations for screening MRI of the breast s in certain patient populations, to be used in conjunction with mammography. Breast MRI surveillanc e may be appropriate for women with more than 20% lifetime risk of developing breast cancer as deter mined by genetic testing, significant family history of the disease, or history of mantle radiation f or Hodgkins Disease. ACR Practice Guidelines 2008. DBT Technology DBT is a type of tomographic mammography. With conventional mammography, overlapping breast tissue ma y make lesions difficult to detect, even with good compression. DBT uses an x-ray tube that rotates a round the breast, taking images at different angles. These images are then combined to create thin sl ices of the breast that the radiologist can view as a 3D reconstruction. The OrderUp unit can perform full-field digital mammograms (2D imaging); or DBT (3D imaging); or both, in a combination mode that quickly performs both the mammogram and the tomosynthesis scan while the breast is still compressed. PQRS 6045F: Fluoroscopic imaging is not utilized for breast tomosynthesis. TECHNICAL DOCUMENTATION: FINDING NUMBER: (1) ASSESSMENT: (1) JOB ID: [id number] [employer]- All Rights Reserved
--- NOTE | 2017-02-28 17:47 | WOMENS IMAGING REPORT ---
EXAM DESCRIPTION: 3D DX MAMMO BILAT; U/S BREAST UNILAT LIMITED COMPLETED DATE/TIME: 02/28/2017 11:07 am; 02/28/2017 11:39 am REASON FOR STUDY: MASTODYNIA; N64.4; LEFT BREAST PAIN; N64.4; RT BREAST PAIN; N64.4 N64.4 MASTODYNI A COMPARISON: None. TECHNIQUE: Standard craniocaudal and mediolateral oblique views of each breast recorded using digita l acquisition and breast tomosynthesis. Additional whole male breast 90 mediolateral view, bilateral cone compression in the CC and MLO orie ntations, bilateral male breast ultrasound. LIMITATIONS: None. FINDINGS: RIGHT BREAST MASSES: No suspicious masses. CALCIFICATIONS: No new or suspicious calcifications. ARCHITECTURAL DISTORTION: None. DEVELOPING DENSITY: None. ASYMMETRY: None noted. OTHER: Diffuse right-sided gynecomastia LEFT BREAST MASSES: No suspicious masses. CALCIFICATIONS: No new or suspicious calcifications. ARCHITECTURAL DISTORTION: None. DEVELOPING DENSITY: None. ASYMMETRY: None noted. OTHER: Diffuse left-sided gynecomastia Read with the assistance of CAD: .[facility] - R2 Cenova Version 1.3 .[facility] Imaging - R2 Cenova Version 1.3 .[facility] Imaging - R2 Cenova Version 2.4 .[facility] - R2 Cenova Version 2.4 .[facility] - R2 Cloud Services Architect Version 9.2 Bilateral breast ultrasound: Bilateral ultrasound of the retroareolar regions was performed. There is moderate bilateral gynecoma stia without worrisome features. No cysts. No masses. No worrisome acoustic absorption. IMPRESSION: Bilateral gynecomastia without worrisome features. BREAST DENSITY: b. There are scattered areas of fibroglandular density. BIRAD: 2 Benign findings. RECOMMENDATION: RECOMMENDED FOLLOW UP: Clinical follow-up for etiology of gynecomastia. If gynecoma stia clinically persists, then screening mammography in 1 year. SPECIFIC INTERVENTION/IMAGING/CONSULTATION RECOMMENDED:No additional intervention/ imaging/consultati on needed at this time. COMMUNICATION:The negative/benign results were communicated to the patient. COMMENT: The patient has been notified of the results by letter per SA requirements. Additional no tification policies are in place for contacting patient with suspicious or incomplete findings. Quality ID #[id number]: The [employer] recommends an annual screening mammogram for women aged 40 years or over. This facility utilizes a reminder system to ensure that all patients receive reminder letters, and/or direct phone calls for appointments. This includes reminders for routine scr eening mammograms, diagnostic mammograms, or other Breast Imaging Interventions when appropriate. Th is patient will be placed in the appropriate reminder system. The [employer] (ACR) has developed recommendations for screening MRI of the breast s in certain patient populations, to be used in conjunction with mammography. Breast MRI surveillanc e may be appropriate for women with more than 20% lifetime risk of developing breast cancer as deter mined by genetic testing, significant family history of the disease, or history of mantle radiation f or Hodgkins Disease. ACR Practice Guidelines 2008. DBT Technology DBT is a type of tomographic mammography. With conventional mammography, overlapping breast tissue ma y make lesions difficult to detect, even with good compression. DBT uses an x-ray tube that rotates a round the breast, taking images at different angles. These images are then combined to create thin sl ices of the breast that the radiologist can view as a 3D reconstruction. The SplitSecnd unit can perform full-field digital mammograms (2D imaging); or DBT (3D imaging); or both, in a combination mode that quickly performs both the mammogram and the tomosynthesis scan while the breast is still compressed. PQRS 6045F: Fluoroscopic imaging is not utilized for breast tomosynthesis. TECHNICAL DOCUMENTATION: FINDING NUMBER: (1) ASSESSMENT: (1) JOB ID: [id number] [employer]- All Rights Reserved
--- NOTE | 2017-02-28 17:47 | WOMENS IMAGING REPORT ---
EXAM DESCRIPTION: 3D DX MAMMO BILAT; U/S BREAST UNILAT LIMITED COMPLETED DATE/TIME: 02/28/2017 11:07 am; 02/28/2017 11:39 am REASON FOR STUDY: MASTODYNIA; N64.4; LEFT BREAST PAIN; N64.4; RT BREAST PAIN; N64.4 N64.4 MASTODYNI A COMPARISON: None. TECHNIQUE: Standard craniocaudal and mediolateral oblique views of each breast recorded using digita l acquisition and breast tomosynthesis. Additional whole male breast 90 mediolateral view, bilateral cone compression in the CC and MLO orie ntations, bilateral male breast ultrasound. LIMITATIONS: None. FINDINGS: RIGHT BREAST MASSES: No suspicious masses. CALCIFICATIONS: No new or suspicious calcifications. ARCHITECTURAL DISTORTION: None. DEVELOPING DENSITY: None. ASYMMETRY: None noted. OTHER: Diffuse right-sided gynecomastia LEFT BREAST MASSES: No suspicious masses. CALCIFICATIONS: No new or suspicious calcifications. ARCHITECTURAL DISTORTION: None. DEVELOPING DENSITY: None. ASYMMETRY: None noted. OTHER: Diffuse left-sided gynecomastia Read with the assistance of CAD: .[facility] - R2 Cenova Version 1.3 .[facility] Imaging - R2 Cenova Version 1.3 .[facility] Imaging - R2 Cenova Version 2.4 .[facility] - R2 Cenova Version 2.4 .[facility] - R2 Music Therapy Teacher Version 9.2 Bilateral breast ultrasound: Bilateral ultrasound of the retroareolar regions was performed. There is moderate bilateral gynecoma stia without worrisome features. No cysts. No masses. No worrisome acoustic absorption. IMPRESSION: Bilateral gynecomastia without worrisome features. BREAST DENSITY: b. There are scattered areas of fibroglandular density. BIRAD: 2 Benign findings. RECOMMENDATION: RECOMMENDED FOLLOW UP: Clinical follow-up for etiology of gynecomastia. If gynecoma stia clinically persists, then screening mammography in 1 year. SPECIFIC INTERVENTION/IMAGING/CONSULTATION RECOMMENDED:No additional intervention/ imaging/consultati on needed at this time. COMMUNICATION:The negative/benign results were communicated to the patient. COMMENT: The patient has been notified of the results by letter per SA requirements. Additional no tification policies are in place for contacting patient with suspicious or incomplete findings. Quality ID #[id number]: The [employer] recommends an annual screening mammogram for women aged 40 years or over. This facility utilizes a reminder system to ensure that all patients receive reminder letters, and/or direct phone calls for appointments. This includes reminders for routine scr eening mammograms, diagnostic mammograms, or other Breast Imaging Interventions when appropriate. Th is patient will be placed in the appropriate reminder system. The [employer] (ACR) has developed recommendations for screening MRI of the breast s in certain patient populations, to be used in conjunction with mammography. Breast MRI surveillanc e may be appropriate for women with more than 20% lifetime risk of developing breast cancer as deter mined by genetic testing, significant family history of the disease, or history of mantle radiation f or Hodgkins Disease. ACR Practice Guidelines 2008. DBT Technology DBT is a type of tomographic mammography. With conventional mammography, overlapping breast tissue ma y make lesions difficult to detect, even with good compression. DBT uses an x-ray tube that rotates a round the breast, taking images at different angles. These images are then combined to create thin sl ices of the breast that the radiologist can view as a 3D reconstruction. The AugmentWare unit can perform full-field digital mammograms (2D imaging); or DBT (3D imaging); or both, in a combination mode that quickly performs both the mammogram and the tomosynthesis scan while the breast is still compressed. PQRS 6045F: Fluoroscopic imaging is not utilized for breast tomosynthesis. TECHNICAL DOCUMENTATION: FINDING NUMBER: (1) ASSESSMENT: (1) JOB ID: [id number] [employer]- All Rights Reserved
== END ==
LOC: WI 10:21
PROVIDERS: ATTEND Family Medicine
DX: N64.4 Mastodynia (principal)
CPT/HCPCS: 76642; 77066; G0279; 77062

== ENCOUNTER → 2017-11-09 | Outpatient (CLI) | payer BC, MEDICARE ==
[2017-11-09 15:21] LABS: ANION GAP 11 (5-19); BLOOD UREA NITROGEN 22 mg/dL (7-20); CALCIUM 9.1 mg/dL (8.4-10.2); CARBON DIOXIDE 23 mmol/L (22-30); CHLORIDE 106 mmol/L (98-107); GLUCOSE 107 mg/dL (75-110); POTASSIUM 5.1 mmol/L (3.6-5.0); SODIUM 139.7 mmol/L (137-145)
== END ==
LOC: OD 12:55
PROVIDERS: ATTEND Family Medicine
DX: E78.5 Hyperlipidemia, unspecified (principal)
CPT/HCPCS: 36415; 80048

== ENCOUNTER → 2017-11-13 | Outpatient (CLI) | payer BC ==
--- NOTE | 2017-11-14 17:58 | XCELERA REPORT ---
[address] [address] Transthoracic Echocardiogram Report Name: REJI LOUIS Age: 77 yrs Gender: Male : 1940 Patient Status: Outpatient Patient Location: RAD Study Date: 11/13/2017 01:03 PM Procedure: A complete two-dimensional transthoracic echocardiogram was performed (2D, M-mode, spectral and color flow Doppler). The study was technically adequate with some images being suboptimal in quality. Reason For Study: HF Ordering Physician: DAVID LE Performed By: Ginette Pate Interpretation Summary The left ventricular ejection fraction is within normal limits. There is mild concentric left ventricular hypertrophy. The left ventricle is grossly normal size. Doppler measurements suggest pseudonormalized left ventricular relaxation, which is associated with grade II/IV or mild to moderate diastolic dysfunction Wall motion cannot be accurately commented on, but no definite regional wall motion abnormalities noted. The right ventricle is moderately dilated. The right ventricular systolic function is normal. The right atrium is moderate to severely dilated. The left atrium is severely dilated. There is a trace amount of mitral regurgitation There is no mitral valve stenosis. No aortic regurgitation is present. There is no aortic valve stenosis There is a trace to mild amount of tricuspid regurgitation There is mild to moderate pulmonary hypertension by echo Right ventricular systolic pressure is estimated to be elevated at 40-50mmHg. The aortic root is not well visualized but is probably normal size. The inferior vena cava was not well visualized There is no pericardial effusion. MMode/2D Measurements & Calculations RVDd: 4.4 cm LVIDd: 5.7 cm FS: 36.8 % Ao root diam: 3.3 cm IVSd: 0.98 cm LVIDs: 3.6 cm EDV(Teich): 157.1 ml Ao root area: 8.5 cm2 LVPWd: 1.2 cm ESV(Teich): 53.5 ml EF(Teich): 66.0 % Doppler Measurements & Calculations MV E max marycruz: MV dec slope: Ao V2 max: LV V1 max P.0 cm/sec 95.5 cm/sec 2.4 mmHg MV A max marycruz: 411.5 cm/sec2 Ao max P.7 mmHgLV V1 max: 37.1 cm/sec MV dec time: 0.17 sec 77.3 cm/sec MV E/A: 1.9 PA V2 max: PI max marycruz: TR max marycruz: 90.6 cm/sec 138.8 cm/sec 277.2 cm/sec PA max P.3 mmHg PI max P.7 mmHg TR max PG: PI dec slope: 30.7 mmHg 110.1 cm/sec2 Left Ventricle The left ventricle is grossly normal size. There is mild concentric left ventricular hypertrophy. The left ventricular ejection fraction is within normal limits. Doppler measurements suggest pseudonormalized left ventricular relaxation, which is associated with grade II/IV or mild to moderate diastolic dysfunction. Wall motion cannot be accurately commented on, but no definite regional wall motion abnormalities noted. Right Ventricle The right ventricle is moderately dilated. The right ventricular systolic function is normal. Atria The right atrium is moderate to severely dilated. The left atrium is severely dilated. Interarterial septum not well visualized and not well dopplered. Cannot comment on ASD/PFO presence. Mitral Valve The mitral valve leaflets are sclerotic, but show no functional abnormalities. There is no mitral valve stenosis. There is a trace amount of mitral regurgitation. Aortic Valve The aortic valve is not well visualized secondary to technical limitations. There is no aortic valve stenosis. No aortic regurgitation is present. Tricuspid Valve The tricuspid valve is not well visualized secondary to technical limitations. There is no tricuspid stenosis. There is a trace to mild amount of tricuspid regurgitation. There is mild to moderate pulmonary hypertension by echo. Right ventricular systolic pressure is estimated to be elevated at 40-50mmHg. Pulmonic Valve The pulmonic valve is not well visualized. Great Vessels The aortic root is not well visualized but is probably normal size. The inferior vena cava was not well visualized. Effusions There is no pericardial effusion. : DAVID LE > Abhi nIgram
== END ==
LOC: RAD 11:32
PROVIDERS: ATTEND Family Medicine
DX: I50.9 Heart failure, unspecified (principal)
CPT/HCPCS: 93306

== ENCOUNTER → 2019-02-25 | Outpatient (CLI) | payer BC ==
[2019-02-25 11:06] LABS: ANION GAP 10 (5-19); BLOOD UREA NITROGEN 21 mg/dL (7-20); CALCIUM 9.3 mg/dL (8.4-10.2); CARBON DIOXIDE 29 mmol/L (22-30); CHLORIDE 99 mmol/L (98-107); GLUCOSE 155 mg/dL (75-110); POTASSIUM 4.8 mmol/L (3.6-5.0)
== END ==
LOC: OD 09:47
PROVIDERS: ATTEND Family Medicine
DX: E87.5 Hyperkalemia (principal)
CPT/HCPCS: 36415; 80048